=== PATIENT | male | born 1935 | race Caucasian/White ===

== ENCOUNTER 2017-07-15 20:46 | Inpatient (IN) | payer OTHER ==
[~2017-07-15] VITALS: Ht 165.1 cm; Wt 58.8 kg
[2017-07-15] MEDS ORDERED: SOD CHLORIDE 0.9% 1,000 ML IV STA (21:13)
[2017-07-15] MEDS ORDERED: ASPIRIN 325 MG TAB PO STA (21:13)
[2017-07-15 21:37] LABS: BASOPHIL # 0.1 10^3/ul (0.0-0.1); BASOPHILS % 0.5 % (0.0-2.0); EOSINOPHILS # 0.2 10^3/ul (0.0-0.5); EOSINOPHILS % 1.9 % (0.0-7.0); HEMATOCRIT 36.8 % (42.0-52.0); HEMOGLOBIN 11.1 g/dl (14.0-18.0); LYMPHOCYTES # 2.2 10^3/ul (0.8-2.9); LYMPHOCYTES % 21.6 % (15.0-51.0); MEAN CORPUSCULAR HEMOGLOBIN 20.9 pg (29.0-33.0); MEAN CORPUSCULAR HGB CONC 30.2 g/dl (32.0-37.0); MEAN CORPUSCULAR VOLUME 69.3 fl (82.0-101.0); MONOCYTE # 0.6 10^3/ul (0.3-0.9); MONOCYTES % 6.2 % (0.0-11.0); NEUTROPHILS % 69.4 % (39.0-77.0); PLATELET COUNT 228 10^3/UL (140-415); RED BLOOD COUNT 5.31 10^6/ul (4.70-6.10); RED CELL DISTRIBUTION WIDTH 15.4 % (11.5-14.5)
[2017-07-15] MEDS ORDERED: SYMB80120 INHALATION (21:45)
[2017-07-15] MEDS ORDERED: GLIP5TAB13 PO (21:46)
[2017-07-15] MEDS ORDERED: LISI20TA11 PO (21:46)
[2017-07-15] MEDS ORDERED: TRAZ50TA18 PO (21:46)
[2017-07-15] MEDS ORDERED: TERA10CA42 PO (21:47)
[2017-07-15] MEDS ORDERED: ALBU8.5H3 INH (21:48)
[2017-07-15] MEDS ORDERED: LOVA20TA PO (21:48)
[2017-07-15 21:53] LABS: INR 1.02; PROTIME 13.4 Sec (12.2-14.2)
[2017-07-15 21:54] LABS: PARTIAL THROMBOPLASTIN TIME 29.2 Sec (25.0-35.0)
[2017-07-15 21:58] LABS: ANION GAP 19 (8-16); BLOOD UREA NITROGEN 29 mg/dl (7-20); CALCIUM 8.8 mg/dl (8.4-10.2); CARBON DIOXIDE 26 mmol/L (21-31); CHLORIDE 100 mmol/L (97-110); CREATININE 1.74 mg/dl (0.61-1.24); GLUCOSE 236 mg/dl (70-220); POTASSIUM 4.6 mmol/L (3.5-5.1); SODIUM 140 mmol/L (135-144)
[2017-07-15 22:10] LABS: TROPONIN-I < 0.012 ng/ml (0.00-0.12)
--- NOTE | 2017-07-15 22:11 | RADRPT ---
PROCEDURE: XR Chest. CLINICAL INDICATION: Chest Pain. TECHNIQUE: Single frontal view of the chest. COMPARISON: None. FINDINGS: The cardiomediastinal silhouette is within normal limits. Atherosclerotic calcifications in the thor acic aorta. Likely hyperinflation of COPD with changes of centrolobular emphysema. Mild bibasilar atelectasis versus airspace disease. The lungs are clear. No signs of pleural fluid or pneumothorax are seen. The osseous structures and soft tissues are unremarkable. IMPRESSION: Mild failure. RPTAT: [facility] Physician Ingrid Date Time Electronically viewed and signed by Physician Ingrid on 07/15/2017 22:11 RS/
[2017-07-15 22:12] VITALS: TEMP 96.5
--- NOTE | 2017-07-15 22:55 | ERA ---
ER Documentation Chief Complaint Date/Time DATE: 07/15/17 TIME: 22:44 Chief Complaint JHOANA RA100 from home, hypotension,mild headache HPI This is an 82-year-old male with a past medical history of hypertension, diabetes, COPD, sleeping issues, BPH who is presenting with sudden onset moderate pressure-like left-sided chest pain radiating to the right arm while sitting on his couch. He got up from the couch and suddenly collapsed. He did not lose consciousness, but he felt very faint. An ambulance was called and his systolic blood pressure was found to be in the 70s by paramedics. The patient was transferred here for further evaluation. The patient's chest pain and lightheadedness resolved in route. He did take Tylenol prior to arrival, but he has not taken any aspirin. The patient does not endorse any chest pain symptoms at this time. The patient was started on IV fluids en route to the hospital per He has not felt sick recently. He denies any fever or chills. He denies any nausea or vomiting. He denies any shortness of breath. He denies any abdominal pain. He denies any focal deficits. He has no weakness or numbness or tingling to the face or extremities. ROS All systems reviewed and are negative except as per history of present illness. Medications Home Meds Reported Medications Lovastatin* (Lovastatin*) 20 Mg Tablet, 20 MG PO HS, TAB 07/15/17 Albuterol Sulfate* (Proair HFA*) 8.5 Gm Hfa.aer.ad, 2 PUFF INH Q4H Y for WHEEZING AND SOB, #1 INHALER 07/15/17 Terazosin Hcl* (Terazosin Hcl*) 10 Mg Capsule, 10 MG PO HS, CAP 07/15/17 Glipizide* (Glipizide*) 5 Mg Tablet, 5 MG PO AC BREAKFAST, TAB 07/15/17 Trazodone Hcl* (Trazodone Hcl*) 50 Mg Tablet, 50 MG PO QHS, #30 TAB 07/15/17 Lisinopril* (Lisinopril*) 20 Mg Tablet, 20 MG PO DAILY, #30 TAB 07/15/17 Budesonide-Formoterol Fumarate* (Symbicort*) 80-4.5 Inha, 2 PUFFS INHALATION BID , #1 EACH 07/15/17 Allergies Allergies: Coded Allergies: erythromycin base (Verified Allergy, Unknown, 07/15/17) PMhx/Soc History of Surgery: Yes (appy, eye lid surgery) Anesthesia Reaction: No Hx Neurological Disorder: No Hx Respiratory Disorders: Yes (copd) Hx Cardiac Disorders: Yes (htn, high cholesterol) Hx Psychiatric Problems: No Hx Miscellaneous Medical Probl: Yes (dm, kidney disease stage 3, mediteranean anemia) Hx Alcohol Use: Yes (0wine) Hx Substance Use: No Hx Tobacco Use: Yes Smoking Status: Former smoker FmHx Family History: diabetes Physical Exam Vitals Vital Signs Date Time Temp Pulse Resp B/P Pulse Ox O2 Delivery O2 Flow Rate FiO2 07/15/17 22:12 96.5 108 16 99/48 94 Nasal Cannula 2.0 07/15/17 21:34 Nasal Cannula 2 07/15/17 20:55 100.3 85 18 73/37 89 Physical Exam Const: No apparent distress Head: Atraumatic Eyes: Normal Conjunctiva ENT: Normal External Ears, Nose and Mouth. Neck: Full range of motion.~ No meningismus. Resp: Clear to auscultation bilaterally Cardio: Regular rate and rhythm, no murmurs Abd: Soft, non tender, non distended. Normal bowel sounds Skin: No petechiae or rashes Back: No midline or flank tenderness Ext: No cyanosis, or edema, mild pallor Neur: Awake and alert Psych: Normal Mood and Affect Result Diagram: 07/15/17211407/15/172114 Results 24 hrs Laboratory Tests Test 07/15/17 21:15 White Blood Count 10.010^3/ul Red Blood Count 5.3110^6/ul Hemoglobin 11.1g/dl Hematocrit 36.8% Mean Corpuscular Volume 69.3fl Mean Corpuscular Hemoglobin 20.9pg Mean Corpuscular Hemoglobin Concent 30.2g/dl Red Cell Distribution Width 15.4% Platelet Count 08941^3/UL Mean Platelet Volume 9.0fl Neutrophils % 69.4% Lymphocytes % 21.6% Monocytes % 6.2% Eosinophils % 1.9% Basophils % 0.5% Nucleated Red Blood Cells % 0.0/100WBC Neutrophils # (Manual) 710^3/ul Lymphocytes # 2.210^3/ul Monocytes # 0.610^3/ul Eosinophils # 0.210^3/ul Basophils # 0.110^3/ul Nucleated Red Blood Cells # 0.010^3/ul Prothrombin Time 13.4Sec Prothrombin Time Ratio 1.0 INR International Normalized Ratio 1.02 Activated Partial Thromboplast Time 29.2Sec Sodium Level 140mmol/L Potassium Level 4.6mmol/L Chloride Level 100mmol/L Carbon Dioxide Level 26mmol/L Anion Gap 19 Blood Urea Nitrogen 29mg/dl Creatinine 1.74mg/dl Glucose Level 236mg/dl Calcium Level 8.8mg/dl Troponin I < 0.012ng/ml Current Medications Medications (Trade) Dose Ordered Sig/Sean Route PRN Reason Start Time Stop Time Status Last Admin Dose Admin Sodium Chloride (NS) 1,000 ml @ 1,000 mls/hr Q1H STAT IV 07/15/17 21:13 07/15/17 22:12 DC 07/15/17 21:46 Aspirin (Aspirin) 325 mg ONCE STAT PO 07/15/17 21:13 07/15/17 21:14 DC 07/15/17 21:46 Procedures/MDM The patient's presentation warrants a cardiac workup. Patient's chest x-ray was read by the radiologist as having mild failure with vascular congestion. The patient's EKG demonstrates a normal sinus rhythm at 88 bpm. The patient's [place] interval and QRS are within normal limits. The patient's QTC is less than 500 and appears less than half the RR interval. The patient does have ST depressions in the inferior leads of 2, 3 and aVF. This is concerning for inferior ischemia. The patient's blood work was obtained and reviewed. The patient does not have leukocytosis and I do not suspect an infectious etiology. He does have mild anemia does not need to be emergently treated. Patient does have an elevated creatinine, which could represent acute kidney injury, but is not double his baseline. The patient's troponin is negative. I will add a BNP as well, but the patient does not have significant rales and I do not suspect significant heart failure clinically. Patient got aspirin and IV fluids in the emergency department. He was also started on nasal cannula as he was hypoxic to the 87-88%. I do not intend to start heparin at this time as the patient's chest pain completely resolved and his troponin is negative. He will require serial troponins and EKGs in the hospital. He will require cardiology consult in the hospital. Departure Diagnosis: Primary Impression: Chest pain at rest Additional Impressions: Hypotension Qualified Code: I95.9 - Hypotension, unspecified hypotension type Hypoxia ST segment depression Postural dizziness with presyncope Condition: Serious BELLA VALLE MD Jul 15, 2017 22:55
[2017-07-15] MEDS ORDERED: SOD CHLORIDE 0.9% 1,000 ML IV SCH (23:05)
[2017-07-15] MEDS ORDERED: ACETAMINOPHEN 325 MG TAB PO PRN (23:30)
[2017-07-15] MEDS ORDERED: ONDANSETRON 4 MG INJ IV PRN (23:30)
[2017-07-16] VITALS (14 sets, daily range): BP systolic 83–140; BP diastolic 47–63; PULSE 50–107; RESP 17–20; Ht 165.1 cm; Wt 58.8 kg
[2017-07-16] MEDS ORDERED: INSULIN GLARGINE [LANtus] 3 ML PEN SC ONE (01:00)
[2017-07-16] MEDS ORDERED: ONDANSETRON 4 MG INJ IV PRN (01:00)
[2017-07-16] MEDS ORDERED: morphine 2 MG INJ IV PRN (01:00)
[2017-07-16] MEDS ORDERED: NITROGLYCERIN (SL) 0.4 MG TAB SL PRN (01:00)
[2017-07-16] MEDS ORDERED: INSULIN ASPART [NOVOLOG] 3 ML PEN SC ONE (01:00)
[2017-07-16] MEDS ORDERED: ALBUTEROL HFA 8 GM INHALER INH PRN (01:00)
[2017-07-16] MEDS ORDERED: ALBUTEROL/IPRATROPIUM (NEB) 3 ML AMP HHN PRN (01:00)
[2017-07-16] MEDS ORDERED: ACETAMINOPHEN 325 MG TAB PO PRN (01:00)
[2017-07-16] MEDS ORDERED: GLUCOSE GEL 15 GRAM TUBE PO PRN ×2 (01:30)
[2017-07-16] MEDS ORDERED: DEXTROSE 50% 50 ML SYRINGE IV PRN ×2 (01:30)
[2017-07-16] MEDS ORDERED: GLUCOSE GEL 15 GRAM TUBE BUCCAL PRN (01:30)
[2017-07-16] MEDS ORDERED: GLUCAGON 1 MG INJ IM PRN (01:30)
[2017-07-16] MEDS: HEPARIN 5,000 UNIT/0.5 ML VIAL SC SCH ×3 (01:54→21:15)
[2017-07-16] MEDS: ACCU-CHEK XX SCH (01:54)
[2017-07-16] MEDS ORDERED: ALBUTEROL 18 GM INHALER INH PRN (02:00)
[2017-07-16 04:28] LABS: BASOPHILS % 0.5 % (0.0-2.0); EOSINOPHILS # 0.1 10^3/ul (0.0-0.5); EOSINOPHILS % 0.9 % (0.0-7.0); HEMATOCRIT 33.9 % (42.0-52.0); HEMOGLOBIN 10.3 g/dl (14.0-18.0); LYMPHOCYTES # 2.3 10^3/ul (0.8-2.9); LYMPHOCYTES % 26.7 % (15.0-51.0); MEAN CORPUSCULAR HEMOGLOBIN 21.6 pg (29.0-33.0); MEAN CORPUSCULAR HGB CONC 30.4 g/dl (32.0-37.0); MEAN CORPUSCULAR VOLUME 71.1 fl (82.0-101.0); MEAN PLATELET VOLUME 9.5 fl (7.4-10.4); MONOCYTE # 0.6 10^3/ul (0.3-0.9); MONOCYTES % 6.3 % (0.0-11.0); NEUTROPHILS % 65.1 % (39.0-77.0); PLATELET COUNT 208 10^3/UL (140-415); RED BLOOD COUNT 4.77 10^6/ul (4.70-6.10); RED CELL DISTRIBUTION WIDTH 15.4 % (11.5-14.5); WHITE BLOOD COUNT 8.8 10^3/ul (4.8-10.8)
[2017-07-16] MEDS ORDERED: SOD CHLORIDE 0.9% 250 ML IV ONE (04:30)
[2017-07-16 04:50] LABS: ALBUMIN 3.3 g/dl (3.3-4.9); ALBUMIN/GLOBULIN RATIO 1.13; BILIRUBIN,INDIRECT 0.2 mg/dl (0-1.1); BILIRUBIN,TOTAL 0.2 mg/dl (0.2-1.3); CALCIUM 8.4 mg/dl (8.4-10.2); CHOL/HDL RATIO 3.6 RATIO; CREATININE 1.69 mg/dl (0.61-1.24); MAGNESIUM 1.8 mg/dl (1.7-2.5); PHOSPHORUS 3.5 mg/dl (2.5-4.9); POTASSIUM 4.1 mmol/L (3.5-5.1); TOTAL PROTEIN 6.2 g/dl (6.1-8.1)
[2017-07-16 04:51] LABS: CREATINE KINASE 33 IU/L (23-200)
[2017-07-16 05:12] LABS: CK-MB 1.52 ng/ml (0.0-2.4); TROPONIN-I < 0.012 ng/ml (0.00-0.12)
[2017-07-16 05:51] LABS: THYROID STIMULATING HORMONE 0.577 MIU/L (0.465-4.680)
--- NOTE | 2017-07-16 06:09 | HP ---
Date/Time of Note Date/Time of Note DATE: 07/16/17 TIME: 05:55 Assessment/Plan VTE Prophylaxis VTE Prophylaxis Intervention: heparin Lines/Catheters IV Catheter Type (from Nrsg): Saline Lock Assessment/Plan Assessment/Plan 1. Chest pain, rule out ACS: EKG was ST depression -Continue telemetry monitoring -Supplemental oxygen, aspirin, statin, as needed and nitro and morphine. Patient has been hypotensive and as such no beta-viji -Trend troponin -2D echo and cardiology consult 2. Hypotension -Likely from dehydration versus cardiac etiology -will give gentle hydration 3. Acute CHF exacerbation - will obtain 2D echo - will hold diuresis given repeated hypotension 4. COPD -Supplemental oxygen, bronchodilators. Steroid as needed 5. Presumed acute kidney injury -Gentle IV fluid -Monitor a.m. lab and then will determine if renal ultrasound and nephrology consult is warranted 6. History of hypertension: Patient has been hypotensive -Hold antihypertensives for now 7. Type 2 diabetes -Check A1c -Insulin while in-house 8. History of dyslipidemia - will check fasting lipid panel in the morning - Continue statin HPI/ROS Admit Date/Time Admit Date/Time Jul 15, 2017 at 23:06 Hx of Present Illness This is an 82-year-old male with history of hypertension, diabetes, COPD and BPH who presented to the emergency department complaining of chest pain, lightheadedness and shortness of breath. Patient was sitting at home when he had sudden onset of midsternal chest pain, which is pressure-like with radiation to his right arm. When the patient got up, he felt weak and lightheaded and fell to the floor. No loss of consciousness. Denied palpitations, fever, chills, nausea, vomiting or diaphoresis. He did report that over the past 2-3 days, he has been feeling weak. When he presented to the ER patient was hypotensive with a blood pressure of 73/ 37, febrile with a temperature of 100.3. EKG shows ST depression. Labs shows that first troponin is negative, hemoglobin 11.1 with MCV of 69, creatinine 1.74 and glucose 236 otherwise the rest of CBC and BMP are within normal limits. Chest x-ray shows mild failure. He received aspirin and insulin while in the ER. . PMH/Family/Social Past Medical History Medical History: diabetes, hypertension, other (COPD) Social History Alcohol Use: none Smoking Status: Former smoker Drug Use: none Exam/Review of Systems Vital Signs Vitals Vital Signs Date Time Temp Pulse Resp B/P Pulse Ox O2 Delivery O2 Flow Rate FiO2 07/16/17 05:05 66 18 101/47 07/16/17 03:59 97.8 95 07/16/17 01:53 2.0 07/16/17 01:00 Nasal Cannula Intake and Output 07/15/17 07/15/17 07/16/17 15:00 23:00 07:00 Output Total 200 ml Balance -200 ml Exam Constitutional: other (Sleepy but arousable, appears somehow weak) Head: atraumatic, normocephalic Eyes: EOMI, PERRL Respiratory: clear to auscultation, normal air movement Cardiovascular: nl pulses, regular rate and rhythm Gastrointestinal: non-tender, soft Extremities: normal pulses Labs Result Diagram: 07/16/17 0344 07/16/17 0344 Medications Medications Current Medications Sodium Chloride (NS) 1,000 ml @ 80 mls/hr [id number] IV ; Start 07/15/17 at 23:05 ; Stop 07/16/17 at 11:34 Lisinopril (Zestril) 20 mg DAILY PO ; Start 07/16/17 at 09:00 Terazosin HCl (Hytrin) 10 mg HS PO ; Start 07/16/17 at 21:00 Trazodone HCl (Desyrel) 50 mg QHS PO ; Start 07/16/17 at 21:00 Miscellaneous Information 2 puffs BID INHALATION ; Start 07/16/17 at 09:00; Status UNV Atorvastatin Calcium (Lipitor) 20 mg HS PO ; Start 07/16/17 at 21:00 Ondansetron HCl (Zofran Inj) 4 mg Q4H PRN IV NAUSEA AND/OR VOMITING; Start at 01:00 Nitroglycerin (Nitroglycerin (Sl Tab) 0.4 Mg) 1 tab Q5M PRN SL ANGINA; Start at 01:00 Morphine Sulfate (morphine) 2 mg Q4H PRN IV PAIN; Start 07/16/17 at 01:00 Acetaminophen (Tylenol Tab) 650 mg Q6H PRN PO PAIN AND OR ELEVATED TEMP; Start 07/16/17 at 01:00 Aspirin (Aspirin) 81 mg DAILY PO ; Start 07/16/17 at 09:00 Diagnostic Test (Pha) (Accu-Chek) 1 ea 02 XX ; Start 07/16/17 at 02:00 Insulin Glargine (Lantus) 15 unit HS SC ; Start 07/16/17 at 21:00 Heparin Sodium (Porcine) (Heparin (5000 Units/0.5 ml)) 5,000 unit BID SC Last administered on 07/16/17t 01:54; Admin Dose 5,000 UNIT; Start 07/16/17 at 02:00 Miscellaneous Information 1 ea NOTE XX ; Start 07/16/17 at 01:30 Glucose (Glutose) 15 gm Q15M PRN PO DECREASED GLUCOSE; Start 07/16/17 at 01:30 Glucose (Glutose) 22.5 gm Q15M PRN PO DECREASED GLUCOSE; Start 07/16/17 at 01: 30 Dextrose (D50w Syringe) 25 ml Q15M PRN IV DECREASED GLUCOSE; Start 07/16/17 at 01:30 Dextrose (D50w Syringe) 50 ml Q15M PRN IV DECREASED GLUCOSE; Start 07/16/17 at 01:30 Glucagon (Glucagen) 1 mg Q15M PRN IM DECREASED GLUCOSE; Start 07/16/17 at 01:30 Glucose (Glutose) 15 gm Q15M PRN BUCCAL DECREASED GLUCOSE; Start 07/16/17 at 01 :30 Albuterol (Ventolin Hfa) 2 puff Q4H PRN INH WHEEZING, SOB; Start 07/16/17 at 02 :00 MERVAT FERRO MD Jul 16, 2017 06:05
[2017-07-16] MEDS: INSULIN ASPART [NOVOLOG] 3 ML PEN SC SCH ×4 (08:00→21:00)
[2017-07-16] MEDS: LISINOPRIL 20 MG TAB PO SCH (09:00)
[2017-07-16] MEDS: SALMETEROL/FLUTICASONE 100/50 INHA INH SCH ×2 (10:12→21:04)
[2017-07-16] MEDS: ASPIRIN 81 MG TAB PO SCH (10:13)
[2017-07-16 12:16] LABS: CREATINE KINASE 32 IU/L (23-200)
[2017-07-16 12:29] LABS: CK-MB 1.48 ng/ml (0.0-2.4); TROPONIN-I < 0.012 ng/ml (0.00-0.12)
--- NOTE | 2017-07-16 14:26 | PN ---
Date/Time of Note Date/Time of Note DATE: 07/16/17 TIME: 14:24 Assessment/Plan VTE Prophylaxis VTE Prophylaxis Intervention: heparin Lines/Catheters IV Catheter Type (from Nrsg): Saline Lock Assessment/Plan Chief Complaint/Hosp Course Assessment and plan 1. Chest pain. EKG noted with ST depression. Continue telemetry monitoring. Initial troponins negative. Follow-up with senior it specialist. Echocardiogram pending 2. Hypotension. Continue IV hydration. Stable at present. Will monitor 3. CHF exacerbation. Follow-up on echocardiogram. Diuresis on hold due to hypotension. 4. History of COPD. Off O2. Continue bronchodilators as needed. Stable at present. 5. Acute kidney injury. Continue on IV hydration. 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 Diabetes. Continue insulin regimen 8. History of dyslipidemia. Continue on statin Disposition and plan:senior it specialist consulted. Continue telemetry monitoring. Follow-up with recommendations and echocardiogram. Discussed plan of care with Dr. Orlando Problems: Subjective 24 Hr Interval Summary Free Text/Dictation Resting bed. Family at bedside. No reported chest pain at this time. Exam/Review of Systems Vital Signs Vitals Vital Signs Date Time Temp Pulse Resp B/P Pulse Ox O2 Delivery O2 Flow Rate FiO2 07/16/17 11:24 97.5 65 20 110/55 98 07/16/17 01:53 2.0 07/16/17 01:00 Nasal Cannula Intake and Output 07/15/17 07/15/17 07/16/17 14:59 22:59 06:59 Intake Total 250 ml Output Total 200 ml Balance 50 ml Exam Constitutional: alert, oriented Psych: nl mood/affect Head: normocephalic Eyes: nl conjunctiva Respiratory: clear to auscultation, normal air movement Cardiovascular: regular rate and rhythm Gastrointestinal: non-tender, soft Extremities: normal pulses Neurological: LOBBY CONCIERGE II-XII intact, nl mental status, nl speech Results Result Diagram: 07/16/17 0344 07/16/17 0344 Results 24 hrs Laboratory Tests Test 07/15/17 21:15 07/16/17 00:29 07/16/17 01:38 07/16/17 03:44 White Blood Count 10.0 8.8 Red Blood Count 5.31 4.77 Hemoglobin 11.1 L 10.3 L Hematocrit 36.8 L 33.9 L Mean Corpuscular Volume 69.3 L 71.1 L Mean Corpuscular Hemoglobin 20.9 L 21.6 L Mean Corpuscular Hemoglobin Concent 30.2 L 30.4 L Red Cell Distribution Width 15.4 H 15.4 H Platelet Count 228 208 Mean Platelet Volume 9.0 9.5 Neutrophils % 69.4 65.1 Lymphocytes % 21.6 26.7 Monocytes % 6.2 6.3 Eosinophils % 1.9 0.9 Basophils % 0.5 0.5 Nucleated Red Blood Cells % 0.0 0.0 Neutrophils # (Manual) 7 6 Lymphocytes # 2.2 2.3 Monocytes # 0.6 0.6 Eosinophils # 0.2 0.1 Basophils # 0.1 0.0 Nucleated Red Blood Cells # 0.0 0.0 Prothrombin Time 13.4 Prothrombin Time Ratio 1.0 INR International Normalized Ratio 1.02 Activated Partial Thromboplast Time 29.2 Sodium Level 140 138 Potassium Level 4.6 4.1 Chloride Level 100 109 Carbon Dioxide Level 26 20 L Anion Gap 19 H 13 Blood Urea Nitrogen 29 H 30 H Creatinine 1.74 H 1.69 H Glucose Level 236 H 180 Calcium Level 8.8 8.4 Troponin I < 0.012 < 0.012 Bedside Glucose 374 H 347 H Hemoglobin A1c 6.3 H Phosphorus Level 3.5 Magnesium Level 1.8 Total Bilirubin 0.2 Direct Bilirubin 0.00 Indirect Bilirubin 0.2 Aspartate Amino Transf (AST/SGOT) 33 Alanine Aminotransferase (ALT/SGPT) 20 Alkaline Phosphatase 52 Creatine Kinase 33 Creatine Kinase Index 4.6 Creatinine Kinase MB (Mass) 1.52 Total Protein 6.2 Albumin 3.3 Globulin 2.90 Albumin/Globulin Ratio 1.13 Triglycerides Level 41 Cholesterol Level 102 LDL Cholesterol, Calculated 66 HDL Cholesterol 28 L Cholesterol/HDL Ratio 3.6 Thyroid Stimulating Hormone (TSH) 0.577 Test 07/16/17 04:09 07/16/17 08:58 07/16/17 11:33 07/16/17 12:56 Bedside Glucose 168 71 67 L Creatine Kinase 32 Creatine Kinase Index 4.6 Creatinine Kinase MB (Mass) 1.48 Troponin I < 0.012 Medications Medications Current Medications Lisinopril (Zestril) 20 mg DAILY PO ; Start 07/16/17 at 09:00 Terazosin HCl (Hytrin) 10 mg HS PO ; Start 07/16/17 at 21:00 Trazodone HCl (Desyrel) 50 mg QHS PO ; Start 07/16/17 at 21:00 Salmeterol Xinafoate/ Fluticasone (Advair 100/50 Diskus) 1 inh BID INH Last administered on 07/16/17 10:12; Admin Dose 1 INH; Start 07/16/17 at 09:00 Atorvastatin Calcium (Lipitor) 20 mg HS PO ; Start 07/16/17 at 21:00 Ondansetron HCl (Zofran Inj) 4 mg Q4H PRN IV NAUSEA AND/OR VOMITING; Start at 01:00 Nitroglycerin (Nitroglycerin (Sl Tab) 0.4 Mg) 1 tab Q5M PRN SL ANGINA; Start at 01:00 Morphine Sulfate (morphine) 2 mg Q4H PRN IV PAIN; Start 07/16/17 at 01:00 Acetaminophen (Tylenol Tab) 650 mg Q6H PRN PO PAIN AND OR ELEVATED TEMP; Start 07/16/17 at 01:00 Aspirin (Aspirin) 81 mg DAILY PO Last administered on 07/16/17 10:13; Admin Dose 81 MG; Start 07/16/17 at 09:00 Diagnostic Test (Pha) (Accu-Chek) 1 ea 02 XX ; Start 07/16/17 at 02:00 Insulin Glargine (Lantus) 15 unit HS SC ; Start 07/16/17 at 21:00 Heparin Sodium (Porcine) (Heparin (5000 Units/0.5 ml)) 5,000 unit BID SC Last administered on 07/16/17 10:15; Admin Dose 5,000 UNIT; Start 07/16/17 at 02:00 Miscellaneous Information 1 ea NOTE XX ; Start 07/16/17 at 01:30 Glucose (Glutose) 15 gm Q15M PRN PO DECREASED GLUCOSE; Start 07/16/17 at 01:30 Glucose (Glutose) 22.5 gm Q15M PRN PO DECREASED GLUCOSE; Start 07/16/17 at 01: 30 Dextrose (D50w Syringe) 25 ml Q15M PRN IV DECREASED GLUCOSE; Start 07/16/17 at 01:30 Dextrose (D50w Syringe) 50 ml Q15M PRN IV DECREASED GLUCOSE; Start 8/19/17 at 01:30 Glucagon (Glucagen) 1 mg Q15M PRN IM DECREASED GLUCOSE; Start 07/16/17 at 01:30 Glucose (Glutose) 15 gm Q15M PRN BUCCAL DECREASED GLUCOSE; Start 07/16/17 at 01 :30 Albuterol (Ventolin Hfa) 2 puff Q4H PRN INH WHEEZING, SOB; Start 07/16/17 at 02 :00 WOO HECK Jul 16, 2017 14:26
--- NOTE | 2017-07-16 19:02 | CONS ---
Date/Time of Note Date/Time of Note DATE: 07/16/17 TIME: 18:53 Assessment/Plan Assessment/Plan Additional Assessment/Plan 1. Acute Kindey injury vs MIREYA on CKD due to Hemodyamicas from Huypotension and CHF 2. CHF exacerbation 3. chest pain 4, COPD 5. possible CKD from CHF- unknown creatinine and unknown stage Plan: Continue IVF hydration Hold diuretics Avoid hypotension Urine stuides has been ordered including, Urine prot/cr ration, Urine Na, urine uric acid, Urine eosinophils CK total, Uric acid Renal US has been ordered pt received IVF since admission, CXR previosly showed mild failure, Hodl IVF tonight, will follow up on CXR in AM to decide if pt needs IVF vs resumption of diuretics, BNP has been orderd with AML thanks for consultation, will follow up Consultation Date/Type/Reason Admit Date/Time Jul 15, 2017 at 23:06 Date of Consultation: Jul 16, 2017 Type of Consultation: NEPHROLOGY Reason for Consultation acute kidney injury, chest pain Referring Provider: MERVAT FERRO MD Hx of Present Illness 82-year-old male with history of hypertension, diabetes, COPD and BPH who presented to the emergency department complaining of chest pain, lightheadedness and shortness of breath. Patient was sitting at home when he had sudden onset of midsternal chest pain, which is pressure-like with radiation to his right arm. When the patient got up, he felt weak and lightheaded and fell to the floor. No loss of consciousness. Denied palpitations, fever, chills, nausea, vomiting or diaphoresis. He did report that over the past 2-3 days, he has been feeling weak. When he presented to the ER patient was hypotensive with a blood pressure of 73/ 37, febrile with a temperature of 100.3. EKG shows ST depression. Labs shows that first troponin is negative, hemoglobin 11.1 with MCV of 69, creatinine 1.74 and glucose 236 otherwise the rest of CBC and BMP are within normal limits. Chest x-ray shows mild failure. pt had a creatioine 1.74 on admission ,diuretics has been hold, gentle hydration given, still elevated Cr, renal has been consulted for it Psychological: nl mood/affect Past Medical History Medical History: diabetes, hypertension, other (COPD) Social History Alcohol Use: none Smoking Status: Former smoker Drug Use: none Exam/Review of Systems Vital Signs Vitals Vital Signs Date Time Temp Pulse Resp B/P Pulse Ox O2 Delivery O2 Flow Rate FiO2 07/16/17 16:16 97.9 71 18 128/60 93 07/16/17 08:20 Nasal Cannula 2.0 Intake and Output 07/15/17 07/15/17 07/16/17 15:00 23:00 07:00 Intake Total 250 ml Output Total 200 ml Balance 50 ml Exam Constitutional: weak, tired, sleepy Head: atraumatic, normocephalic Eyes: EOMI, PERRL Respiratory: clear to auscultation, normal air movement Cardiovascular: nl pulses, regular rate and rhythm Gastrointestinal: non-tender, soft Extremities: normal pulses Results Result Diagram: 07/16/17 0344 07/16/17 0344 Results 24 hrs Laboratory Tests Test 07/15/17 21:15 07/16/17 00:29 07/16/17 01:38 07/16/17 03:44 White Blood Count 10.0 8.8 Red Blood Count 5.31 4.77 Hemoglobin 11.1 L 10.3 L Hematocrit 36.8 L 33.9 L Mean Corpuscular Volume 69.3 L 71.1 L Mean Corpuscular Hemoglobin 20.9 L 21.6 L Mean Corpuscular Hemoglobin Concent 30.2 L 30.4 L Red Cell Distribution Width 15.4 H 15.4 H Platelet Count 228 208 Mean Platelet Volume 9.0 9.5 Neutrophils % 69.4 65.1 Lymphocytes % 21.6 26.7 Monocytes % 6.2 6.3 Eosinophils % 1.9 0.9 Basophils % 0.5 0.5 Nucleated Red Blood Cells % 0.0 0.0 Neutrophils # (Manual) 7 6 Lymphocytes # 2.2 2.3 Monocytes # 0.6 0.6 Eosinophils # 0.2 0.1 Basophils # 0.1 0.0 Nucleated Red Blood Cells # 0.0 0.0 Prothrombin Time 13.4 Prothrombin Time Ratio 1.0 INR International Normalized Ratio 1.02 Activated Partial Thromboplast Time 29.2 Sodium Level 140 138 Potassium Level 4.6 4.1 Chloride Level 100 109 Carbon Dioxide Level 26 20 L Anion Gap 19 H 13 Blood Urea Nitrogen 29 H 30 H Creatinine 1.74 H 1.69 H Glucose Level 236 H 180 Calcium Level 8.8 8.4 Troponin I < 0.012 < 0.012 Bedside Glucose 374 H 347 H Hemoglobin A1c 6.3 H Phosphorus Level 3.5 Magnesium Level 1.8 Total Bilirubin 0.2 Direct Bilirubin 0.00 Indirect Bilirubin 0.2 Aspartate Amino Transf (AST/SGOT) 33 Alanine Aminotransferase (ALT/SGPT) 20 Alkaline Phosphatase 52 Creatine Kinase 33 Creatine Kinase Index 4.6 Creatinine Kinase MB (Mass) 1.52 Total Protein 6.2 Albumin 3.3 Globulin 2.90 Albumin/Globulin Ratio 1.13 Triglycerides Level 41 Cholesterol Level 102 LDL Cholesterol, Calculated 66 HDL Cholesterol 28 L Cholesterol/HDL Ratio 3.6 Thyroid Stimulating Hormone (TSH) 0.577 Test 07/16/17 04:09 07/16/17 08:58 07/16/17 11:33 07/16/17 12:56 Bedside Glucose 168 71 67 L Creatine Kinase 32 Creatine Kinase Index 4.6 Creatinine Kinase MB (Mass) 1.48 Troponin I < 0.012 Test 07/16/17 17:54 Bedside Glucose 101 Medications Medications Current Medications Lisinopril (Zestril) 20 mg DAILY PO ; Start 07/16/17 at 09:00 Terazosin HCl (Hytrin) 10 mg HS PO ; Start 07/16/17 at 21:00 Trazodone HCl (Desyrel) 50 mg QHS PO ; Start 07/16/17 at 21:00 Salmeterol Xinafoate/ Fluticasone (Advair 100/50 Diskus) 1 inh BID INH Last administered on 07/16/17t 10:12; Admin Dose 1 INH; Start 07/16/17 at 09:00 Atorvastatin Calcium (Lipitor) 20 mg HS PO ; Start 07/16/17 at 21:00 Ondansetron HCl (Zofran Inj) 4 mg Q4H PRN IV NAUSEA AND/OR VOMITING; Start at 01:00 Nitroglycerin (Nitroglycerin (Sl Tab) 0.4 Mg) 1 tab Q5M PRN SL ANGINA; Start at 01:00 Morphine Sulfate (morphine) 2 mg Q4H PRN IV PAIN; Start 07/16/17 at 01:00 Acetaminophen (Tylenol Tab) 650 mg Q6H PRN PO PAIN AND OR ELEVATED TEMP; Start 07/16/17 at 01:00 Aspirin (Aspirin) 81 mg DAILY PO Last administered on 07/16/17 10:13; Admin Dose 81 MG; Start 07/16/17 at 09:00 Diagnostic Test (Pha) (Accu-Chek) 1 ea 02 XX ; Start 07/16/17 at 02:00 Insulin Glargine (Lantus) 15 unit HS SC ; Start 07/16/17 at 21:00 Heparin Sodium (Porcine) (Heparin (5000 Units/0.5 ml)) 5,000 unit BID SC Last administered on 07/16/17 10:15; Admin Dose 5,000 UNIT; Start 07/16/17 at 02:00 Miscellaneous Information 1 ea NOTE XX ; Start 07/16/17 at 01:30 Glucose (Glutose) 15 gm Q15M PRN PO DECREASED GLUCOSE; Start 07/16/17 at 01:30 Glucose (Glutose) 22.5 gm Q15M PRN PO DECREASED GLUCOSE; Start 07/16/17 at 01: 30 Dextrose (D50w Syringe) 25 ml Q15M PRN IV DECREASED GLUCOSE; Start 07/16/17 at 01:30 Dextrose (D50w Syringe) 50 ml Q15M PRN IV DECREASED GLUCOSE; Start 07/16/17 at 01:30 Glucagon (Glucagen) 1 mg Q15M PRN IM DECREASED GLUCOSE; Start 07/16/17 at 01:30 Glucose (Glutose) 15 gm Q15M PRN BUCCAL DECREASED GLUCOSE; Start 07/16/17 at 01 :30 Albuterol (Ventolin Hfa) 2 puff Q4H PRN INH WHEEZING, SOB; Start 07/16/17 at 02 :00 CHERRY MORALES MD Jul 16, 2017 19:01
[2017-07-16] MEDS: INSULIN GLARGINE [LANtus] 3 ML PEN SC SCH (21:00)
[2017-07-16] MEDS: traZODone 50 MG TAB PO SCH (21:04)
[2017-07-16] MEDS: ATORVASTATIN 20 MG TAB PO SCH (21:04)
[2017-07-16] MEDS: TERAZOSIN 5 MG CAP PO SCH (21:04)
[2017-07-17] VITALS (12 sets, daily range): BP systolic 119–149; BP diastolic 43–67; PULSE 60–96; RESP 18–20
[2017-07-17] MEDS: ACCU-CHEK XX SCH (02:00)
[2017-07-17 03:22] LABS: PROTEIN/CREAT RATIO 0.5 RATIO
[2017-07-17] MEDS: INSULIN ASPART [NOVOLOG] 3 ML PEN SC SCH ×4 (08:00→21:00)
[2017-07-17 08:29] LABS: BASOPHILS % 0.6 % (0.0-2.0); EOSINOPHILS # 0.2 10^3/ul (0.0-0.5); EOSINOPHILS % 3.5 % (0.0-7.0); HEMATOCRIT 36.2 % (42.0-52.0); HEMOGLOBIN 10.7 g/dl (14.0-18.0); LYMPHOCYTES # 1.8 10^3/ul (0.8-2.9); LYMPHOCYTES % 27.3 % (15.0-51.0); MEAN CORPUSCULAR HEMOGLOBIN 20.6 pg (29.0-33.0); MEAN CORPUSCULAR HGB CONC 29.6 g/dl (32.0-37.0); MEAN CORPUSCULAR VOLUME 69.7 fl (82.0-101.0); MEAN PLATELET VOLUME 9.3 fl (7.4-10.4); MONOCYTE # 0.4 10^3/ul (0.3-0.9); MONOCYTES % 6.7 % (0.0-11.0); NEUTROPHILS % 61.3 % (39.0-77.0); PLATELET COUNT 206 10^3/UL (140-415); RED BLOOD COUNT 5.19 10^6/ul (4.70-6.10); RED CELL DISTRIBUTION WIDTH 15.7 % (11.5-14.5); WHITE BLOOD COUNT 6.6 10^3/ul (4.8-10.8)
[2017-07-17] MEDS: SALMETEROL/FLUTICASONE 100/50 INHA INH SCH ×2 (08:35→21:20)
[2017-07-17] MEDS: ASPIRIN 81 MG TAB PO SCH (08:35)
[2017-07-17] MEDS: LISINOPRIL 20 MG TAB PO SCH (08:35)
[2017-07-17] MEDS: HEPARIN 5,000 UNIT/0.5 ML VIAL SC SCH ×2 (08:39→21:22)
[2017-07-17 08:46] LABS: CREATININE 1.16 mg/dl (0.61-1.24); POTASSIUM 4.7 mmol/L (3.5-5.1)
[2017-07-17 08:47] LABS: URIC ACID 7.8 mg/dl (3.1-7.9)
--- NOTE | 2017-07-17 09:12 | RADRPT ---
Echocardiogram Report Patient Name: JOSE MIGUEL DOMINGUEZ Gender: Male Date: 1935 Study Date: 16-Jul-2017 [employer]: [facility] Location: I Ref. Physician: MERVAT FERRO Quality: Technically Difficult Study Procedures: Transthoracic echocardiogram examination. Indications: Chest Pain. 2D/M Mode Doppler Measurement Value Normal Range Measurement Value Normal Range IVSd 2D 1.5 0.6 - 1.1 cm BERNICE Vmax 1.0 cm2 LVOT Diam 2.0 cm BERNICE VTI 1.0 cm2 AV Mean Alexis 2.1 m/sec AV Mean PG 20.6 mmHg AV Peak Alexis 2.9 m/sec AV [place] PG 33.7 mmHg AV VTI 76.9 cm LVOT Mean Alexis 0.7 m/sec LVOT Mean PG 2.2 mmHg LVOT Peak Alexis 0.9 m/sec LVOT Peak PG 3.4 mmHg LVOT VTI 28.0 cm PV Peak Alexis 0.8 m/sec PV Peak PG 3.0 mmHg Findings Left Ventricle: Normal left ventricular cavity size. Mild concentric left ventricular hypertrophy. The left ventricle is only seen in the subcostal images, difficult to determine EF. Right Ventricle: Normal right ventricular size. Left Atrium: There is mild enlargement of left atrium. Right Atrium: The right atrium is normal in size and appearance. Atrial Septum: Normal atrial septum. Mitral Valve: Mild mitral annular calcification. Leaflets also appear mildly calcified. Trivial mitral regurgitation. Aortic Valve: Moderate aortic stenosis by Doppler analysis from the off-axis subcostal images. Aortic cusps appear at least moderately calcified. Mild aortic regurgitation. Tricuspid Valve: Normal appearance of the tricuspid valve. The estimated Peak RVSP is 19 mmHg. There is trace to mild tricuspid regurgitation. Pulmonic Valve: Normal pulmonic valve appearance and function with trivial (physiologic) regurgitation. No evidence of pulmonic regurgitation. Pericardium: Normal pericardium with no significant pericardial effusion. Aorta: The aorta is not well visualized. IVC: Normal inferior vena cava appearance. Pulmonary Artery: Normal pulmonary artery size. Conclusions 1.Normal left ventricular cavity size. Mild concentric left ventricular hypertrophy. The left ventricle is only seen in the subcostal images, difficult to determine EF. 2.Moderate aortic stenosis by Doppler analysis from the off-axis subcostal images. Aortic cusps appear at least moderately calcified. Mild aortic regurgitation. Electronically Signed By: Dipesh Wakslak 17-Jul-2017 09:11:30 -0700 Patient Name: JOSE MIGUEL DOMINGUEZ Study Date: 16-Jul-2017 [id number]
--- NOTE | 2017-07-17 09:19 | RADRPT ---
PROCEDURE: Renal US. CLINICAL INDICATION: elevated creatiine, acute va scute on chronic renal failure, TECHNIQUE: Multiple sonographic images of the kidneys were obtained. The images were reviewed on a PACS workstation. COMPARISON: No prior studies are available for comparison. FINDINGS: The kidneys are well visualized. The right kidney measures 9.9 cm. The left kidney measures 9.4 cm. Blood flow is demonstrated to both kidneys by color Doppler. Both kidneys demonstrate increased jaciel l cortical echogenicity, suggesting renal parenchymal disease. There is mild pelvicaliectasis of th e right kidney, consistent with mild right hydronephrosis. There is no evidence of hydronephrosis o n the left. No shadowing renal calculus is seen. No perirenal collection is noted. The bladder measures 7.6 cm by 6.9 cm x 7.8 cm. The calculated bladder volume is 214.2 mL. Bilatera l ureteral jets are seen. IMPRESSION: 1. Bilateral echogenic kidneys, suggesting renal parenchymal disease. 2. Mild right hydronephrosis. RPTAT: QQ Physician Tessa Date Time Electronically viewed and signed by Physician Tessa on 07/17/2017 09:18 /
--- NOTE | 2017-07-17 12:35 | CONS ---
Date/Time of Note Date/Time of Note DATE: 07/17/17 TIME: 12:17 Assessment/Plan Assessment/Plan Additional Assessment/Plan 1. Acute Kindey injury vs MIREYA on CKD due to Hemodynamics from Hypotension and CHF - sp IVF - Cr to WNL-1.16 - Uric acid WNL- 7.8 - CK total- WNL - Urine Random Creatinine/cr ration- 27.70 / 0.50 - Urine Total Protein-elevated 14.0 - Urine Na Urine - 57 - urine eosinophils- 0 -Renal US- Bilateral echogenic kidneys, suggesting renal parenchymal disease. Mild right hydronephrosis.- Urology recommended 2. CHF exacerbation - CXR previosly showed mild failure, 3. chest pain- none at present 4, COPD 5. possible CKD from CHF- unknown creatinine and unknown stage 6. Former smoker- still reinforced no smoking Plan: -Continue IVF hydration -Hold diuretics -Avoid hypotension -pt received IVF since admission, Hodl IVF tonight - will follow up on CXR in Am- not available yet to decide if pt needs IVF vs resumption of diuretics, BNP =468 today thanks for consultation, will follow up Dw Dr Yanet Mabry Consultation Date/Type/Reason Admit Date/Time Jul 15, 2017 at 23:06 Initial Consult Date 07/16/17 Type of Consultation: NEPHROLOGY Referring Provider: MERVAT FERRO MD 24 HR Interval Summary Constitutional: improved, requiring IVF Exam/Review of Systems Vital Signs Vitals Vital Signs Date Time Temp Pulse Resp B/P Pulse Ox O2 Delivery O2 Flow Rate FiO2 07/17/17 11:52 97.9 82 20 122/47 92 07/17/17 04:18 2.0 07/16/17 20:00 Nasal Cannula Intake and Output 07/16/17 07/16/17 07/17/17 15:00 23:00 07:00 Intake Total 600 ml 600 ml Output Total 900 ml Balance 600 ml -300 ml Exam Constitutional: alert, oriented, well developed Respiratory: clear to auscultation, normal air movement Cardiovascular: other (afib.), regular rate and rhythm Gastrointestinal: non-tender, soft Musculoskeletal: nl extremities to inspection Extremities: normal pulses Neurological: nl mental status, nl speech Results Result Diagram: 07/17/17 0726 07/17/17 0726 Results 24 hrs Laboratory Tests Test 07/16/17 12:56 07/16/17 17:54 07/16/17 21:07 07/17/17 00:04 Bedside Glucose 67 L 101 83 81 Test 07/17/17 01:20 07/17/17 07:26 07/17/17 07:27 07/17/17 08:34 Urine Eosinophils % 0.0 Urine Random Creatinine 27.70 Urine Random Sodium 57 Urine Protein/Creatinine Ratio 0.50 Urine Total Protein 14.0 H White Blood Count 6.6 # Red Blood Count 5.19 Hemoglobin 10.7 L Hematocrit 36.2 L Mean Corpuscular Volume 69.7 L Mean Corpuscular Hemoglobin 20.6 L Mean Corpuscular Hemoglobin Concent 29.6 L Red Cell Distribution Width 15.7 H Platelet Count 206 Mean Platelet Volume 9.3 Neutrophils % 61.3 Lymphocytes % 27.3 Monocytes % 6.7 Eosinophils % 3.5 Basophils % 0.6 Nucleated Red Blood Cells % 0.0 Neutrophils # (Manual) 4 Lymphocytes # 1.8 Monocytes # 0.4 Eosinophils # 0.2 Basophils # 0.0 Nucleated Red Blood Cells # 0.0 Sodium Level 143 Potassium Level 4.7 Chloride Level 107 Carbon Dioxide Level 23 Anion Gap 18 H Blood Urea Nitrogen 23 H Creatinine 1.16 Glucose Level 76 # Calcium Level 9.0 B-Type Natriuretic Peptide 468 H Uric Acid 7.8 Creatine Kinase 27 Bedside Glucose 87 Medications Medications Current Medications Lisinopril (Zestril) 20 mg DAILY PO Last administered on 07/17/17 08:35; Admin Dose 20 MG; Start 07/16/17 at 09:00 Terazosin HCl (Hytrin) 10 mg HS PO Last administered on 07/16/17 21:04; Admin Dose 10 MG; Start 07/16/17 at 21:00 Trazodone HCl (Desyrel) 50 mg QHS PO Last administered on 07/16/17 21:04; Admin Dose 50 MG; Start 07/16/17 at 21:00 Salmeterol Xinafoate/ Fluticasone (Advair 100/50 Diskus) 1 inh BID INH Last administered on 07/17/17 08:35; Admin Dose 1 INH; Start 07/16/17 at 09:00 Atorvastatin Calcium (Lipitor) 20 mg HS PO Last administered on 07/16/17 21:04 ; Admin Dose 20 MG; Start 07/16/17 at 21:00 Ondansetron HCl (Zofran Inj) 4 mg Q4H PRN IV NAUSEA AND/OR VOMITING; Start at 01:00 Nitroglycerin (Nitroglycerin (Sl Tab) 0.4 Mg) 1 tab Q5M PRN SL ANGINA; Start at 01:00 Morphine Sulfate (morphine) 2 mg Q4H PRN IV PAIN; Start 07/16/17 at 01:00 Acetaminophen (Tylenol Tab) 650 mg Q6H PRN PO PAIN AND OR ELEVATED TEMP; Start 07/16/17 at 01:00 Aspirin (Aspirin) 81 mg DAILY PO Last administered on 07/17/17 08:35; Admin Dose 81 MG; Start 07/16/17 at 09:00 Diagnostic Test (Pha) (Accu-Chek) 1 ea 02 XX ; Start 07/16/17 at 02:00 Insulin Glargine (Lantus) 15 unit HS SC ; Start 07/16/17 at 21:00 Heparin Sodium (Porcine) (Heparin (5000 Units/0.5 ml)) 5,000 unit BID SC Last administered on 07/17/17 08:39; Admin Dose 5,000 UNIT; Start 07/16/17 at 02:00 Miscellaneous Information 1 ea NOTE XX ; Start 07/16/17 at 01:30 Glucose (Glutose) 15 gm Q15M PRN PO DECREASED GLUCOSE; Start 07/16/17 at 01:30 Glucose (Glutose) 22.5 gm Q15M PRN PO DECREASED GLUCOSE; Start 07/16/17 at 01: 30 Dextrose (D50w Syringe) 25 ml Q15M PRN IV DECREASED GLUCOSE; Start 07/16/17 at 01:30 Dextrose (D50w Syringe) 50 ml Q15M PRN IV DECREASED GLUCOSE; Start 07/16/17 at 01:30 Glucagon (Glucagen) 1 mg Q15M PRN IM DECREASED GLUCOSE; Start 07/16/17 at 01:30 Glucose (Glutose) 15 gm Q15M PRN BUCCAL DECREASED GLUCOSE; Start 07/16/17 at 01 :30 Albuterol (Ventolin Hfa) 2 puff Q4H PRN INH WHEEZING, SOB; Start 07/16/17 at 02 :00 RACHEL BERMAN Jul 17, 2017 12:32
--- NOTE | 2017-07-17 13:14 | CONS ---
DATE OF ADMISSION: 07/15/2017 DATE OF CONSULTATION: 07/17/2017 REASON FOR CONSULTATION: Chest pain. HISTORY OF PRESENT ILLNESS: The patient is an 82-year-old gentleman who was apparently in his usual state of health. He was with his son, sitting in the living room when he began to complain of chest pain. He said that he wanted to go to his room. His son stood him up and he slumped over. He did not lose consciousness according to his son and fell to the floor. EMS was called as he was unable to stand up. He did have a similar episode 2 days prior to this admission and in addition was admitted in [place], [place] for a similar episode approximately 3 months ago. Currently, he is at baseline and denies any chest pain since that event. While admitted at [place], [place], he reportedly underwent nuclear stress testing, which was reportedly unremarkable. Importantly on admission to the emergency department, he was noted to be hypotensive with a blood pressure of 73/37 and a low grade temperature. PAST MEDICAL HISTORY: 1. Diabetes. 2. Hypertension. 3. COPD. SOCIAL HISTORY: Former smoker. PHYSICAL EXAMINATION: GENERAL APPEARANCE: He is currently in no distress. VITAL SIGNS: Temperature 98.4, pulse 64, blood pressure 119/43. NECK: No jugular venous distension. LUNGS: Clear to auscultation bilaterally CARDIAC: Reveals a 3/6 systolic murmur at the base. ABDOMEN: Soft, nontender, nondistended. EXTREMITIES: Reveal no clubbing, cyanosis or edema. LABORATORY RESULTS: Sodium 143, potassium 4.7, BUN 23, creatinine 1.16, which is improved from creatinine on admission of 1.74. Troponin negative x2. White count 6.6, hematocrit 36.2, platelet count 206. INR 1.0. CURRENT MEDICATIONS: 1. Terazosin. 2. Trazadone. 3. Lipitor. 4. Insulin. 5. Lisinopril. 6. Aspirin. Was on diuretic at home, but that has been held. EKG shows sinus rhythm with ST depression in the inferior leads, stable. At this time the reason for chest pain and loss of consciousness may be due to hypotension, secondary to dehydration as he seems to have improved and his initial blood pressure was quite low with renal insufficiency. His echocardiogram was reviewed and shows a normal ejection fraction. Unfortunately, evaluation on echocardiogram was limited due to poor windows and I as unable to adequately assess the aortic valve. He does have at least moderate aortic stenosis and if more severe than this, this may be contributing too his symptoms significantly. Importantly, he had a recent stress test in [place], which was reportedly negative. If possible, please obtain these records. At this time, I agree with continued holding of his Lasix. I would also consider decreasing his terazosin alpha blockade, which may be contributing to hypotension. I would repeat a full echocardiogram as an outpatient when the patient is more ambulatory. Dictated By: Dipesh Khoury MD /caitlyn/philippe /Document#: [id number]
--- NOTE | 2017-07-17 15:28 | PN ---
Date/Time of Note Date/Time of Note DATE: 07/17/17 TIME: 15:24 Assessment/Plan VTE Prophylaxis VTE Prophylaxis Intervention: SCD's Lines/Catheters IV Catheter Type (from Nrsg): Saline Lock Assessment/Plan Chief Complaint/Hosp Course Assessment and plan 1. Chest pain. EKG noted with ST depression. Continue telemetry monitoring. Serial troponin markers were negative. EF difficult to determine per echocardiogram report. Continue with cardiology recommendations. 2. Hypotension. Improved status post IV hydration 3. CHF exacerbation. Diuresis on hold per block tester 4. History of COPD. Off O2. Continue bronchodilators as needed. Stable at present. 5. Acute kidney injury. Improved at present. 6. Diabetes. Continue insulin regimen 8. History of dyslipidemia. Continue on statin Disposition and plan: Continue with cardiovascular medications. Reported per son patient with some weakness. Get physical therapy. Anticipate discharge when medically stable and cleared by consultants Discussed plan of care with Dr. Orlando Problems: Subjective 24 Hr Interval Summary Free Text/Dictation Denies any chest pain at this time. Reports shortness of breath. Family at bedside. Exam/Review of Systems Vital Signs Vitals Vital Signs Date Time Temp Pulse Resp B/P Pulse Ox O2 Delivery O2 Flow Rate FiO2 07/17/17 12:30 82 07/17/17 11:52 97.9 20 122/47 92 07/17/17 04:18 2.0 07/16/17 20:00 Nasal Cannula Intake and Output 07/16/17 07/16/17 07/17/17 15:00 23:00 07:00 Intake Total 600 ml 600 ml Output Total 900 ml Balance 600 ml -300 ml Exam Constitutional: alert, oriented Psych: no complaints Head: normocephalic Eyes: nl conjunctiva Neck: supple Respiratory: clear to auscultation, normal air movement Cardiovascular: regular rate and rhythm Gastrointestinal: non-tender, soft Musculoskeletal: nl extremities to inspection Extremities: normal pulses 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, nl mental status, nl speech Skin: nl turgor Results Result Diagram: 07/17/17 0707/17/17 0726 Results 24 hrs Laboratory Tests Test 07/16/17 17:54 07/16/17 21:07 07/17/17 00:04 07/17/17 01:20 Bedside Glucose 101 83 81 Urine Eosinophils % 0.0 Urine Random Creatinine 27.70 Urine Random Sodium 57 Urine Protein/Creatinine Ratio 0.50 Urine Total Protein 14.0 H Test 07/17/17 07:26 07/17/17 07:27 07/17/17 08:34 07/17/17 12:18 White Blood Count 6.6 # Red Blood Count 5.19 Hemoglobin 10.7 L Hematocrit 36.2 L Mean Corpuscular Volume 69.7 L Mean Corpuscular Hemoglobin 20.6 L Mean Corpuscular Hemoglobin Concent 29.6 L Red Cell Distribution Width 15.7 H Platelet Count 206 Mean Platelet Volume 9.3 Neutrophils % 61.3 Lymphocytes % 27.3 Monocytes % 6.7 Eosinophils % 3.5 Basophils % 0.6 Nucleated Red Blood Cells % 0.0 Neutrophils # (Manual) 4 Lymphocytes # 1.8 Monocytes # 0.4 Eosinophils # 0.2 Basophils # 0.0 Nucleated Red Blood Cells # 0.0 Sodium Level 143 Potassium Level 4.7 Chloride Level 107 Carbon Dioxide Level 23 Anion Gap 18 H Blood Urea Nitrogen 23 H Creatinine 1.16 Glucose Level 76 # Calcium Level 9.0 B-Type Natriuretic Peptide 468 H Uric Acid 7.8 Creatine Kinase 27 Bedside Glucose 87 101 Medications Medications Current Medications Lisinopril (Zestril) 20 mg DAILY PO Last administered on 07/17/17 08:35; Admin Dose 20 MG; Start 07/16/17 at 09:00 Terazosin HCl (Hytrin) 10 mg HS PO Last administered on 07/16/17 21:04; Admin Dose 10 MG; Start 07/16/17 at 21:00 Trazodone HCl (Desyrel) 50 mg QHS PO Last administered on 07/16/17 21:04; Admin Dose 50 MG; Start 07/16/17 at 21:00 Salmeterol Xinafoate/ Fluticasone (Advair 100/50 Diskus) 1 inh BID INH Last administered on 07/17/17 08:35; Admin Dose 1 INH; Start 07/16/17 at 09:00 Atorvastatin Calcium (Lipitor) 20 mg HS PO Last administered on 07/16/17 21:04 ; Admin Dose 20 MG; Start 07/16/17 at 21:00 Ondansetron HCl (Zofran Inj) 4 mg Q4H PRN IV NAUSEA AND/OR VOMITING; Start at 01:00 Nitroglycerin (Nitroglycerin (Sl Tab) 0.4 Mg) 1 tab Q5M PRN SL ANGINA; Start at 01:00 Morphine Sulfate (morphine) 2 mg Q4H PRN IV PAIN; Start 07/16/17 at 01:00 Acetaminophen (Tylenol Tab) 650 mg Q6H PRN PO PAIN AND OR ELEVATED TEMP; Start 07/16/17 at 01:00 Aspirin (Aspirin) 81 mg DAILY PO Last administered on 07/17/17 08:35; Admin Dose 81 MG; Start 07/16/17 at 09:00 Diagnostic Test (Pha) (Accu-Chek) 1 ea 02 XX ; Start 07/16/17 at 02:00 Insulin Glargine (Lantus) 15 unit HS SC ; Start 07/16/17 at 21:00 Heparin Sodium (Porcine) (Heparin (5000 Units/0.5 ml)) 5,000 unit BID SC Last administered on 07/17/17 08:39; Admin Dose 5,000 UNIT; Start 07/16/17 at 02:00 Miscellaneous Information 1 ea NOTE XX ; Start 07/16/17 at 01:30 Glucose (Glutose) 15 gm Q15M PRN PO DECREASED GLUCOSE; Start 07/16/17 at 01:30 Glucose (Glutose) 22.5 gm Q15M PRN PO DECREASED GLUCOSE; Start 07/16/17 at 01: 30 Dextrose (D50w Syringe) 25 ml Q15M PRN IV DECREASED GLUCOSE; Start 07/16/17 at 01:30 Dextrose (D50w Syringe) 50 ml Q15M PRN IV DECREASED GLUCOSE; Start 07/16/17 at 01:30 Glucagon (Glucagen) 1 mg Q15M PRN IM DECREASED GLUCOSE; Start 07/16/17 at 01:30 Glucose (Glutose) 15 gm Q15M PRN BUCCAL DECREASED GLUCOSE; Start 07/16/17 at 01 :30 Albuterol (Ventolin Hfa) 2 puff Q4H PRN INH WHEEZING, SOB; Start 07/16/17 at 02 :00 WOO HECK Jul 17, 2017 15:28
--- NOTE | 2017-07-17 17:02 | RADRPT ---
PROCEDURE: Chest radiograph CLINICAL INDICATION: Congestive heart failure and shortness of breath. COMPARISON: Radiograph 07/15/2017. TECHNIQUE: Single portable frontal view. FINDINGS: Hyperinflation with flattened diaphragms and emphysema. Mild pulmonary vascular congestion similar to 07/15/2017. Biapical pleural scar. The heart is not enlarged. Aortic atherosclerosis. No suspicious bone lesion. IMPRESSION: Overall, no change in aeration of the lungs since 07/15/2017. 1. Chronic obstructive pulmonary disease. 2. Mild pulmonary vascular congestion. RPTAT: PP Physician Lake Date Time Electronically viewed and signed by Physician Lake on 07/17/2017 17:01 LG/
[2017-07-17] MEDS: INSULIN GLARGINE [LANtus] 3 ML PEN SC SCH (21:00)
[2017-07-17] MEDS: traZODone 50 MG TAB PO SCH (21:23)
[2017-07-17] MEDS: ATORVASTATIN 20 MG TAB PO SCH (21:23)
[2017-07-17] MEDS: TERAZOSIN 5 MG CAP PO SCH (21:28)
[2017-07-18] VITALS (9 sets, daily range): BP systolic 127–155; BP diastolic 58–72; PULSE 70–100; RESP 18–20
[2017-07-18] MEDS: ACCU-CHEK XX SCH (02:00)
--- NOTE | 2017-07-18 07:30 | CONS ---
Date/Time of Note Date/Time of Note DATE: 07/18/17 TIME: 07:28 Assessment/Plan Assessment/Plan Chief Complaint/Hosp Course 1) moderate 2) Preserved LV function 3) CRI 4) CHF diastolic chronic 5) S/p Hypotension Problems: Additional Assessment/Plan 1) off beta viji due to hypotension 2) off REGINA due to CRI 3) no change in cardiac mgt Consultation Date/Type/Reason Admit Date/Time Jul 15, 2017 at 23:06 Initial Consult Date 07/16/17 Type of Consultation: cv Referring Provider: MERVAT FERRO MD 24 HR Interval Summary Free Text/Dictation comfortable, no chest pain, no sob Detailed Summary Respiratory: no complaints Cardiovascular: no complaints Gastrointestinal: no complaints Musculoskeletal: no complaints Skin: no complaints Neurologic: no complaints Exam/Review of Systems Vital Signs Vitals Vital Signs Date Time Temp Pulse Resp B/P Pulse Ox O2 Delivery O2 Flow Rate FiO2 07/18/17 05:32 2.0 07/18/17 04:34 98.6 81 19 127/58 96 07/17/17 15:21 Nasal Cannula Intake and Output 07/17/17 07/17/17 07/18/17 15:00 23:00 07:00 Intake Total 360 ml 320 ml Output Total 600 ml Balance 360 ml -280 ml Exam Constitutional: frail Head: atraumatic, normocephalic Neck: supple Respiratory: diminished breath sounds Cardiovascular: regular rate and rhythm Gastrointestinal: soft Musculoskeletal: nl extremities to inspection Extremities: normal pulses Results Result Diagram: 07/17/17 0726 07/17/17 0726 Results 24 hrs Laboratory Tests Test 07/17/17 08:34 07/17/17 12:18 07/17/17 17:23 07/17/17 21:14 Bedside Glucose 87 101 101 111 Medications Medications Current Medications Lisinopril (Zestril) 20 mg DAILY PO Last administered on 07/17/17 08:35; Admin Dose 20 MG; Start 07/16/17 at 09:00 Terazosin HCl (Hytrin) 10 mg HS PO Last administered on 07/17/17 21:28; Admin Dose 10 MG; Start 07/16/17 at 21:00 Trazodone HCl (Desyrel) 50 mg QHS PO Last administered on 07/17/17 21:23; Admin Dose 50 MG; Start 07/16/17 at 21:00 Salmeterol Xinafoate/ Fluticasone (Advair 100/50 Diskus) 1 inh BID INH Last administered on 07/17/17 21:20; Admin Dose 1 INH; Start 07/16/17 at 09:00 Atorvastatin Calcium (Lipitor) 20 mg HS PO Last administered on 07/17/17 21:23 ; Admin Dose 20 MG; Start 07/16/17 at 21:00 Ondansetron HCl (Zofran Inj) 4 mg Q4H PRN IV NAUSEA AND/OR VOMITING; Start at 01:00 Nitroglycerin (Nitroglycerin (Sl Tab) 0.4 Mg) 1 tab Q5M PRN SL ANGINA; Start at 01:00 Morphine Sulfate (morphine) 2 mg Q4H PRN IV PAIN; Start 07/16/17 at 01:00 Acetaminophen (Tylenol Tab) 650 mg Q6H PRN PO PAIN AND OR ELEVATED TEMP; Start 07/16/17 at 01:00 Aspirin (Aspirin) 81 mg DAILY PO Last administered on 07/17/17 08:35; Admin Dose 81 MG; Start 07/16/17 at 09:00 Diagnostic Test (Pha) (Accu-Chek) 1 ea 02 XX ; Start 07/16/17 at 02:00 Insulin Glargine (Lantus) 15 unit HS SC ; Start 07/16/17 at 21:00 Heparin Sodium (Porcine) (Heparin (5000 Units/0.5 ml)) 5,000 unit BID SC Last administered on 07/17/17 21:22; Admin Dose 5,000 UNIT; Start 07/16/17 at 02:00 Miscellaneous Information 1 ea NOTE XX ; Start 07/16/17 at 01:30 Glucose (Glutose) 15 gm Q15M PRN PO DECREASED GLUCOSE; Start 07/16/17 at 01:30 Glucose (Glutose) 22.5 gm Q15M PRN PO DECREASED GLUCOSE; Start 07/16/17 at 01: 30 Dextrose (D50w Syringe) 25 ml Q15M PRN IV DECREASED GLUCOSE; Start 07/16/17 at 01:30 Dextrose (D50w Syringe) 50 ml Q15M PRN IV DECREASED GLUCOSE; Start 07/16/17 at 01:30 Glucagon (Glucagen) 1 mg Q15M PRN IM DECREASED GLUCOSE; Start 07/16/17 at 01:30 Glucose (Glutose) 15 gm Q15M PRN BUCCAL DECREASED GLUCOSE; Start 07/16/17 at 01 :30 Albuterol (Ventolin Hfa) 2 puff Q4H PRN INH WHEEZING, SOB; Start 07/16/17 at 02 :00 MARCIN VIRK MD Jul 18, 2017 07:30
[2017-07-18] MEDS: INSULIN ASPART [NOVOLOG] 3 ML PEN SC SCH ×2 (08:00→12:00)
[2017-07-18 08:53] LABS: BASOPHILS % 0.6 % (0.0-2.0); EOSINOPHILS # 0.2 10^3/ul (0.0-0.5); EOSINOPHILS % 3.7 % (0.0-7.0); HEMATOCRIT 36.9 % (42.0-52.0); HEMOGLOBIN 11.1 g/dl (14.0-18.0); LYMPHOCYTES # 1.8 10^3/ul (0.8-2.9); LYMPHOCYTES % 27.9 % (15.0-51.0); MEAN CORPUSCULAR HEMOGLOBIN 20.7 pg (29.0-33.0); MEAN CORPUSCULAR HGB CONC 30.1 g/dl (32.0-37.0); MEAN CORPUSCULAR VOLUME 68.7 fl (82.0-101.0); MEAN PLATELET VOLUME 9.3 fl (7.4-10.4); MONOCYTE # 0.5 10^3/ul (0.3-0.9); MONOCYTES % 8.1 % (0.0-11.0); NEUTROPHILS % 59.2 % (39.0-77.0); PLATELET COUNT 223 10^3/UL (140-415); RED BLOOD COUNT 5.37 10^6/ul (4.70-6.10); RED CELL DISTRIBUTION WIDTH 15.4 % (11.5-14.5); WHITE BLOOD COUNT 6.3 10^3/ul (4.8-10.8)
[2017-07-18 09:19] LABS: CALCIUM 9.1 mg/dl (8.4-10.2); CREATININE 1.13 mg/dl (0.61-1.24); POTASSIUM 4.2 mmol/L (3.5-5.1)
[2017-07-18] MEDS: ASPIRIN 81 MG TAB PO SCH (09:33)
[2017-07-18] MEDS: SALMETEROL/FLUTICASONE 100/50 INHA INH SCH (09:34)
[2017-07-18] MEDS: LISINOPRIL 20 MG TAB PO SCH (09:34)
[2017-07-18] MEDS: HEPARIN 5,000 UNIT/0.5 ML VIAL SC SCH (09:40)
--- NOTE | 2017-07-18 14:56 | DS ---
Date/Time of Note Date/Time of Note DATE: 07/18/17 TIME: 14:56 Discharge Summary Admission/Discharge Info Admit Date/Time Jul 15, 2017 at 23:06 Discharge Date/Time Discharge Diagnosis acute kidney injury Patient Condition: Stable Consults cardiology, nephrology Procedures 8.19 TTE Conclusions 1. Normal left ventricular cavity size. Mild concentric left ventricular hypertrophy. The left ventricle is only seen in the subcostal images, difficult to determine EF. 2. Moderate aortic stenosis by Doppler analysis from the off-axis subcostal images. Aortic cusps appear at least moderately calcified. Mild aortic regurgitation. ALEXA IMPRESSION: 1. Bilateral echogenic kidneys, suggesting renal parenchymal disease. 2. Mild right hydronephrosis. Cr 1.7s on admission-->1.1s on discharge Hx of Present Illness This is an 82-year-old male with history of hypertension, diabetes, COPD and BPH who presented to the emergency department complaining of chest pain, lightheadedness and shortness of breath. Patient was sitting at home when he had sudden onset of midsternal chest pain, which is pressure-like with radiation to his right arm. When the patient got up, he felt weak and lightheaded and fell to the floor. No loss of consciousness. Denied palpitations, fever, chills, nausea, vomiting or diaphoresis. He did report that over the past 2-3 days, he has been feeling weak. When he presented to the ER patient was hypotensive with a blood pressure of 73/ 37, febrile with a temperature of 100.3. EKG shows ST depression. Labs shows that first troponin is negative, hemoglobin 11.1 with MCV of 69, creatinine 1.74 and glucose 236 otherwise the rest of CBC and BMP are within normal limits. Chest x-ray shows mild failure. He received aspirin and insulin while in the ER. . Hospital Course Pt admitted for chest pain, ruled out for ACS with serial troponins. TTE nondiagnostic but pt seen by cardiology service and no further work up was advised. Pt with MIREYA on admission, resolved with IVFs. Etiology unclear as pt does not appear to have been on diuretics prior to admission. Home Meds Reported Medications Lovastatin* (Lovastatin*) 20 Mg Tablet, 20 MG PO HS, TAB 07/15/17 Albuterol Sulfate* (Proair HFA*) 8.5 Gm Hfa.aer.ad, 2 PUFF INH Q4H Y for WHEEZING AND SOB, #1 INHALER 07/15/17 Terazosin Hcl* (Terazosin Hcl*) 10 Mg Capsule, 10 MG PO HS, CAP 07/15/17 Glipizide* (Glipizide*) 5 Mg Tablet, 5 MG PO AC BREAKFAST, TAB 07/15/17 Trazodone Hcl* (Trazodone Hcl*) 50 Mg Tablet, 50 MG PO QHS, #30 TAB 07/15/17 Lisinopril* (Lisinopril*) 20 Mg Tablet, 20 MG PO DAILY, #30 TAB 07/15/17 Budesonide-Formoterol Fumarate* (Symbicort*) 80-4.5 Inha, 2 PUFFS INHALATION BID , #1 EACH 07/15/17 Follow-up Plan PCP, renal Primary Care Provider Not On Staff Doctor Time spent on discharge: > 30 minutes Pending Labs Laboratory Tests Test 07/17/17 17:23 07/17/17 21:14 07/18/17 07:47 07/18/17 08:18 Bedside Glucose 101mg/dL (70-220) 111mg/dL (70-220) 103mg/dL (70-220) White Blood Count 6.310^3/ul (4.8-10.8) Red Blood Count 5.3710^6/ul (4.70-6.10) Hemoglobin 11.1g/dl (14.0-18.0) Hematocrit 36.9% (42.0-52.0) Mean Corpuscular Volume 68.7fl (82.0-101.0) Mean Corpuscular Hemoglobin 20.7pg (29.0-33.0) Mean Corpuscular Hemoglobin Concent 30.1g/dl (32.0-37.0) Red Cell Distribution Width 15.4% (11.5-14.5) Platelet Count 65912^3/UL (140-415) Mean Platelet Volume 9.3fl (7.4-10.4) Neutrophils % 59.2% (39.0-77.0) Lymphocytes % 27.9% (15.0-51.0) Monocytes % 8.1% (0.0-11.0) Eosinophils % 3.7% (0.0-7.0) Basophils % 0.6% (0.0-2.0) Nucleated Red Blood Cells % 0.0/100WBC (0.0-0.0) Neutrophils # (Manual) 410^3/ul (1.7-7.5) Lymphocytes # 1.810^3/ul (0.8-2.9) Monocytes # 0.510^3/ul (0.3-0.9) Eosinophils # 0.210^3/ul (0.0-0.5) Basophils # 0.010^3/ul (0.0-0.1) Nucleated Red Blood Cells # 0.010^3/ul (0.0-0.0) Sodium Level 139mmol/L (135-144) Potassium Level 4.2mmol/L (3.5-5.1) Chloride Level 106mmol/L (97-110) Carbon Dioxide Level 23mmol/L (21-31) Anion Gap 14 (8-16) Blood Urea Nitrogen 20mg/dl (7-20) Creatinine 1.13mg/dl (0.61-1.24) Glucose Level 97mg/dl (70-220) Calcium Level 9.1mg/dl (8.4-10.2) Test 07/18/17 12:13 Bedside Glucose 99mg/dL (70-220) CRISELDA PACHECO MD Jul 18, 2017 14:56
--- NOTE | 2017-07-18 15:11 | CONS ---
Date/Time of Note Date/Time of Note DATE: 07/18/17 TIME: 15:08 Assessment/Plan Assessment/Plan Chief Complaint/Hosp Course 82-year-old male with history of hypertension, diabetes, COPD and BPH who presented to the emergency department complaining of chest pain, lightheadedness and shortness of breath. Patient was sitting at home when he had sudden onset of midsternal chest pain, which is pressure-like with radiation to his right arm. When the patient got up, he felt weak and lightheaded and fell to the floor. No loss of consciousness. Denied palpitations, fever, chills, nausea, vomiting or diaphoresis. He did report that over the past 2-3 days, he has been feeling weak. When he presented to the ER patient was hypotensive with a blood pressure of 73/ 37, febrile with a temperature of 100.3. EKG shows ST depression. Labs shows that first troponin is negative, hemoglobin 11.1 with MCV of 69, creatinine 1.74 and glucose 236 otherwise the rest of CBC and BMP are within normal limits. Chest x-ray shows mild failure. pt had a creatioine 1.74 on admission ,diuretics has been hold, gentle hydration given, still elevated Cr, renal has been consulted for it Problems: Additional Assessment/Plan 1. Acute Kindey injury vs MIREYA on CKD due to Hemodynamics from Hypotension and CHF Cr normal with IVF hydration -Renal US- Bilateral echogenic kidneys, suggesting renal parenchymal disease. Mild right hydronephrosis.- Urology recommended 2. CHF exacerbation 3. chest pain- none at present 4, COPD 5. possible CKD from CHF- unknown creatinine and unknown stage 6. Former smoker- still reinforced no smoking Plan: continue Lisinopril on discharge Follow up gretel barr in clinic in 1-2 week after discharge will follow up - will follow up on CXR in [place]- not available yet to decide if pt needs IVF vs resumption of diuretics, BNP =[phone] today thanks for consultation, will follow up [facility] Consultation Date/Type/Reason Admit Date/Time Jul 15, 2017 at 23:06 Initial Consult Date 07/16/17 Type of Consultation: NEPHROLOGY Referring Provider: MERVAT FERRO MD 24 HR Interval Summary Free Text/Dictation Cr normal BP stable Exam/Review of Systems Vital Signs Vitals Vital Signs Date Time Temp Pulse Resp B/P Pulse Ox O2 Delivery O2 Flow Rate FiO2 8/21/17 12:18 73 07/18/17 11:57 98.7 20 155/71 93 07/18/17 05:32 2.0 07/17/17 15:21 Nasal Cannula Intake and Output 07/17/17 07/17/17 07/18/17 15:00 23:00 07:00 Intake Total 360 ml 320 ml Output Total 600 ml Balance 360 ml -280 ml Exam Constitutional: weak, tired, sleepy Head: atraumatic, normocephalic Eyes: EOMI, PERRL Respiratory: clear to auscultation, normal air movement Cardiovascular: nl pulses, regular rate and rhythm Gastrointestinal: non-tender, soft Extremities: normal pulses Results Result Diagram: 07/18/17 0747 07/18/17 0747 Results 24 hrs Laboratory Tests Test 07/17/17 17:23 07/17/17 21:14 07/18/17 07:47 07/18/17 08:18 Bedside Glucose 101 111 103 White Blood Count 6.3 Red Blood Count 5.37 Hemoglobin 11.1 L Hematocrit 36.9 L Mean Corpuscular Volume 68.7 L Mean Corpuscular Hemoglobin 20.7 L Mean Corpuscular Hemoglobin Concent 30.1 L Red Cell Distribution Width 15.4 H Platelet Count 223 Mean Platelet Volume 9.3 Neutrophils % 59.2 Lymphocytes % 27.9 Monocytes % 8.1 Eosinophils % 3.7 Basophils % 0.6 Nucleated Red Blood Cells % 0.0 Neutrophils # (Manual) 4 Lymphocytes # 1.8 Monocytes # 0.5 Eosinophils # 0.2 Basophils # 0.0 Nucleated Red Blood Cells # 0.0 Sodium Level 139 Potassium Level 4.2 Chloride Level 106 Carbon Dioxide Level 23 Anion Gap 14 Blood Urea Nitrogen 20 Creatinine 1.13 Glucose Level 97 Calcium Level 9.1 Test 07/18/17 12:13 Bedside Glucose 99 Medications Medications Current Medications Lisinopril (Zestril) 20 mg DAILY PO Last administered on 07/18/17 09:34; Admin Dose 20 MG; Start 07/16/17 at 09:00 Terazosin HCl (Hytrin) 10 mg HS PO Last administered on 07/17/17 21:28; Admin Dose 10 MG; Start 07/16/17 at 21:00 Trazodone HCl (Desyrel) 50 mg QHS PO Last administered on 07/17/17 21:23; Admin Dose 50 MG; Start 07/16/17 at 21:00 Salmeterol Xinafoate/ Fluticasone (Advair 100/50 Diskus) 1 inh BID INH Last administered on 07/18/17 09:34; Admin Dose 1 INH; Start 07/16/17 at 09:00 Atorvastatin Calcium (Lipitor) 20 mg HS PO Last administered on 07/17/17 21:23 ; Admin Dose 20 MG; Start 07/16/17 at 21:00 Ondansetron HCl (Zofran Inj) 4 mg Q4H PRN IV NAUSEA AND/OR VOMITING; Start at 01:00 Nitroglycerin (Nitroglycerin (Sl Tab) 0.4 Mg) 1 tab Q5M PRN SL ANGINA; Start at 01:00 Morphine Sulfate (morphine) 2 mg Q4H PRN IV PAIN; Start 07/16/17 at 01:00 Acetaminophen (Tylenol Tab) 650 mg Q6H PRN PO PAIN AND OR ELEVATED TEMP; Start 07/16/17 at 01:00 Aspirin (Aspirin) 81 mg DAILY PO Last administered on 07/18/17 09:33; Admin Dose 81 MG; Start 07/16/17 at 09:00 Diagnostic Test (Pha) (Accu-Chek) 1 ea 02 XX ; Start 07/16/17 at 02:00 Insulin Glargine (Lantus) 15 unit HS SC ; Start 07/16/17 at 21:00 Heparin Sodium (Porcine) (Heparin (5000 Units/0.5 ml)) 5,000 unit BID SC Last administered on 07/18/17 09:40; Admin Dose 5,000 UNIT; Start 07/16/17 at 02:00 Miscellaneous Information 1 ea NOTE XX ; Start 07/16/17 at 01:30 Glucose (Glutose) 15 gm Q15M PRN PO DECREASED GLUCOSE; Start 07/16/17 at 01:30 Glucose (Glutose) 22.5 gm Q15M PRN PO DECREASED GLUCOSE; Start 07/16/17 at 01: 30 Dextrose (D50w Syringe) 25 ml Q15M PRN IV DECREASED GLUCOSE; Start 07/16/17 at 01:30 Dextrose (D50w Syringe) 50 ml Q15M PRN IV DECREASED GLUCOSE; Start 07/16/17 at 01:30 Glucagon (Glucagen) 1 mg Q15M PRN IM DECREASED GLUCOSE; Start 07/16/17 at 01:30 Glucose (Glutose) 15 gm Q15M PRN BUCCAL DECREASED GLUCOSE; Start 07/16/17 at 01 :30 Albuterol (Ventolin Hfa) 2 puff Q4H PRN INH WHEEZING, SOB; Start 07/16/17 at 02 :00 CHERRY MORALES MD Jul 18, 2017 15:11
--- NOTE | 2017-07-18 15:18 | PDOCDIS ---
Discharge Instructions DIAGNOSIS Discharge Diagnosis acute kidney injury CONDITION Patient Condition: Stable HOME CARE INSTRUCTIONS: Special Diet: Carb controlled FOLLOW UP/APPOINTMENTS Follow-up Plan Follow up with your regular doctor this week Call the office for the kidney doctor/Dr Mabry so you can follow up with him within the next 2 weeks Office Address [id number] [facility] [address] [place] [address] Office CRISELDA PACHECO MD Jul 18, 2017 15:18
== END 2017-07-18 16:45 | disposition home or self-care (01) | DRG 314 ==
LOC: FTE 20:46 → MS4 23:06
PROVIDERS: ADMIT Internal Medicine; ATTEND Internal Medicine
DX: I95.9 Hypotension, unspecified (principal); I50.33 Acute on chronic diastolic (congestive) heart failure; N17.9 Acute kidney failure, unspecified; I13.0 Hypertensive heart and chronic kidney disease with heart failure and stage 1 through stage 4 chronic kidney disease, or unspecified chronic kidney disease; E11.22 Type 2 diabetes mellitus with diabetic chronic kidney disease; J44.9 Chronic obstructive pulmonary disease, unspecified; R07.9 Chest pain, unspecified; N40.0 Benign prostatic hyperplasia without lower urinary tract symptoms; Z79.84 Long term (current) use of oral hypoglycemic drugs; N18.3 Chronic kidney disease, stage 3 (moderate); Z87.891 Personal history of nicotine dependence; E78.5 Hyperlipidemia, unspecified; E86.0 Dehydration
CPT/HCPCS: 36415; 71010; 76775; 80048; 80053; 80061; 81003; 82550; 82553; 82570; 82962; 83036; 83735; 83880; 84100; 84300; 84443; 84484; 84560; 85025; 85610; 85730; 89190; 93005; 93306; 97162; J1644; J1815; J7030; J7040

== ENCOUNTER 2018-11-19 00:06 | Inpatient (IN) | payer OTHER ==
[2018-11-19] VITALS (14 sets, daily range): BP systolic 102–132; BP diastolic 52–70; PULSE 84–117; RESP 14–26; Ht 165.1 cm; Wt 46.8 kg
[~2018-11-19] VITALS: Ht 165.1 cm; Wt 46.8 kg
[~2018-11-19 00:06] MED LIST: ALBU8.5H8 INH; GLIP5TAB13 PO; LISI-471 PO; LOVA20TA PO; SYMB80120 INHALATION; TERA10CA3 PO; TRAZ-111 PO
--- NOTE | 2018-11-19 00:22 | ERD ---
ER Documentation Chief Complaint Chief Complaint SOB WITH COUGH AND CONGESTION HPI 83-year-old male with a history of COPD, CHF, diabetes, and aortic stenosis brought in by son by private vehicle with complaints of shortness of breath. His symptoms started acutely while he was in the car with his son coming [place]. He denies any associated chest pain, dizziness, nausea, vomiting. He denies any recent URI symptoms. He is prescribed oxygen for home use but the patient does not like to use the home oxygen. \No recent fevers or chills. ROS All systems reviewed and are negative except as per history of present illness. Medications Home Meds Reported Medications Lovastatin* (Lovastatin*) 20 Mg Tablet, 20 MG PO HS, TAB 07/15/17 Albuterol Sulfate* (Proair HFA*) 8.5 Gm Hfa.aer.ad, 2 PUFF INH Q4H PRN for WHEEZING AND SOB, #1 INHALER 07/15/17 Terazosin Hcl* (Terazosin Hcl*) 10 Mg Capsule, 10 MG PO HS, CAP 07/15/17 Glipizide* (Glipizide*) 5 Mg Tablet, 5 MG PO AC BREAKFAST, TAB 07/15/17 Trazodone Hcl* (Trazodone Hcl*) 50 Mg Tablet, 50 MG PO QHS, #30 TAB 07/15/17 Lisinopril* (Lisinopril*) 20 Mg Tablet, 20 MG PO DAILY, #30 TAB 07/15/17 Budesonide-Formoterol Fumarate* (Symbicort*) 80-4.5 Inha, 2 PUFFS INHALATION BID, #1 EACH 07/15/17 Allergies Allergies: Coded Allergies: erythromycin base (Verified Allergy, Unknown, 07/15/17) PMhx/Soc History of Surgery: Yes (appendectomy, right eyelid surgery) Anesthesia Reaction: No Hx Neurological Disorder: No Hx Respiratory Disorders: Yes (COPD) Hx Cardiac Disorders: Yes (HTN, moderate aortic stenosis, CHF) Hx Psychiatric Problems: No Hx Miscellaneous Medical Probl: Yes (DM, dyslipidemia) Hx Alcohol Use: No Hx Substance Use: No Hx Tobacco Use: Yes FmHx Family History: No diabetes Physical Exam Vitals Vital Signs Date Temp Pulse Resp B/P (MAP) Pulse Ox O2 O2 Flow FiO2 Time Delivery Rate 12/23/18 105 18 124/62 97 Nasal 2.0 03:00 (82) Cannula 11/19/18 108 18 131/62 98 Nasal 2.0 02:00 (85) Cannula 11/19/18 2.0 01:45 11/19/18 106 18 96 Nasal 2.0 01:44 Cannula 11/19/18 105 24 136/68 96 Nasal 2.0 01:00 (90) Cannula 11/19/18 Nasal 2 00:35 Cannula 11/19/18 98.1 70 18 122/59 99 00:08 (80) Physical Exam Const: Mild respiratory distress, nontoxic. Thin frail appearing. Wet cough Head: Atraumatic Eyes: Normal Conjunctiva ENT: Clear nasal discharge noted. Normal External Ears, Nose and Mouth. Neck: Full range of motion. No meningismus. Resp: Diminished breath sounds bilaterally with mild end expiratory wheezing. No rales or rhonchi Cardio: Tachycardic with regular rhythm, high-pitched systolic murmur. 2+ distal pulses in all 4 extremities Abd: Soft, non tender, non distended. Normal bowel sounds Skin: No petechiae or rashes Back: No midline or flank tenderness Ext: No cyanosis, or edema. No calf tenderness Neur: Awake and alert, normal speech, no facial asymmetry, moving all extremities spontaneously Psych: Normal Mood and Affect Result Diagram: 11/19/18 0050 11/19/18 0050 Results 24 hrs Laboratory Tests Test 11/19/18 00:23 11/19/18 00:39 11/19/18 00:50 11/19/18 02:42 Blood Gas Blood venous Specimen Source Arterial Blood 11/19/2018 1:37 Date Drawn :04 AM Arterial Blood VENOUS LINE Gas Puncture Site Marco Test N/A Venous Blood pH 7.199 Venous Blood 77.0 mmHG pCO2 (Temp Corrected ) Venous Blood 35.8 mmHG pO2 (Temp Corrected ) Venous Blood 29.4 mmol/L HCO3 Venous Blood 47.1 mmHG Oxygen Saturation Venous Blood 0 mmol/L Base Excess Venous Blood 10.6 g/dl Total Hemoglobin Venous Blood 46.5 % Oxyhemoglobin Venous Blood 0.4 % Methemoglobin Carboxyhemoglob 0.8 % in Blood Gas 37.0 C Temperature Blood Gas NASAL CANNULA Modality FiO2 27.0 % Blood Gas EKCassi REESE MD Critical Value Read Back Blood Gas Notified Whom Blood Gas 11/19/2018 1:42 Notified Time :01 AM POC Venous 3.2 mmol/L 1.9 mmol/L Lactate White Blood 10.7 10^3/ul Count Red Blood Count 4.81 10^6/ul Hemoglobin 10.2 g/dl Hematocrit 35.1 % Mean 73.0 fl Corpuscular Volume Mean 21.2 pg Corpuscular Hemoglobin Mean 29.1 g/dl Corpuscular Hemoglobin Conc ent Red Cell 16.6 % Distribution Width Platelet Count 189 10^3/UL Mean Platelet 8.6 fl Volume Immature 0.700 % Granulocytes % Neutrophils % 86.7 % Lymphocytes % 6.9 % Monocytes % 5.5 % Eosinophils % 0.0 % Basophils % 0.2 % Nucleated Red 0.0 /100WBC Blood Cells % Immature 0.080 10^3/ul Granulocytes # Neutrophils # 9.3 10^3/ul Lymphocytes # 0.7 10^3/ul Monocytes # 0.6 10^3/ul Eosinophils # 0.0 10^3/ul Basophils # 0.0 10^3/ul Nucleated Red 0.0 10^3/ul Blood Cells # Prothrombin 14.1 Sec Time Prothrombin 1.1 Time Ratio INR 1.08 International Normalized Rati o Activated 30.6 Sec Partial Thrombo plast Time Sodium Level 144 mmol/L Potassium Level 4.9 mmol/L Chloride Level 97 mmol/L Carbon Dioxide 34 mmol/L Level Anion Gap 13 Blood Urea 40 mg/dl Nitrogen Creatinine 1.52 mg/dl Est Glomerular mL/min Filtrat Rate mL/min Glucose Level 220 mg/dl Calcium Level 9.4 mg/dl Troponin I 0.655 ng/ml B-Type 51178 PG/ML Natriuretic Peptide Current Medications Medications Dose Sig/Sean Start Time Status Last (Trade) Ordered Route PRN Stop Time Admin Dose Reason Admin Sodium 1,480 ml BOLUS OVER 2 11/19/18 DC 11/19/18 Chloride HOURS STAT 00:40 00:40 (NS) IV* 11/19/18 00:42 150 ml @ ONCE ONCE 11/19/18 DC 11/19/18 Levofloxacin/ 100 mls/hr IVPB 01:00 01:06 Dextrose 11/19/18 02:29 Albuterol 5 mg ONCE STAT 11/19/18 DC 11/19/18 (Proventil NEB 00:42 01:44 0.083% (Neb)) 11/19/18 00:43 Ipratropium 0.5 mg ONCE STAT 11/19/18 DC 11/19/18 [place] NEB 00:42 01:44 (Atrovent 11/19/18 0.02% 00:43 (Neb)) Potassium 40 meq ONCE STAT 11/19/18 DC Chloride PO 00:58 (Klor-Con 20) 11/19/18 01:00 Magnesium 400 mg ONCE ONCE 11/19/18 DC Oxide PO 01:00 (Mag-Ox 400) 11/19/18 01:00 Aspirin 162 mg ONCE ONCE 11/19/18 DC 11/19/18 (Aspirin) PO 01:30 01:52 11/19/18 01:31 Ondansetron 4 mg ER BRIDGE 11/19/18 HCl (Zofran PRN IV 02:00 Inj) NAUSEA AND/OR 11/20/18 VOMITING 01:59 650 mg ER BRIDGE 11/19/18 Acetaminophen PRN PO MILD 02:00 (Tylenol PAIN(1-3)OR 11/20/18 Tab) ELEVATED TEMP 01:59 Furosemide 20 mg ONCE ONCE 11/19/18 DC 11/19/18 (Lasix) IV 02:30 02:14 11/19/18 02:31 Procedures/MDM EMERGENT LABS AND DIAGNOSTIC STUDIES: Lab Results above were reviewed and interpreted by me. CBC: Mild anemia. No evidence of infection BMP: Elevated BUN and creatinine, consistent with acute renal failure. No e vidence of severe electrolyte abnormality. Hyperglycemic. BNP significantly elevated, consistent with fluid overload Troponin elevated, concerning for myocardial ischemia Lactate elevated, consistent with tissue hypoperfusion and possible severe sepsis Influenza negative 12-lead EKG #1 was interpreted by Haja Reyna MD: ST at 104bpm LVH with QRS widening and repolarization abnormality T wave inversions in the inferior leads, chronic and seen on old EKG Mild ST depressions in V5 and V6 with hyperacute T waves, new No acute STEMI. Abnormal EKG concerning for possible ischemia 12-lead EKG #2 was interpreted by Haja Reyna MD: Normal sinus rhythm LVH with QRS widening and repolarization abnormality T wave inversions in the inferior leads, chronic and seen on old EKG Mild ST depressions in V5 and V6 with hyperacute T waves No acute STEMI. Abnormal EKG concerning for possible ischemia. Unchanged from first EKG Radiology Results as interpreted by Radiology below were reviewed by Marilyn Reyna MD: Chest XR: IMPRESSION: 1. Atherosclerosis of the thoracic aorta. 2. Findings compatible with worsening congestive failure. There could be a background progressive interstitial lung disease. Correlation with the patient's clinical findings and laboratory data is necessary. RPTAT:AAJJ Sabrina Solis Physician Date Time Electronically viewed and signed by Sabrina Solis Physician on 11/19/2018 01:31 Initial Nursing notes reviewed. Previous Medical Records requested via the Electronic Health Record. EMERGENCY DEPARTMENT COURSE / MEDICAL DECISION MAKING: Patient is presenting with respiratory distress that was acute in onset. He was afebrile but was noted to be tachypneic and tachycardic, meeting Sirs criteria. Given he has a history of COPD and multiple comorbidities, he is at increased risk for bacterial lower respiratory tract infection so sepsis workup was started and broad-spectrum antibiotics were given. He was also started on breathing treatments given possible COPD exacerbation. During his ED course, his results showed that he did have fluid overload on his chest x-ray with elevated BNP. For this reason his IV fluids were stopped and he did not receive a full 30 mils per kilogram. He only received about 800 mL of IV fluids. I did a bedside ultrasound which showed a full non-collapsible IVC. For this reason I do not think any further IV fluids are indicated. Labs also showed elevated troponin, consistent with non-ST elevation [place]. His EKG did show evidence of hyperacute T waves which remained stable but did not show any other acute abnormalities that would meet STEMI criteria. At this time I have a lower suspicion for acute bacterial infection. Although he had lactic acidosis, I believe this is likely secondary to tissue hypoperfusion in the setting of CHF exacerbation and hypoxia. His lactic acidosis did improve during his ED course. Patient was given Lasix 20 mg IV for his fluid overload. Aspirin was also given. Patient will require further stabilization and is at risk of decompensation. Plan to admit to telemetry. Critical Care Time: 40 minutes Treatments/Evaluations: Close monitoring and treatment of unstable vital signs, cardiorespiratory, and neurologic status, while maintaining tight balance of fluid, respiratory, and cardiac interventions. This time includes discussing the case with the patient and the patients family. This time does not include all procedures stated elsewhere in this record. This time also includes reviewing old records, labs and radiological studies. This time includes examining and re- examining the patient. Additionally, this time also includes arranging care with admitting and consulting physicians. Accepting Care Team: Current data and ongoing care discussed. Time: Time of admission Primary Provider: Dr. Maynard Departure Diagnosis: Primary Impression: Acute respiratory failure with hypoxia and hypercapnia Additional Impressions: Non-ST elevation [place] (NSTEMI) Acute renal failure Acute renal failure type: unspecified Qualified Codes: N17.9 - Acute kidney failure, unspecified Anemia Anemia type: unspecified type Qualified Codes: D64.9 - Anemia, unspecified Acute exacerbation of CHF (congestive heart failure) Heart failure type: unspecified Qualified Codes: I50.9 - Heart failure, unspecified COPD with exacerbation Condition: Serious ILEANA REYNA MD Nov 19, 2018 00:22
[2018-11-19] MEDS ORDERED: SODIUM CHLORIDE 0.9% 1L BAG IV* STA (00:40)
[2018-11-19] MEDS ORDERED: IPRATROPIUM (NEB) 0.5 MG/2.5 ML AMP NEB STA (00:42)
[2018-11-19] MEDS ORDERED: ALBUTEROL 0.083% (NEB) 2.5 MG/3 ML AMP NEB STA (00:42)
[2018-11-19] MEDS ORDERED: POTASSIUM CHLORIDE (SR) 20 MEQ TAB PO STA (00:58)
[2018-11-19] MEDS ORDERED: MAGNESIUM OXIDE 400 MG TAB PO ONE (01:00)
[2018-11-19] MEDS ORDERED: LEVOFLOXACIN 750MG/D5W (PMX) 150 ML IVPB ONE (01:00)
[2018-11-19] MEDS ORDERED: ASPIRIN 81 MG TAB PO ONE (01:30)
[2018-11-19] MEDS ORDERED: ACETAMINOPHEN 325 MG TAB PO PRN ×2 (02:00→05:30)
[2018-11-19] MEDS ORDERED: ONDANSETRON 4 MG INJ IV PRN ×2 (02:00→05:30)
[2018-11-19] MEDS ORDERED: FUROSEMIDE 20 MG INJ IV ONE (02:30)
--- NOTE | 2018-11-19 05:23 | HP ---
Date/Time of Note Date/Time of Note DATE: 11/19/18 TIME: 05:15 Assessment/Plan Lines/Catheters [facility] Saline Lock Assessment/Plan Assessment/Plan 1. NSTEMI -Telemetry monitoring -Supplemental oxygen, aspirin, statin. As needed nitro -Trend troponin -2D echo and cardiology consult -Check A1c, fasting lipid and TSH in a.m. 2. Acute on chronic diastolic CHF exacerbation -ACEI and Lasix -See #1 3. Presumed MIREYA -Last year patient presented with a creatinine of 1.7, which has normalized prior to discharge -Monitor for now -Renal ultrasound and nephrology consult 4. Hypertension: BP within goal. Adjust BP meds as needed 5. Dyslipidemia: Continue statin 6. BPH: Continue home med 7. Diabetes: Insulin while in-house 8. History of moderate aortic stenosis HPI/ROS Admit Date/Time Admit Date/Time Nov 19, 2018 at 02:06 Hx of Present Illness This is an 83-year-old male with a history of hypertension, diabetes, dyslipidemia, COPD, BPH, moderate aortic stenosis, CHF who presented to ER complaining of shortness of breath. Symptoms started a few hours prior to arrival to the ER. Also reported cough and congestion. Denies chest pain When presented to ER, initial vitals stable. Labs shows troponin of 0.66, creatinine 1.5. EKG shows peaked T waves. VBG shows a pH of 7.2, PCO2 77. Chest x-ray shows CHF and interstitial lung disease. Patient was admitted here last year and was ruled out for ACS. At that time he presented with a creatinine of 1.7, but normalized at the time of discharge. PMH/Family/Social Past Medical History Coded Allergies: erythromycin base (Verified Allergy, Unknown, 07/15/17) Social History Smoking Status: Former smoker Exam/Review of Systems Vital Signs Vitals Vital Signs Date Temp Pulse Resp B/P (MAP) Pulse Ox O2 O2 Flow FiO2 Time Delivery Rate 11/19/18 97.8 102 24 126/58 98 Nasal 05:00 (80) Cannula 11/19/18 2.0 03:00 Medications Medications Current Medications Ondansetron HCl (Zofran Inj) 4 mg ER BRIDGE PRN IV NAUSEA AND/OR VOMITING; Start 11/19/18 at 02:00; Stop 11/20/18 at 01:59 Acetaminophen (Tylenol Tab) 650 mg ER BRIDGE PRN PO MILD PAIN(1-3)OR ELEVATED TEMP; Start 11/19/18 at 02:00; Stop 11/20/18 at 01:59 Results Result Diagram: 11/19/18 0050 11/19/18 0050 Results 24 hrs Laboratory Tests Test 11/19/18 00:23 11/19/18 00:39 11/19/18 00:50 11/19/18 02:42 Blood Gas Blood venous Specimen Source Arterial Blood 11/19/2018 1:37 Date Drawn :04 AM Arterial Blood VENOUS LINE Gas Puncture Site Marco Test N/A Venous Blood pH 7.199 *L Venous Blood 77.0 H pCO2 (Temp Corrected ) Venous Blood 35.8 H pO2 (Temp Corrected ) Venous Blood 29.4 H HCO3 Venous Blood 47.1 L Oxygen Saturation Venous Blood 0 Base Excess Venous Blood 10.6 Total Hemoglobin Venous Blood 46.5 Oxyhemoglobin Venous Blood 0.4 Methemoglobin Carboxyhemoglob 0.8 in Blood Gas 37.0 Temperature Blood Gas NASAL CANNULA Modality FiO2 27.0 Blood Gas Cassi REYNA MD Critical Value Read Back Blood Gas MG Notified Whom Blood Gas 11/19/2018 1:42 Notified Time :01 AM POC Venous 3.2 *H 1.9 Lactate White Blood 10.7 # Count Red Blood Count 4.81 Hemoglobin 10.2 L Hematocrit 35.1 L Mean 73.0 L Corpuscular Volume Mean 21.2 L Corpuscular Hemoglobin Mean 29.1 L Corpuscular Hemoglobin Conc ent Red Cell 16.6 H Distribution Width Platelet Count 189 Mean Platelet 8.6 Volume Immature 0.700 H Granulocytes % Neutrophils % 86.7 H Lymphocytes % 6.9 L Monocytes % 5.5 Eosinophils % 0.0 Basophils % 0.2 Nucleated Red 0.0 Blood Cells % Immature 0.080 H Granulocytes # Neutrophils # 9.3 H Lymphocytes # 0.7 L Monocytes # 0.6 Eosinophils # 0.0 Basophils # 0.0 Nucleated Red 0.0 Blood Cells # Prothrombin 14.1 Time Prothrombin 1.1 Time Ratio INR 1.08 International Normalized Rati o Activated 30.6 Partial Thrombo plast Time Sodium Level 144 Potassium Level 4.9 Chloride Level 97 Carbon Dioxide 34 H Level Anion Gap 13 Blood Urea 40 H Nitrogen Creatinine 1.52 H Est Glomerular Filtrat Rate mL/min Glucose Level 220 Calcium Level 9.4 Troponin I 0.655 *H B-Type 22967 H Natriuretic Peptide Test 11/19/18 03:00 Urine Color YELLOW Urine Clarity CLEAR Urine pH 5.0 Urine Specific 1.011 [place] Urine Ketones NEGATIVE Urine Nitrite NEGATIVE Urine Bilirubin NEGATIVE Urine NEGATIVE Urobilinogen Urine Leukocyte 1+ H Esterase Urine 1 Microscopic RBC Urine 21 H Microscopic WBC Urine Bacteria FEW A Urine NEGATIVE Hemoglobin Urine Glucose NEGATIVE Urine Total 1+ H Protein MERVAT FERRO MD Nov 19, 2018 05:23
[2018-11-19] MEDS ORDERED: NACL 0.9% 3 ML SYG IV SCH (05:30)
[2018-11-19] MEDS ORDERED: ALBUTEROL HFA 8 GM INHALER INH PRN (05:30)
[2018-11-19] MEDS ORDERED: NITROGLYCERIN (SL) 0.4 MG TAB SL PRN (05:30)
[2018-11-19] MEDS ORDERED: ALBUTEROL/IPRATROPIUM (NEB) 3 ML AMP HHN PRN (05:30)
[2018-11-19] MEDS ORDERED: GLUCAGON 1 MG INJ IM PRN (06:00)
[2018-11-19] MEDS ORDERED: GLUCOSE GEL 15 GRAM TUBE BUCCAL PRN (06:00)
[2018-11-19] MEDS ORDERED: GLUCOSE GEL 15 GRAM TUBE PO PRN ×2 (06:00)
[2018-11-19] MEDS ORDERED: DEXTROSE 50% 50 ML SYRINGE IV PRN ×2 (06:00)
[2018-11-19] MEDS: ENOXAPARIN 60 MG/0.6 ML SYG SC SCH (06:05)
[2018-11-19] MEDS: LISINOPRIL 20 MG TAB PO SCH (08:39)
[2018-11-19] MEDS: FUROSEMIDE 20 MG INJ IV SCH ×2 (08:39→18:02)
[2018-11-19] MEDS: INSULIN ASPART [NOVOLOG] 3 ML PEN SC SCH ×4 (08:41→20:40)
--- NOTE | 2018-11-19 09:59 | NUR ---
NURSE NOTE: PT A/Ox4 WITH INTERMITTENT PERIODS OF CONFUSION WHEN HE TRIES TO GET OUT OF BED TO USE THE BATHROOM, FREQUENT REORIENTATION DONE AND PT PROVIDED WITH URINAL; BED ALARM TURNED ON; PT IS IN NSR DENIES C/P; ON 2L NC O2 SAT >92%; EXPERIENCES SOB WITH EXERTION; LASIX 20 MG BID STARTED AND MORNING DOSE GIVEN; BG IN RANGE WAITING FOR PRIMARY MD TO ROUND TO START A DIET; ECHO AND RENAL US DONE; URINE STUDIES SENT; PT IS TELE OVERFLOW AND NOW HAS TELE BED AVAILABLE; REPORT GIVEN TO DELPHINE CASTRO, TRANSFERRED PT SAFELY TO NEW ROOM; VSS; THIS NURSE CALLED PT'S SON ARNOLD TO NOTIFY HIM OF PT STATUS AND TRANSFER, LEFT A MESSAGE.
--- NOTE | 2018-11-19 11:55 | PN ---
Date/Time of Note Date/Time of Note DATE: 11/19/18 TIME: 11:48 Assessment/Plan VTE Prophylaxis Risk score (from Ns)>0 risk: 7 SCD applied (from Ns): Yes Pharmacological prophylaxis: heparin Lines/Catheters [facility] Saline Lock Urinary Cath still in place: No Assessment/Plan Problems: (1) Non-ST elevation [place] (NSTEMI) Status: Acute Comment: Follow serial enzymes. Will ask cardiology to see the patient in consultation. For now conservative management, okay for low-dose cardiosele ctive beta-blockade. (2) Moderate aortic stenosis by prior echocardiogram Status: Chronic Comment: His physical exam is consistent with this. Please see the echocardiogram he had last year. Given this and given history of syncope I am would like to be a little bit more cautious about her afterload reduction. I am not can adjust the REGINA inhibitor when okay to change the Terazosin and over to alfuzosin for his prostate. Further management with the guidance of cardiology (3) Chronic obstructive pulmonary disease (COPD) Status: Chronic Comment: Add in treatment for this especially since the patient is wheezing. Qualifiers: COPD type: unspecified COPD Qualified Codes: J44.9 - Chronic obstructive pulmonary disease, unspecified (4) Respiratory failure with hypoxia and hypercapnia Status: Acute Comment: Follow carefully. ABG in the morning (5) Lactic acidosis Status: Acute Comment: Follow levels (6) Chronic kidney disease, stage III (moderate) Status: Chronic Comment: Using the Cockcroft-Gault equation this gentleman creatinine clearance is diminished to 27 cc (7) Abnormal liver function test Status: Chronic Comment: Check hepatitis serologies per NIH guidelines (8) Benign prostatic hyperplasia with lower urinary tract symptoms Status: Chronic Comment: Add in 5 alpha reductase inhibitor. Qualifiers: Lower urinary tract symptom detail: urinary hesitancy Qualified Codes: N40.1 - Benign prostatic hyperplasia with lower urinary tract symptoms; R39.11 - Hesitancy of micturition (9) Essential hypertension Status: Chronic Comment: Follow and adjust as appropriate (10) Hyperlipidemia associated with type 2 diabetes mellitus Status: Chronic Comment: Continue with statin therapy (11) Anemia Status: Acute Comment: Check iron levels Qualifiers: Anemia type: unspecified type Qualified Codes: D64.9 - Anemia, unspecified (12) Diabetes mellitus type 2 in nonobese Status: Chronic Comment: Use of glipizide an 83-year-old gentleman with renal insufficiency is somewhat aggressive maneuver. He denies any known hypoglycemia but again I am somewhat concerned and will look at adjusting his regimen (13) Acute respiratory failure with hypoxia and hypercapnia Status: Acute Comment: Follow him carefully Subjective 24 Hr Interval Summary Free Text/Dictation Asthenic elderly male who reports that he does not remember why he was brought to the hospital. Constitutional: no complaints (Eyes fevers chills or sweats) Respiratory: no complaints (Reports he is not short of breath he is not coughing) Cardiovascular: no complaints (Denies chest pain PND orthopnea) Gastrointestinal: no complaints Genitourinary: other (Does note urinary hesitancy) Neurologic: no complaints Exam/Review of Systems Vital Signs Vitals Vital Signs Date Temp Pulse Resp B/P (MAP) Pulse Ox O2 O2 Flow FiO2 Time Delivery Rate 11/19/18 97.4 92 16 109/70 98 11:17 (83) 11/19/18 Nasal 2.0 10:29 Cannula Intake and Output 11/18/18 11/18/18 11/19/18 1515:00 23:00 07:00 OutputOutput Total 50 ml BalanceBalance -50 ml Exam Constitutional: alert Head: normocephalic, atraumatic Respiratory: normal air movement, crackles/rales, wheezing Cardiovascular: regular rate and rhythm, nl pulses, murmurs/extra sounds (Crease carotid upstrokes and rapid descent) Gastrointestinal: soft, nl liver, spleen, non-tender Skin: other (Sacral decub) THOR MANCUSO MD Nov 19, 2018 11:55
[2018-11-19] MEDS: METOPROLOL (XL) 25 MG TAB PO SCH ×2 (12:00→20:34)
--- NOTE | 2018-11-19 12:02 | CONS ---
DATE OF ADMISSION: 11/19/2018 DATE OF CONSULTATION: 11/19/2018 NEPHROLOGY CONSULTATION REASON FOR CONSULTATION: Acute kidney injury. REQUESTING PHYSICIAN: Wesly Ferro MD. HISTORY OF PRESENT ILLNESS: This is an 83-year-old male with a past medical history of hypertension, diabetes, dyslipidemia, COPD, BPH, history of CHF, history of aortic stenosis, history of CKD with b aseline creatinine around 1.1 to 1.4 mg/dl who presents to [facility] with complain ts of shortness of breath. The patient's symptoms started a few hours prior to arrival to the emerge ncy room, the patient also reported cough and congestion. Upon arrival to the ER, the patient's labo ratory data showed a troponin of 0.66, creatinine 1.5. The patient had a VBG which showed pH 7.2, pC O2 77. Chest x-ray shows CHF and interstitial lung disease. The patient in the emergency room was g iven diuretic therapy and admitted to telemetry for further evaluation. In terms of patient's renal history, the patient has underlying CKD with previous baseline creatinine s ranging from 1.1 to 1.5 mg per deciliter. The patient himself denies any hemoptysis, hematemesis, h ematochezia. PAST MEDICAL HISTORY: As stated above, history of CKD, hypertension, dyslipidemia, BPH, CHF, aortic stenosis. PAST SURGICAL HISTORY: The patient has had an appendectomy, right eyelid surgery. FAMILY HISTORY: No family history of kidney disease. SOCIAL HISTORY: Does not actively smoke, drink or do drugs. ALLERGIES: PLEASE SEE LIST. MEDICATIONS: The patient's medications have been reviewed. REVIEW OF SYSTEMS: A 14-point review of systems was conducted. Pertinent positives stated in HPI, o therwise negative. PHYSICAL EXAMINATION: VITAL SIGNS: Blood pressure is 126/58, respirations 24, pulse 102, temperature is 97.8. HEENT: Head is normocephalic. NECK: Supple. HEART: Regular rate. LUNGS: Show diminished breath sounds at the base. ABDOMEN: Soft, nontender to palpation without rebound or guarding. EXTREMITIES: Negative for clubbing, cyanosis, no edema. DERMATOLOGIC: No rashes. MUSCULOSKELETAL: No joint effusions. NEUROLOGIC: No change in exam. MEDICATIONS: The patient's medications have been reviewed. LABORATORY DATA: Shows white count 10.8, hemoglobin 9.6, platelet count is 209. Sodium 142, potassi um 4.9, chloride 98, BUN 40, creatinine 1.43. Lactic acid is 4.3, hemoglobin 6.0. Troponin 0.89. ASSESSMENT AND PLAN: This is an 83-year-old male who presents with: 1. Nonoliguric acute kidney injury on top of chronic kidney disease with previous baseline creatinin e between 1.1 to 1.3 mg/dL. Etiology of current acute kidney injury is likely secondary to hemodynam ics, REGINA inhibitor effect, questionable cardiorenal syndrome. The patient's urinalysis shows mild py uria, no significant hematuria. The patient's renal function has marginally improved with diuretic t herapy. The plan at this point is to repeat a UA with microanalysis. Will check urine electrolytes, calculate a fractional excretion of urea. Will check a renal ultrasound to evaluate renal parenchym a. Would continue lisinopril at this time. Continue diuretic therapy, otherwise continue supportive care, renally dose all meds, avoid nephrotoxins. 2. Anemia. Monitor hemoglobin and hematocrit levels. 3. Mineral bone disorder, monitor calcium and phosphorus levels. 4. Acute on chronic heart failure, possibly diastolic. Underlying cause of exacerbation unclear. R ule out acute coronary syndrome. Will check a 2D echo. Continue medical management with diuretic th erapy, continue REGINA inhibitor at this time. 5. Lactic acidosis. Etiology may be type A due to hemodynamics. Would repeat lactic acid level. 6. Elevated troponin, possible non-STEMI type 1 versus type 2. Continue current medical management. Follow up with Cardiology. 7. Hypertension. Blood pressure currently at goal. 8. Dyslipidemia: Continue statin therapy. 9. Diabetes. Continue insulin regimen. 10. History of moderate aortic stenosis. Continue to monitor. Thank you, Dr. Ferro, for this interesting consult. It will be a pleasure to follow patient with you throughout the hospital course. Dictated By: PADILLA MCNALLY DO NR/NTS Conf#: [id number] DID#: [id number] CC: KIKE RIBEIRO MD; WESLY FERRO MD;*EndCC*
[2018-11-19] MEDS: FINASTERIDE 5 MG TAB PO SCH (12:39)
[2018-11-19] MEDS: ACCU-CHEK XX SCH ×3 (13:25→20:40)
[2018-11-19] MEDS: FLUTICASONE/VILANTEROL 100-25 INH SCH (13:48)
--- NOTE | 2018-11-19 14:00 | NUR ---
Notfied by MT that patient has ST depression. Noted positive troponin levels x3. Latest 1.[address] Fritz made aware. Verbalized that he will see patient today.
--- NOTE | 2018-11-19 15:55 | RADRPT ---
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 Physician: MERVAT FERRO Quality: Technically Difficult Study Procedures: Transthoracic echocardiogram examination difficult images patient thin, good subcostal images. Indications: Nontransmural Myocardial Infarction. 2D/M Mode Doppler Measurement Value Normal Range Measurement Value Normal Range IVSd 2D 1.2 0.6 - 1.1 cm BERNICE VTI 0.7 cm2 LA Dimen 2D 4.8 2.3 - 4.0 cm AV Mean Alexis 2.0 m/sec LVOT Diam 2.0 cm AV Mean PG 19.0 mmHg AV VTI 61.5 cm AI Peak PG 56.0 mmHg AI Peak Alexis 3.7 m/sec LVOT Mean Alexis 0.4 m/sec LVOT Mean PG 1.0 mmHg LVOT Peak Alexis 0.5 m/sec LVOT Peak PG 1.0 mmHg MV E Peak Alexis 1.5 m/sec MV A Peak Alexis 1.1 m/sec MV E/A 1.4 MV PHT 51.0 msec MV Decel Time 174 msec MV Decel [place] 9 Lat E` Alexis 0.1 m/sec Lateral E/E` 27.9 MV E/A 1.4 MV PHT 51.0 msec MVA PHT 4.3 cm2 PV Peak Alexis 0.7 m/sec PV Peak PG 2.0 mmHg Findings Left Ventricle: Normal left ventricular cavity size. Severe global left ventricular systolic dysfunction, not all don are imaged well. Tissue Doppler/Mitral Doppler indices are consistent with pseudonormalization with mildly elevated left atrial pressure (Stage II diastolic dysfunction). Mild concentric left ventricular hypertrophy. The left ventricular ejection fraction is visually estimated at 30 - 35 %. Right Ventricle: Normal right ventricular size. Mild right ventricular hypokinesis. Left Atrium: There is moderate enlargement of left atrium. Right Atrium: The right atrium is normal in size and appearance. Atrial Septum: Normal atrial septum. Mitral Valve: Anterior mitral valve leaflet appear mildly thickened. Posterior mitral valve leaflet appear mildly thickened. Moderate mitral annular calcification. Mild mitral regurgitation. Aortic Valve: Severe aortic stenosis (PV 3 m/s, MG 19 mmHg, calculated BERNICE 0.67, DI by VTI 0.21). Aortic cusps appear severely calcified. Moderate to severe aortic regurgitation, severe AR by PHT. Tricuspid Valve: Normal appearance and function of the tricuspid valve with trace physiologic regurgitation. Pulmonic Valve: Normal pulmonic valve appearance and function with trivial (physiologic) regurgitation. No evidence of pulmonic regurgitation. Pericardium: Normal pericardium with no significant pericardial effusion. Aorta: Normal aortic root. IVC: Normal inferior vena cava appearance. Pulmonary Artery: Normal pulmonary artery size. Conclusions Technically challenging study. The left ventricle is normal in size with severely reduced systolic function. Estimated left ventricular ejection fraction of 30-35%. There appears to be global hypokinesis, although not all wall segments are well-visualized. Mild concentric left ventricular hypertrophy. Grade 2 diastolic dysfunction. Severe aortic stenosis with calculated aortic valve area of 0.67 cm2. Moderate to severe aortic regurgitation. Electronically Signed By: Tony Fritz 19-Nov-2018 15:54:30 -0800 Patient Name: JOSE MIGUEL DOMINGUEZ Study Date: 19-Nov-2018 [id number]
--- NOTE | 2018-11-19 17:49 | CONS ---
Date/Time of Note Date/Time of Note DATE: 11/19/18 TIME: 17:41 Assessment/Plan Assessment/Plan Chief Complaint/Hosp Course Assessment: Acute on chronic systolic and diastolic heart failure - LVEF 30-35% with global hypokinesis, mild LVH with grade 2 diastolic dysfunction Severe aortic stenosis - calculated BERNICE 0.67 cm2, DI 0.21 NSTEMI Acute kidney injury Hypertension Dyslipidemia Diabetes mellitus Chronic obstructive pulmonary disease Recommendations: -cautious diuresis on Lasix 20mg IV BID -aspirin 81mg daily -continue statin -continue lisinopril and metoprolol -plan for cardiac catheterization and work up for aortic valve replacement Consultation Date/Type/Reason Admit Date/Time Nov 19, 2018 at 02:06 Type of Consult Cardiology Reason for Consultation congestive heart failure, elevated troponin Hx of Present Illness The patient is an 83 year-old male who presented with shortness of breath. He reports intermittent shortness of breath for over a year, but worse today prompting presentation. He denies chest pain or syncope. EKG shows sinus rhythm and left ventricular hypertrophy with QRS widening and repolarization abnormalities. Initial troponin was 0.6 and has trended up to 1. 1. Transthoracic echocardiogram shows a reduced left ventricular ejection fraction of 30-35% and severe aortic stenosis with moderate to severe aortic regurgitation. 14 point review of systems negative other than per HPI. Past Medical History Aortic stenosis Hypertension Dyslipidemia Diabetes mellitus Chronic obstructive pulmonary disease Medications Current Medications IV Flush (NS 3 ml) 3 ml PER PROTOCOL IV ; Start 11/19/18 at 05:30 Ondansetron HCl (Zofran Inj) 4 mg Q6H PRN IV NAUSEA AND/OR VOMITING; Start 11/19/18 at 05:30 Nitroglycerin (Nitroglycerin (Sl Tab) 0.4 Mg) 1 tab Q5M PRN SL CHEST PAIN; Start 11/19/18 at 05:30 Acetaminophen (Tylenol Tab) 650 mg Q6H PRN PO PAIN LEVEL 1-3 OR FEVER; Start 11/19/18 at 05:30 Albuterol/ Ipratropium (Duoneb) 3 ml Q2H RESP THERAPY PRN HHN SHORTNESS OF BREATH; Start 11/19/18 at 05:30 Albuterol (Ventolin Hfa) 2 puff Q4H RESP THERAPY PRN INH WHEEZING AND SOB; Start 11/19/18 at 05:30 Lisinopril (Zestril) 20 mg DAILY PO Last administered on 11/19/18at 08:39; Admin Dose 20 MG; Start 11/19/18 at 09:00 Trazodone HCl (Desyrel) 50 mg QHS PO ; Start 11/19/18 at 21:00 Atorvastatin Calcium (Lipitor) 10 mg DAILY@21 PO ; Start 11/19/18 at 21:00 Enoxaparin Sodium (Lovenox) 50 mg Q24H SC Last administered on 11/19/18at 06:05; Admin Dose 50 MG; Start 11/19/18 at 06:00 Miscellaneous Information 1 ea NOTE XX ; Start 11/19/18 at 06:00 Glucose (Glutose) 15 gm Q15M PRN PO DECREASED GLUCOSE; Start 11/19/18 at 06:00 Glucose (Glutose) 22.5 gm Q15M PRN PO DECREASED GLUCOSE; Start 11/19/18 at 06:00 Dextrose (D50w Syringe) 25 ml Q15M PRN IV DECREASED GLUCOSE; Start 11/19/18 at 06:00 Dextrose (D50w Syringe) 50 ml Q15M PRN IV DECREASED GLUCOSE; Start 11/19/18 at 06:00 Glucagon (Glucagen) 1 mg Q15M PRN IM DECREASED GLUCOSE; Start 11/19/18 at 06:00 Glucose (Glutose) 15 gm Q15M PRN BUCCAL DECREASED GLUCOSE; Start 11/19/18 at 06:00 Furosemide (Lasix) 20 mg BID DIURETICS IV Last administered on 11/19/18at 08:39; Admin Dose 20 MG; Start 11/19/18 at 08:00 Alfuzosin HCl (Uroxatral) 10 mg HS PO ; Start 11/19/18 at 21:00 Finasteride (Proscar) 5 mg DAILY PO Last administered on 11/19/18at 12:39; Admin Dose 5 MG; Start 11/19/18 at 11:30 Fluticasone/ Vilanterol (Breo Ellipta 100-25 Mcg Inh) 1 inh DAILY INH Last administered on 11/19/18at 13:48; Admin Dose 1 INH; Start 11/19/18 at 12:00 Metoprolol Succinate (Toprol Xl) 12.5 mg BID PO ; Start 11/19/18 at 12:00 Diagnostic Test (Pha) (Accu-Chek) 1 ea 2 HOURS AFTER MEALS XX ; Start 11/19/18 at 13:50 Diagnostic Test (Pha) (Accu-Chek) 1 ea AC MEALS XX Last administered on 11/19/18at 17:27; Admin Dose 1 EA; Start 11/19/18 at 17:25 Insulin Aspart (Novolog Insulin Pen) NOVOLOG *MILD* ALGORI... AC MEALS AND BEDTIME SC ; Start 11/19/18 at 17:25 Allergies: Coded Allergies: erythromycin base (Verified Allergy, Unknown, 07/15/17) Past Surgical History Past Surgical Hx: appendectomy Family History Significant Family History: no pertinent family hx (noncontributory given advanced age) Social History Smoking Status: Former smoker Exam/Review of Systems Vital Signs Vitals Vital Signs Date Temp Pulse Resp B/P (MAP) Pulse Ox O2 O2 Flow FiO2 Time Delivery Rate 11/19/18 117 16:07 11/19/18 98.3 16 126/62 96 15:14 (83) 11/19/18 Nasal 2.0 10:29 Cannula Intake and Output 11/18/18 11/18/18 11/19/18 1515:00 23:00 07:00 OutputOutput Total 50 ml BalanceBalance -50 ml Exam Constitutional: alert, well developed Psych: no complaints, nl mood/affect Head: normocephalic, atraumatic Eyes: nl conjunctiva, nl lids ENMT: nl external ears & nose, nl nasal mucosa & septum Neck: supple, non-tender, jvd Respiratory: diminished breath sounds; No wheezing Cardiovascular: systolic murmur Gastrointestinal: soft, non-tender Musculoskeletal: nl extremities to inspection Extremities: No cyanosis, No clubbing, No edema KIKE RIBEIRO MD Nov 19, 2018 17:48
--- NOTE | 2018-11-19 18:40 | NUR ---
EOSS Patient is alert and oriented to person, place, and time with periods of confusion noted. No complaint of pain. Patient is currently NPO per MD order. Post void bladder scan done per MD order. Patient was seen by entry level account executive today. Reoriented patient several times that he should call for assistance when getting up. Patient noted with unstable gait. bed alarm in place. All needs attended to and met. Call light within reach.
[2018-11-19] MEDS: ATORVASTATIN 10 MG TAB PO SCH (20:33)
[2018-11-19] MEDS: traZODone 50 MG TAB PO SCH (20:33)
[2018-11-19] MEDS: ALFUZOSIN (SR) 10 MG TAB PO SCH (20:39)
[2018-11-19] MEDS ORDERED: TERAZOSIN 5 MG CAP PO SCH (21:00)
[2018-11-20] VITALS (13 sets, daily range): BP systolic 95–121; BP diastolic 50–59; PULSE 80–108; RESP 16–18
[2018-11-20] MEDS ORDERED: ACCU-CHEK XX SCH (02:00)
[2018-11-20] MEDS: ENOXAPARIN 60 MG/0.6 ML SYG SC SCH (05:11)
[2018-11-20] MEDS: FUROSEMIDE 20 MG INJ IV SCH ×2 (05:17→17:43)
[2018-11-20] MEDS: ACCU-CHEK XX SCH ×6 (07:25→20:44)
[2018-11-20] MEDS: INSULIN ASPART [NOVOLOG] 3 ML PEN SC SCH ×3 (07:25→17:25)
[2018-11-20] MEDS: FLUTICASONE/VILANTEROL 100-25 INH SCH (08:29)
[2018-11-20] MEDS: ASPIRIN (EC) 81 MG TAB PO SCH (08:29)
[2018-11-20] MEDS: LISINOPRIL 20 MG TAB PO SCH (08:30)
[2018-11-20] MEDS: FINASTERIDE 5 MG TAB PO SCH (08:30)
[2018-11-20] MEDS ORDERED: METOPROLOL (XL) 25 MG TAB PO SCH (09:00)
[2018-11-20] MEDS ORDERED: MAGNESIUM SULFATE 2 GM/50 ML 50 ML IVPB ONE (09:00)
[2018-11-20] MEDS ORDERED: METHYLPREDNISOLONE 125 MG INJ IV ONE (10:00)
--- NOTE | 2018-11-20 10:09 | PN ---
Date/Time of Note Date/Time of Note DATE: 11/20/18 TIME: 09:46 Assessment/Plan VTE Prophylaxis Risk score (from Ns)>0 risk: 7 SCD applied (from Nsg): Yes Pharmacological prophylaxis: LMWH Lines/Catheters IV [facility]ter [facility]from [facility] Saline Lock Urinary Cath still in place: No Assessment/Plan Assessment/Plan 83-year-old male with a history of hypertension, diabetes, dyslipidemia, COPD, BPH, moderate aortic stenosis, CHF who presented to ER complaining of shortness of breath. Symptoms started a few hours prior to arrival to the ER. 1. Acute respiratory failure 2/2 #2 and #3 -Patient reports improvement 2. NSTEMI --aspirin 81mg daily -continue statin -plan for cardiac catheterization and work up for aortic valve replacement -continue metoprolol, lisinopril on hold 3. CHF exacerbation, acute on chronic, systolic and diastolic --cautious diuresis on Lasix 20mg IV BID 4. Diabetes mellitus type 2 -Good in-house control on sliding scale only at this point -Hemoglobin A1c 6.0 -Patient on glipizide as outpatient, may be a poor choice for patient in view of chronic kidney disease 5. Lactic acidosis: resolved -No evidence of infection, likely secondary to hypoperfusion from NSTEMI and respiratory failure 6. Chronic COPD with ?mild exacerbation -continue home Breo, as well as as needed bronchodilator therapy -Mild wheezing noted, will give 1 dose of systemic steroids, hold off on antibiotic therapy for now 6. Transaminitis: Acute -Hepatitis B surface antigen and hepatitis C antibodies negative -Hepatic ultrasound,?Fatty liver, ?Hepatic hypoperfusion -Trend levels 7. Remote tobacco user, quit 15 years ago 8. Dyslipidemia -good indices at this time, continue home statin therapy 9. BPH -stable, continue home alpha viji 10. Hypertension -good in house control on current regimen, -ACEi d/adrianna for MIREYA 11. Chronic hypochromic microcytic anemia secondary to iron deficiency rule out chronic GI blood loss -Intravenous iron replacement therapy for 5 days 12. Hypomagnesemia -Replete 13. Hyperphosphatemia -trend, intervene as indicated 14. MIREYA on Chronic kidney disease -Renal ultrasound unremarkable -Renally dose all meds. Serial labs. 15. Chronic cardiomyopathy with ejection fraction 30-35% -Cardiology following and managing, patient on metoprolol 16. Severe aortic stenosis with Moderate to severe aortic regurgitation -Cardiology recommends aortic replacement surgery, follow-up with them to see if this is recommended immediately or as outpatient Subjective 24 Hr Interval Summary Free Text/Dictation feels better, still requiring o2 at 4L lives at home with his son no O2 at home Exam/Review of Systems Vital Signs Vitals Vital Signs Date Temp Pulse Resp B/P (MAP) Pulse Ox O2 O2 Flow FiO2 Time Delivery Rate 11/20/18 Nasal 2.0 08:34 Cannula 11/20/18 107 08:23 11/20/18 97.9 16 121/59 91 07:47 (79) Intake and Output 11/19/18 11/19/18 11/20/18 1414:59 22:59 06:59 OutputOutput Total 200 ml 700 ml 600 ml BalanceBalance -200 ml -700 ml -600 ml Exam Constitutional: alert, frail; No distress Psych: nl mood/affect Head: normocephalic, atraumatic Eyes: PERRL; No icteric ENMT: mucosa pink and moist Neck: supple Respiratory: diminished breath sounds (on the L , with end exp wheezing R lung base) Cardiovascular: regular rate and rhythm Gastrointestinal: soft, non-tender, bowel sounds Extremities: No edema Neurological: nl mental status; No focal weakness SHRUTHI MELENDREZ Nov 20, 2018 09:58
--- NOTE | 2018-11-20 10:36 | PN ---
DATE: 11/20/2018 SUBJECTIVE: The patient is stable, no events overnight. No fevers, chills, nausea, vomiting. OBJECTIVE: VITAL SIGNS: Blood pressure is 121/59, respirations 16, pulse 94, temperature 97.9. HEENT: Head is normocephalic. NECK: Supple. HEART: Regular rate. LUNGS: Show diminished breath sounds at the base. ABDOMEN: Soft, nontender to palpation without rebound or guarding. EXTREMITIES: Negative for clubbing, cyanosis, no edema. DERMATOLOGIC: No rashes. MUSCULOSKELETAL: No joint effusion. NEUROLOGIC: No change in exam. MEDICATIONS: Reviewed. LABORATORY DATA: Shows sodium 143, potassium 4.8, hematocrit 42, creatinine 1.52, magnesium 1.5, whi te count 12.0, hemoglobin 9.8, platelet count 179. Patient's urinalysis was reviewed. Renal ultraso und was unremarkable. ASSESSMENT AND PLAN: 1. Nonoliguric acute kidney injury on top of chronic kidney disease with previous baseline creatinin e 1.1 to 1.3 mg/dL. Etiology of acute kidney injury is secondary to hemodynamics, possible cardioren al syndrome. The patient's urinalysis was reviewed, was bland, no active sediment. The patient's re nal ultrasound shows no evidence of obstruction. The patient's renal function has been stable the la st 24 hours. At this point, continue current medical management, supportive care, renally dose all m eds. Continue Lasix. Consider transitioning to oral as the patient is approaching euvolemic status. Will monitor closely. 2. Anemia. Monitor hemoglobin and hematocrit levels. 3. Mineral bone disorder, monitor calcium and phosphorus levels. 4. Acute on chronic heart failure, systolic, diastolic. The patient's has ejection fraction of 30 t o 35%. The patient is clinically improving. Continue medical management. Follow up with cardiology . Will consider starting REGINA inhibitor once renal function stabilizes. 5. Elevated troponin, possible non-ST elevation myocardial infarction. Continue medical management. 6. Hypertension. Blood pressure currently at goal. 7. Dyslipidemia. Continue statin therapy. 8. Diabetes. Continue current insulin regimen. 9. History of aortic stenosis. Continue to monitor 10. Hypomagnesemia. Will replete with magnesium sulfate. Dictated By: PADILLA LOCKHART/MARIA A Conf#: [id number] DID#: [id number] CC: MERVAT FERRO MD;*EndCC*
--- NOTE | 2018-11-20 16:53 | CONS ---
Date/Time of Note Date/Time of Note DATE: 11/20/18 TIME: 16:52 Assessment/Plan Assessment/Plan Chief Complaint/Hosp Course Assessment: Acute on chronic systolic and diastolic heart failure - LVEF 30-35% with global hypokinesis, mild LVH with grade 2 diastolic dysfunction Severe aortic stenosis - calculated BERNICE 0.67 cm2, DI 0.21 NSTEMI Acute kidney injury Hypertension Dyslipidemia Diabetes mellitus Chronic obstructive pulmonary disease Recommendations: -cautious diuresis on Lasix 20mg IV BID -aspirin 81mg daily -continue statin -continue lisinopril and metoprolol -plan for cardiac catheterization (scheduled for Tuesday) and work up for aortic valve replacement -discussed with patient and his son, Nic (over the phone), and they are agreeable with proceeding Consultation Date/Type/Reason Admit Date/Time Nov 19, 2018 at 02:06 Initial Consult Date Type of Consult Cardiology 24 HR Interval Summary Free Text/Dictation No acute events. Detailed Summary Additional Comments 14 point review of systems without changes. Exam/Review of Systems Vital Signs Vitals Vital Signs Date Temp Pulse Resp B/P (MAP) Pulse Ox O2 O2 Flow FiO2 Time Delivery Rate 11/20/18 81 16:07 11/20/18 2.0 15:53 11/20/18 98.6 16 121/57 98 15:12 (78) 11/20/18 Nasal 08:34 Cannula Intake and Output 11/19/18 11/19/18 11/20/18 1515:00 23:00 07:00 OutputOutput Total 150 ml 700 ml 600 ml BalanceBalance -150 ml -700 ml -600 ml Exam Constitutional: alert, well developed Psych: no complaints, nl mood/affect Head: normocephalic, atraumatic Eyes: nl conjunctiva, nl lids ENMT: nl external ears & nose, nl nasal mucosa & septum Neck: supple, non-tender, jvd Respiratory: diminished breath sounds; No wheezing Cardiovascular: systolic murmur Gastrointestinal: soft, non-tender Musculoskeletal: nl extremities to inspection Extremities: No cyanosis, No clubbing, No edema Medications Medications Current Medications IV Flush (NS 3 ml) 3 ml PER PROTOCOL IV ; Start 11/19/18 at 05:30 Ondansetron HCl (Zofran Inj) 4 mg Q6H PRN IV NAUSEA AND/OR VOMITING; Start 11/19/18 at 05:30 Nitroglycerin (Nitroglycerin (Sl Tab) 0.4 Mg) 1 tab Q5M PRN SL CHEST PAIN; Start 11/19/18 at 05:30 Acetaminophen (Tylenol Tab) 650 mg Q6H PRN PO PAIN LEVEL 1-3 OR FEVER; Start 11/19/18 at 05:30 Albuterol/ Ipratropium (Duoneb) 3 ml Q2H RESP THERAPY PRN HHN SHORTNESS OF BREATH; Start 11/19/18 at 05:30 Albuterol (Ventolin Hfa) 2 puff Q4H RESP THERAPY PRN INH WHEEZING AND SOB; Start 11/19/18 at 05:30 Lisinopril (Zestril) 20 mg DAILY PO Last administered on 11/20/18at 08:30; Admin Dose 20 MG; Start 11/19/18 at 09:00; Status Hold Trazodone HCl (Desyrel) 50 mg QHS PO Last administered on 11/19/18at 20:33; Admin Dose 50 MG; Start 11/19/18 at 21:00 Atorvastatin Calcium (Lipitor) 10 mg DAILY@21 PO Last administered on 11/19/18at 20:33; Admin Dose 10 MG; Start 11/19/18 at 21:00 Enoxaparin Sodium (Lovenox) 50 mg Q24H SC Last administered on 11/20/18at 05:11; Admin Dose 50 MG; Start 11/19/18 at 06:00 Miscellaneous Information 1 ea NOTE XX ; Start 11/19/18 at 06:00 Glucose (Glutose) 15 gm Q15M PRN PO DECREASED GLUCOSE; Start 11/19/18 at 06:00 Glucose (Glutose) 22.5 gm Q15M PRN PO DECREASED GLUCOSE; Start 11/19/18 at 06:00 Dextrose (D50w Syringe) 25 ml Q15M PRN IV DECREASED GLUCOSE; Start 11/19/18 at 06:00 Dextrose (D50w Syringe) 50 ml Q15M PRN IV DECREASED GLUCOSE; Start 11/19/18 at 06:00 Glucagon (Glucagen) 1 mg Q15M PRN IM DECREASED GLUCOSE; Start 11/19/18 at 06:00 Glucose (Glutose) 15 gm Q15M PRN BUCCAL DECREASED GLUCOSE; Start 11/19/18 at 06:00 Furosemide (Lasix) 20 mg BID DIURETICS IV Last administered on 11/20/18at 05:17; Admin Dose 20 MG; Start 11/19/18 at 08:00 Alfuzosin HCl (Uroxatral) 10 mg HS PO Last administered on 11/19/18at 20:39; Admin Dose 10 MG; Start 11/19/18 at 21:00 Finasteride (Proscar) 5 mg DAILY PO Last administered on 11/20/18 08:30; Admin Dose 5 MG; Start 11/19/18 at 11:30 Fluticasone/ Vilanterol (Breo Ellipta 100-25 Mcg Inh) 1 inh DAILY INH Last administered on 11/20/18at 08:29; Admin Dose 1 INH; Start 11/19/18 at 12:00 Diagnostic Test (Pha) (Accu-Chek) 1 ea 2 HOURS AFTER MEALS XX Last administered on 11/20/18at 14:00; Admin Dose 1 EA; Start 11/19/18 at 13:50 Diagnostic Test (Pha) (Accu-Chek) 1 ea AC MEALS XX Last administered on 11/20/18at 11:49; Admin Dose 1 EA; Start 11/19/18 at 17:25 Insulin Aspart (Novolog Insulin Pen) NOVOLOG *MILD* ALGORI... AC MEALS AND BED TIME SC ; Start 11/19/18 at 17:25 Aspirin (Halfprin) 81 mg DAILY PO Last administered on 11/20/18at 08:29; Admin Dose 81 MG; Start 11/20/18 at 09:00 Metoprolol Tartrate (Lopressor) 25 mg BID PO ; Start 11/20/18 at 21:00 KIKE RIBEIRO MD Nov 20, 2018 16:53
--- NOTE | 2018-11-20 18:18 | NUR ---
EOSS Patient is alert and oriented to person, place, and time with periods of forgetfulness noted. No complaint of pain. Patient is currently NPO per MD order. Post void bladder scan done per MD order. Reoriented patient several times that he should call for assistance when getting up. Patient's son and Dr. Fritz discussed regarding patient's procedures to be done via telephone. bed alarm in place. Patient now on Low fat, low chol, 2 gm na diet. Able to tolerate well. All needs attended to and met. Call light within reach.
[2018-11-20] MEDS: ATORVASTATIN 10 MG TAB PO SCH (20:44)
[2018-11-20] MEDS: traZODone 50 MG TAB PO SCH (20:44)
[2018-11-20] MEDS: METOPROLOL 25 MG TAB PO SCH (20:45)
[2018-11-20] MEDS: ALFUZOSIN (SR) 10 MG TAB PO SCH (20:46)
[2018-11-20] MEDS: Insulin NOVOLOG SS MILD Algorithm (SS with meals and bedtime) SC SCH (21:00)
--- NOTE | 2018-11-20 23:30 | NUR ---
Pt voided 350 mL. Post void residual was 157 mL.
[2018-11-21] VITALS (10 sets, daily range): BP systolic 85–112; BP diastolic 50–57; PULSE 56–101; RESP 15–19
--- NOTE | 2018-11-21 05:00 | NUR ---
Pt voided 150 mL of urine. Post void bladder scan yield 100 mL.
[2018-11-21] MEDS: FUROSEMIDE 20 MG INJ IV SCH ×2 (06:15→17:30)
[2018-11-21] MEDS: ENOXAPARIN 60 MG/0.6 ML SYG SC SCH (06:17)
--- NOTE | 2018-11-21 06:38 | NUR ---
Pt voided 300 ml of urine. Post void bladder scan showed 164 mL.
[2018-11-21] MEDS: Insulin NOVOLOG SS MILD Algorithm (SS with meals and bedtime) SC SCH ×4 (07:25→21:00)
[2018-11-21] MEDS ORDERED: Insulin NOVOLOG SS MILD Algorithm (SS with meals and bedtime) SC SCH (07:25)
[2018-11-21] MEDS: ACCU-CHEK XX SCH ×6 (07:25→21:09)
--- NOTE | 2018-11-21 07:53 | NUR ---
EOSS: Pt asleep in bed. VS stable. Denies pain, sob. Post void bladder US recorded. Pt to have heart cath on tuesday11/22/[address] Fritz, consent signed. Blood glucose managed w/diet and insulin coverage. Rounded on hourly, bed in locked and low position, bed alarm green, bed rail x4, call light within reach; pt reminded to call when in need of assistance. Endorsed to Win.
--- NOTE | 2018-11-21 08:06 | PN ---
Date/Time of Note Date/Time of Note DATE: 11/21/18 TIME: 08:02 Assessment/Plan VTE Prophylaxis Risk score (from Ns)>0 risk: 6 SCD applied (from Nsg): Yes Pharmacological prophylaxis: LMWH Lines/Catheters IV Catheter Type (from Nrs): Saline Lock Urinary Cath still in place: No Assessment/Plan Result Diagram: 11/20/18 0555 11/20/18 0555 Results 24hrs Laboratory Tests Test 11/20/18 12:01 11/20/18 17:22 11/20/18 20:42 11/21/18 07:54 Bedside Glucose 87 102 213 131 Subjective 24 Hr Interval Summary Free Text/Dictation Subjective: no new complaints objective: Constitutional: alert, frail; No distress Psych: nl mood/affect Head: normocephalic, atraumatic Eyes: PERRL; No icteric ENMT: mucosa pink and moist Neck: supple Respiratory: diminished breath sounds (on the L , with end exp wheezing R lung base) Cardiovascular: regular rate and rhythm Gastrointestinal: soft, non-tender, bowel sounds Extremities: No edema Neurological: nl mental status; No focal weakness assessment and plan: 83-year-old male with a history of hypertension, diabetes, dyslipidemia, COPD, BPH, moderate aortic stenosis, CHF who presented to ER complaining of shortness of breath. Symptoms started a few hours prior to arrival to the ER. 1. Acute respiratory failure 2/2 #2 and #3 -Patient continues reports improvement -Continue to wean O2 2. NSTEMI --aspirin 81mg daily and full dose lovenox -continue statin -planned for cardiac catheterization on tuesday -continue metoprolol, lisinopril on hold 3. CHF exacerbation, acute on chronic, systolic and diastolic --cautious diuresis on Lasix 20mg IV BID 4. Diabetes mellitus type 2 -Good in-house control on sliding scale only at this point -Hemoglobin A1c 6.0 -Patient on glipizide as outpatient, may be a poor choice for patient in view of chronic kidney disease 5. Lactic acidosis: resolved -No evidence of infection, likely secondary to hypoperfusion from NSTEMI and respiratory failure 6. Chronic COPD with ?mild exacerbation -continue home Breo, as well as as needed bronchodilator therapy -Mild wheezing noted, will give 1 dose of systemic steroids, hold off on antibiotic therapy for now 6. Transaminitis: Acute -Hepatitis B surface antigen and hepatitis C antibodies negative -Hepatic ultrasound,?Fatty liver, ?Hepatic hypoperfusion -Trend levels 7. Remote tobacco user, quit 15 years ago 8. Dyslipidemia -good indices at this time, continue home statin therapy 9. BPH -stable, continue home alpha viji 10. Hypertension -good in house control on current regimen, -ACEi d/adrianna for MIREYA 11. Chronic hypochromic microcytic anemia secondary to iron deficiency rule out chronic GI blood loss -Intravenous iron replacement therapy for 5 days 12. Hypomagnesemia -Replete 13. Hyperphosphatemia -trend, intervene as indicated 14. MIREYA on Chronic kidney disease -Renal ultrasound unremarkable -Renally dose all meds. Serial labs. 15. Chronic cardiomyopathy with ejection fraction 30-35% -Cardiology following and managing, patient on metoprolol 16. Severe aortic stenosis with Moderate to severe aortic regurgitation -planned for cardiac catheterization (scheduled for Tuesday) and work up for aortic valve replacement 17. DNR/ DNI dispo: -cath on tuesday, wean o2 Exam/Review of Systems Vital Signs Vitals Vital Signs Date Temp Pulse Resp B/P (MAP) Pulse Ox O2 O2 Flow FiO2 Time Delivery Rate 11/21/18 97.9 90 16 109/57 97 07:22 (74) 11/21/18 2.0 02:59 11/20/18 Nasal 20:30 Cannula Intake and Output 11/20/18 11/20/18 11/21/18 1515:00 23:00 07:00 IntakeIntake Total 250 ml OutputOutput Total 800 ml BalanceBalance -550 ml Medications Medications Current Medications IV Flush (NS 3 ml) 3 ml PER PROTOCOL IV ; Start 11/19/18 at 05:30 Ondansetron HCl (Zofran Inj) 4 mg Q6H PRN IV NAUSEA AND/OR VOMITING; Start 11/19/18 at 05:30 Nitroglycerin (Nitroglycerin (Sl Tab) 0.4 Mg) 1 tab Q5M PRN SL CHEST PAIN; Start 11/19/18 at 05:30 Acetaminophen (Tylenol Tab) 650 mg Q6H PRN PO PAIN LEVEL 1-3 OR FEVER; Start 11/19/18 at 05:30 Albuterol/ Ipratropium (Duoneb) 3 ml Q2H RESP THERAPY PRN HHN SHORTNESS OF BREATH; Start 11/19/18 at 05:30 Albuterol (Ventolin Hfa) 2 puff Q4H RESP THERAPY PRN INH WHEEZING AND SOB; Start 11/19/18 at 05:30 Lisinopril (Zestril) 20 mg DAILY PO Last administered on 11/20/18at 08:30; Admin Dose 20 MG; Start 11/19/18 at 09:00; Status Hold Trazodone HCl (Desyrel) 50 mg QHS PO Last administered on 11/20/18at 20:44; Admin Dose 50 MG; Start 11/19/18 at 21:00 Atorvastatin Calcium (Lipitor) 10 mg DAILY@21 PO Last administered on 11/20/18at 20:44; Admin Dose 10 MG; Start 11/19/18 at 21:00 Enoxaparin Sodium (Lovenox) 50 mg Q24H SC Last administered on 11/21/18at 06:17; Admin Dose 50 MG; Start 11/19/18 at 06:00 Miscellaneous Information 1 ea NOTE XX ; Start 11/19/18 at 06:00 Glucose (Glutose) 15 gm Q15M PRN PO DECREASED GLUCOSE; Start 11/19/18 at 06:00 Glucose (Glutose) 22.5 gm Q15M PRN PO DECREASED GLUCOSE; Start 11/19/18 at 06:00 Dextrose (D50w Syringe) 25 ml Q15M PRN IV DECREASED GLUCOSE; Start 11/19/18 at 06:00 Dextrose (D50w Syringe) 50 ml Q15M PRN IV DECREASED GLUCOSE; Start 11/19/18 at 06:00 Glucagon (Glucagen) 1 mg Q15M PRN IM DECREASED GLUCOSE; Start 11/19/18 at 06:00 Glucose (Glutose) 15 gm Q15M PRN BUCCAL DECREASED GLUCOSE; Start 11/19/18 at 06:00 Furosemide (Lasix) 20 mg BID DIURETICS IV Last administered on 11/21/18at 06:15; Admin Dose 20 MG; Start 11/19/18 at 08:00 Alfuzosin HCl (Uroxatral) 10 mg HS PO Last administered on 11/20/18at 20:46; Admin Dose 10 MG; Start 11/19/18 at 21:00 Finasteride (Proscar) 5 mg DAILY PO Last administered on 11/20/18at 08:30; Admin Dose 5 MG; Start 11/19/18 at 11:30 Fluticasone/ Vilanterol (Breo Ellipta 100-25 Mcg Inh) 1 inh DAILY INH Last administered on 11/20/18 08:29; Admin Dose 1 INH; Start 11/19/18 at 12:00 Diagnostic Test (Pha) (Accu-Chek) 1 ea 2 HOURS AFTER MEALS XX Last administered on 11/20/18 20:44; Admin Dose 1 EA; Start 11/19/18 at 13:50 Diagnostic Test (Pha) (Accu-Chek) 1 ea AC MEALS XX Last administered on 11/20/18 11:49; Admin Dose 1 EA; Start 11/19/18 at 17:25 Aspirin (Halfprin) 81 mg DAILY PO Last administered on 11/20/18 08:29; Admin Dose 81 MG; Start 11/20/18 at 09:00 Metoprolol Tartrate (Lopressor) 25 mg BID PO ; Start 11/20/18 at 21:00 Insulin Aspart (Novolog Insulin Pen) (Adult SC Insulin - Mild Algorithm)... AC MEALS AND BEDTIME SC Last administered on 11/20/18 21:00; Admin Dose 1 UNIT; Start 11/20/18 at 21:00 SHRUTHI MELENDREZ Nov 21, 2018 08:06
[2018-11-21] MEDS: ASPIRIN (EC) 81 MG TAB PO SCH (08:32)
[2018-11-21] MEDS: FINASTERIDE 5 MG TAB PO SCH (08:33)
[2018-11-21] MEDS: FLUTICASONE/VILANTEROL 100-25 INH SCH (08:33)
[2018-11-21] MEDS: METOPROLOL 25 MG TAB PO SCH ×2 (08:33→21:00)
--- NOTE | 2018-11-21 11:29 | PN ---
DATE: 11/21/2018 SUBJECTIVE: The patient is stable overnight, no fevers, chills, nausea, vomiting. OBJECTIVE: VITAL SIGNS: Blood pressure is 109/56, respirations 16, pulse 90, temperature 97.9. HEENT: Head is normocephalic. NECK: Supple. HEART: Regular rate. LUNGS: Show diminished breath sounds at the base. ABDOMEN: Soft, nontender to palpation without rebound or guarding. EXTREMITIES: Negative for clubbing, cyanosis, no edema. DERMATOLOGIC: No rashes. MUSCULOSKELETAL: No joint effusion. NEUROLOGIC: No change in exam. MEDICATIONS: Reviewed. LABORATORY DATA: From 11/20/2018 was reviewed. Laboratory data from 11/21/2018 is pending. ASSESSMENT AND PLAN: 1. Nonoliguric acute kidney injury on top of chronic kidney disease with previous baseline creatinin e 1.1 and 1.2 mg/dL. Etiology of acute kidney injury is secondary to hemodynamics. The patient's re nal function appears to be stabilizing around a creatinine of 1.4 to 1.5 mg/dL. At this point, tad benson current treatment plan. Continue diuretic therapy. We will hold REGINA inhibitor at this time. Co ntinue supportive care, renally dose all meds, avoid nephrotoxins. 2. Anemia. Monitor hemoglobin and hematocrit levels. 3. Mineral bone disorder, monitor calcium and phosphorus levels. 4. Acute on chronic heart failure, systolic, diastolic. The patient is currently decompensated. Co ntinue medical management. Continue diuretic therapy. We will consider REGINA inhibitor once patient's renal function stabilizes. 5. Elevated troponin, non-STEMI, likely type 2. Continue medical management. 6. Hypertension. Continue current blood pressure regimen 7. Dyslipidemia. Continue statin therapy. 8. Diabetes. Continue current insulin regimen. 9. History of aortic stenosis. 10. Hypomagnesemia. Continue to monitor and replete as needed. Dictated By: PADILLA MCNALLY DO NR/NTS Conf#: [id number] DID#: [id number] CC: MERVAT FERRO MD; KIKE RIBEIRO MD;*EndCC*
[2018-11-21] MEDS: LORATADINE 10 MG TAB PO SCH (11:30)
--- NOTE | 2018-11-21 18:50 | NUR ---
EOSS- Pt resting in bed comfortably awaiting heart cath placement tomorrow. Pt to be NPO after midnight, pt aware. Pt needs met. Will endorse care to nightshift.
[2018-11-21] MEDS: traZODone 50 MG TAB PO SCH (21:10)
[2018-11-21] MEDS: ATORVASTATIN 10 MG TAB PO SCH (21:10)
[2018-11-21] MEDS: ALFUZOSIN (SR) 10 MG TAB PO SCH (22:16)
[2018-11-22] VITALS (35 sets, daily range): BP systolic 66–151; BP diastolic 36–68; PULSE 79–113; RESP 14–30
[2018-11-22] MEDS: FUROSEMIDE 20 MG INJ IV SCH (05:28)
[2018-11-22] MEDS: ENOXAPARIN 60 MG/0.6 ML SYG SC SCH (05:29)
--- NOTE | 2018-11-22 06:24 | NUR ---
EOSS: Pt asleep in bed. VS stable; BP has been borderline low-SBP low 90s. Morning lasix held. Lovenox held for procedure. Pt to have L sided heart cath w/Dr. Fritz at 0900 today. Denies pain, SOB. Rounded on hourly, bed in low and locked position, bed alarm green, bed rail x4, call light within reach; pt reminded to call when in need of assistance. Will endorse to daysbull RN. Addendum: 11/22/18 at 0655 by LIZZY OCHOA RN Post void bladder scans were 23 mL at start of shift w/300 output. But after putting out 200 mL at end of shift, residual was 210 mL.
[2018-11-22] MEDS ORDERED: LIDOCAINE 1% (MDV) 20 ML INJ ONE (07:21)
[2018-11-22] MEDS ORDERED: IODIXANOL LOCM 100 ML BTL ONE ×2 (07:21→08:17)
[2018-11-22] MEDS ORDERED: FENTAnyl 50 MCG/ML VIAL ONE (07:21)
[2018-11-22] MEDS ORDERED: HEPARIN 1000 UNITS/NS (A-LINE) 1,000 ML ONE (07:21)
[2018-11-22] MEDS ORDERED: MIDAZOLAM 1 MG/ML 2 ML INJ ONE (07:21)
[2018-11-22] MEDS: Insulin NOVOLOG SS MILD Algorithm (SS with meals and bedtime) SC SCH ×4 (07:25→21:00)
[2018-11-22] MEDS: ACCU-CHEK XX SCH ×6 (07:25→19:55)
--- NOTE | 2018-11-22 07:38 | NUR ---
patient off the unit for heart catheterization.
--- NOTE | 2018-11-22 08:53 | OPR ---
Date/Time of Note Date/Time of Note DATE: 11/22/18 TIME: 08:52 Operative Report Procedure Date: Nov 22, 2018 Preoperative Diagnosis NSTEMI,. severe Postoperative Diagnosis same Operation/Procedure Performed see details Surgeon see signature line Support Representative none Anesthesia Type: moderate sedation Estimated Blood Loss: minimal Transfusion none Specimen none Grafts/Implants none Complications none Procedure Description Procedure Date:11/22/18 [place] Aide/surgeon:Christel Vega MD. Procedures Performed: 1)Left heart catheterization with selective left and right coronary angiography. 2)Right heart catheterization Pre-operative Diagnosis:NSTEMI, low-flow/low-gradient severe , cardiomyopathy Post-operative Diagnosis:same Indications: 83 yo M who presented with SOB and was found to have decompensated CHF, EF 35%, NSTEMI (trop 1), severe low-flow/ low-gradient . Needs cardiac cath for evaluation prior to decision making Description of Procedure: After informed consent, the patient was brought to the cardiac catheterization lab. The procedure site was prepped and draped in usual manner. The patient was premedicated with versed 0.5mg. 10mL lidocaine was injected into the right lamonte in. Next using the Seldinger technique, the 6 yi sheath was inserted into the right femoral artery. Due to vessel tortuosity, a Versicor wire was used to navigate the aorta and Amplatz wire to help with engaging the coronaries. Next using the JL4 and JR4, selective angiography of the left and right coronary arteries were obtained. The AV was not crossed due to known severe . Next using ultrasound guidance, a 7 yi sheath was inserted into the right femoral vein. The PA catheter was advanced and pressures were obtained. Next all equipment was removed and hemostasis was obtained by manual compression. Findings: Anatomy/Hemodynamics: Left main:ostial 20% LAD:luminal irregularities Diagonal:luminal irregularities Circumflex:prox 100% LAYAWAY CLERK with left-left collaterals RCA:ostial 60%, mid 95% focal stenosis PDA:luminal irregularities PLV:luminal irregularities AV was not crossed RHC: Wedge 13/14 (11) PA pressure: 37/14 (25) RV: 37/1, EDP 7 RA 7/4, 4 Estimated blood loss<10 mL. Specimen: none Grafts/implants: none Complications: none Assessment: Severe low-flow/low-gradient : heavily calcified valve, peak velocity 3 m/s, mean gradient 20mmHg, BERNICE 0.7, DI 0.2 in setting of EF 35% NSTEMI/CAD: ostial and mid RCA which are amenable to PCI and LAYAWAY CLERK of Cx CKD Cardiomyopathy: likely mixed Acute systolic CHF COPD Dementia Plan: -I spoke with the pt's son, Nic, extensively about the findings and options. He is concerned as the pt has been having progressive decline in his memory and decision making ability. He is also concerned about the pt's recovery and comorbidities. His options include AVR/CABG or PCI/TAVR. Both the son and I a gree that he would be a poor surgical candidate. I did offer having a surgeon see him here but he does not think the pt would want surgery and the pt is not able to make decisions himself. -I think he can be optimized and treated medically for his NSTEMI for now and referred for urgent TAVR eval. If he has recurrent symptoms, we can arrange for transfer to [facility] for inpt TAVR eval. -will d/c lasix for now as pt is euvolemic and has underlying CKD CHRISTEL VEGA Nov 22, 2018 08:52
[2018-11-22] MEDS: ACETYLCYSTEINE 600 MG CAP PO SCH ×2 (09:00→21:07)
[2018-11-22] MEDS: LORATADINE 10 MG TAB PO SCH (09:00)
[2018-11-22] MEDS: FINASTERIDE 5 MG TAB PO SCH (09:00)
[2018-11-22] MEDS: ASPIRIN (EC) 81 MG TAB PO SCH (09:00)
--- NOTE | 2018-11-22 10:18 | NUR ---
Dr. Vega was called to report pt's B/P is 66/51 and HR of 82. Order recevied for NS bolus 250 mLs now.
[2018-11-22] MEDS ORDERED: SOD CHLORIDE 0.9% 250 ML IV ONE (10:30)
[2018-11-22] MEDS: HOLD all METFORMIN and METFORMIN CONTAINING medications for 48 hours post procedure. Chec XX SCH (10:50)
--- NOTE | 2018-11-22 10:58 | NUR ---
PACU Time: 6126 to 1058.
--- NOTE | 2018-11-22 11:11 | NUR ---
PATIENT RETURNED FROM PROCEDURE, REPORT RECEIVED FROM AL, PT IN BED ALERT AND ORIENTED TO NAME AND PLACE, BP 92/53, INSTRUCTED PATIENT TO KEEP RIGHT LEG STRAIGHT, PT KEPT IN SUPINE POSITION, NO SHORT OF BREATH, RIGHT GROIN WITH PUNCTURE SITE DRESSING INTACT, NO HEMATOMA NOTED.
[2018-11-22] MEDS: METOPROLOL 25 MG TAB PO SCH (11:28)
[2018-11-22] MEDS: FLUTICASONE/VILANTEROL 100-25 INH SCH (11:33)
--- NOTE | 2018-11-22 11:43 | PN ---
DATE: 11/22/2018 SUBJECTIVE: The patient is scheduled for cardiac catheterization today. The patient overnight was n oted to be stable. The patient's shortness of breath has markedly improved. No other events noted. No hemoptysis, hematemesis or hematochezia. OBJECTIVE: VITAL SIGNS: Blood pressure is 92/43, respiration 18, pulse 84, temperature 98.4. HEENT: Head is normocephalic. NECK: Supple. HEART: Regular rate. LUNGS: Show diminished breath sounds at the base. ABDOMEN: Soft, nontender to palpation without rebound or guarding. EXTREMITIES: Negative for clubbing, cyanosis, no edema. DERMATOLOGIC: No rashes. MUSCULOSKELETAL: No joint effusions. NEUROLOGIC: No change in exam. MEDICATIONS: The patient's medications have been reviewed. LABORATORY DATA: Shows a sodium 136, potassium 4.4, chloride 96, BUN 85, creatinine 1.62. White cou nt 11.6, hemoglobin 9.3, platelet count is 179. The patient's urinalysis shows FENa less than 1%. IMAGING: Renal ultrasound was reviewed. ASSESSMENT AND PLAN: 1. Nonoliguric acute kidney injury on top of chronic kidney disease with previous baseline creatinin e of 1.1 to 1.2 mg/dL. Etiology of acute kidney injury is secondary to hemodynamics, diuretics, poss ible cardiorenal syndrome. The patient's renal function has declined in the last 24 hours, likely du e to underlying diuretic therapy. Plan at this point is to hold diuretics to enable fluid to mobiliz e. Would otherwise continue current treatment plan. The patient is pending possible cardiac cathete rization. The patient would be at moderate risk for contrast-associated nephropathy in the setting o f acute kidney injury, CHF and diabetes. Monitor closely. Will start the patient on Mucomyst. Cont inue supportive care, renally dose meds, avoid nephrotoxins. 2. Anemia. Monitor hemoglobin and hematocrit levels. 3. Mineral bone disorder. Monitor calcium and phosphorus levels. 4. Acute on chronic heart failure. The patient is decompensated, clinically improving. Will hold d iuretic therapy as the patient is in worsening renal function as stated above. Follow up with cardio logy. 5. Non-ST elevation myocardial infarction. Continue medical management. The patient is pending car diac catheterization. 6. Hypertension. Continue current blood pressure regimen. 7. Aortic stenosis. Continue to monitor. Follow up with cardiology. 8. Diabetes. Continue current insulin regimen. 9. Hypomagnesemia. Continue to monitor and replete. 10. Hypertension. Will hold diuretic therapy at this time. Continue to hold blood pressure medicat ions. Dictated By: PADILLA MCNALLY DO NR/NTS Conf#: [id number] DID#: [id number] CC: MERVAT FERRO MD;*End*
--- NOTE | 2018-11-22 17:27 | CONS ---
Date/Time of Note Date/Time of Note DATE: 11/22/18 TIME: 17:21 Assessment/Plan Assessment/Plan Hospital Course Assessment: Acute on chronic systolic and diastolic heart failure - LVEF 30-35% with global hypokinesis, mild LVH with grade 2 diastolic dysfunction; improved with diuresis, now RAP 4 and PCWP 11 on cardiac catheterization Severe aortic stenosis - calculated BERNICE 0.67 cm2, DI 0.21 NSTEMI - 2v CAD with PROTOTYPE MODEL MAKER of proximal circumflex and 95% mid RCA Acute kidney injury History of hypertension Dyslipidemia Diabetes mellitus Chronic obstructive pulmonary disease Recommendations: -discontinue Lasix -discontinue lisinopril and metoprolol due to borderline blood pressures -continue aspirin 81mg daily -continue statin Dr. Vega had discussion with son regarding PCI/TAVR versus AVR/CABG. Patient felt to be high surgical risk and patient and his son would prefer PCI/TAVR. Recommend outpatient TAVR work up. Patient will need to follow up with his primary care provider for referral. Result Diagram: 11/21/18 0809 11/22/18 0529 Results 24hrs Laboratory Tests Test 11/21/18 21:07 11/22/18 05:29 11/22/18 09:28 11/22/18 11:37 Bedside Glucose 172 121 127 Sodium Level 136 Potassium Level 4.4 Chloride Level 96 L Carbon Dioxide 33 H Level Anion Gap 7 Blood Urea 85 H Nitrogen Creatinine 1.62 H Est Glomerular Filtrat Rate mL/min Glucose Level 111 Calcium Level 7.5 L Phosphorus Level 4.0 Magnesium Level 2.0 Test 11/22/18 13:54 Bedside Glucose 287 H Consultation Date/Type/Reason Admit Date/Time Nov 19, 2018 at 02:06 Initial Consult Date Type of Consult Cardiology 24 HR Interval Summary Free Text/Dictation Status post cardiac catheterization today. Fount to have 2v CAD with PROTOTYPE MODEL MAKER of proximal circumflex and 95% mid RCA. No PCI performed. Dr. Vega had discussion with son regarding PCI/TAVR versus AVR/CABG. Patient felt to be high surgical risk and patient and his son would prefer PCI/TAVR. Patient doing well post-procedure. Right femoral artery access site intact. Detailed Summary Additional Comments 14 point review of systems without changes. Exam/Review of Systems Vital Signs Vitals Vital Signs Date Temp Pulse Resp B/P (MAP) Pulse Ox O2 O2 Flow FiO2 Time Delivery Rate 11/22/18 97.7 94 19 100/50 97 Nasal 3.0 17:17 (67) Cannula Intake and Output 11/21/18 11/21/18 11/22/18 1515:00 23:00 07:00 IntakeIntake Total 700 ml 240 ml 300 ml OutputOutput Total 2182 ml 323 ml 933 ml BalanceBalance -1482 ml -83 ml -633 ml Exam Constitutional: alert, well developed Psych: no complaints, nl mood/affect Head: normocephalic, atraumatic Eyes: nl conjunctiva, nl lids ENMT: nl external ears & nose, nl nasal mucosa & septum Neck: supple, non-tender, jvd Respiratory: diminished breath sounds; No wheezing Cardiovascular: systolic murmur Gastrointestinal: soft, non-tender Musculoskeletal: nl extremities to inspection Extremities: No cyanosis, No clubbing, No edema Medications Medications Current Medications IV Flush (NS 3 ml) 3 ml PER PROTOCOL IV ; Start 11/19/18 at 05:30 Ondansetron HCl (Zofran Inj) 4 mg Q6H PRN IV NAUSEA AND/OR VOMITING; Start at 05:30 Nitroglycerin (Nitroglycerin (Sl Tab) 0.4 Mg) 1 tab Q5M PRN SL CHEST PAIN; Start 11/19/18 at 05:30 Acetaminophen (Tylenol Tab) 650 mg Q6H PRN PO PAIN LEVEL 1-3 OR FEVER; Start 11/19/18 at 05:30 Albuterol/ Ipratropium (Duoneb) 3 ml Q2H RESP THERAPY PRN HHN SHORTNESS OF BREATH; Start 11/19/18 at 05:30 Albuterol (Ventolin Hfa) 2 puff Q4H RESP THERAPY PRN INH WHEEZING AND SOB; S tart 11/19/18 at 05:30 Lisinopril (Zestril) 20 mg DAILY PO Last administered on 11/20/18at 08:30; A dmin Dose 20 MG; Start 11/19/18 at 09:00; Status Hold Trazodone HCl (Desyrel) 50 mg QHS PO Last administered on 11/21/18at 21:10; Admin Dose 50 MG; Start 11/19/18 at 21:00 Atorvastatin Calcium (Lipitor) 10 mg DAILY@21 PO Last administered on 11/21/18at 21:10; Admin Dose 10 MG; Start 11/19/18 at 21:00 Enoxaparin Sodium (Lovenox) 50 mg Q24H SC Last administered on 11/21/18at 06:17; Admin Dose 50 MG; Start 11/19/18 at 06:00 Miscellaneous Information 1 ea NOTE XX ; Start 11/19/18 at 06:00 Glucose (Glutose) 15 gm Q15M PRN PO DECREASED GLUCOSE; Start 11/19/18 at 06:00 Glucose (Glutose) 22.5 gm Q15M PRN PO DECREASED GLUCOSE; Start 11/19/18 at 06:00 Dextrose (D50w Syringe) 25 ml Q15M PRN IV DECREASED GLUCOSE; Start 11/19/18 at 06:00 Dextrose (D50w Syringe) 50 ml Q15M PRN IV DECREASED GLUCOSE; Start 11/19/18 at 06:00 Glucagon (Glucagen) 1 mg Q15M PRN IM DECREASED GLUCOSE; Start 11/19/18 at 06:00 Glucose (Glutose) 15 gm Q15M PRN BUCCAL DECREASED GLUCOSE; Start 11/19/18 at 06:00 Alfuzosin HCl (Uroxatral) 10 mg HS PO Last administered on 11/21/18at 22:16; Admin Dose 10 MG; Start 11/19/18 at 21:00 Finasteride (Proscar) 5 mg DAILY PO Last administered on 11/21/18at 08:33; Admin Dose 5 MG; Start 11/19/18 at 11:30 Fluticasone/ Vilanterol (Breo Ellipta 100-25 Mcg Inh) 1 inh DAILY INH Last administered on 11/22/18at 11:33; Admin Dose 1 INH; Start 11/19/18 at 12:00 Diagnostic Test (Pha) (Accu-Chek) 1 ea 2 HOURS AFTER MEALS XX Last administered on 11/22/18at 13:55; Admin Dose 1 EA; Start 11/19/18 at 13:50 Diagnostic Test (Pha) (Accu-Chek) 1 ea AC MEALS XX Last administered on 11/22/18at 11:38; Admin Dose 1 EA; Start 11/19/18 at 17:25 Aspirin (Halfprin) 81 mg DAILY PO Last administered on 11/21/18at 08:32; Admin Dose 81 MG; Start 11/20/18 at 09:00 Metoprolol Tartrate (Lopressor) 25 mg BID PO Last administered on 11/21/18at 08:33; Admin Dose 25 MG; Start 11/20/18 at 21:00 Insulin Aspart (Novolog Insulin Pen) (Adult SC Insulin - Mild Algorithm)... AC M EALS AND BEDTIME SC Last administered on 11/21/18at 11:34; Admin Dose 1 UNIT; Start 11/20/18 at 21:00 Loratadine (Claritin) 10 mg DAILY PO Last administered on 11/21/18at 11:30; Admin Dose 10 MG; Start 11/21/18 at 11:30 Acetylcysteine (Nac) 600 mg BID PO ; Start 11/22/18 at 09:00 Miscellaneous Information (* Miscellaneous Pharmacy Order) HOLD all METFORMIN ... ONCE XX ; Start 11/22/18 at 09:00; Stop 11/24/18 at 08:59 KIKE RIBEIRO MD Nov 22, 2018 17:27
--- NOTE | 2018-11-22 18:33 | NUR ---
EOSS: alert and oriented, no short of breath, o2 at 3L NC saturation 97%, dressing to rithg groin puncture site intact, no bleeding, not swollen, no hematoma, both lower extremities, warm to touch. no significant changes, continue with current plan of care.
[2018-11-22] MEDS: ALFUZOSIN (SR) 10 MG TAB PO SCH (21:07)
[2018-11-22] MEDS: traZODone 50 MG TAB PO SCH (21:08)
[2018-11-22] MEDS: ATORVASTATIN 10 MG TAB PO SCH (21:08)
[2018-11-23] VITALS (11 sets, daily range): BP systolic 91–136; BP diastolic 46–63; PULSE 85–114; RESP 18
[2018-11-23] MEDS: ENOXAPARIN 60 MG/0.6 ML SYG SC SCH (05:48)
[2018-11-23] MEDS: Insulin NOVOLOG SS MILD Algorithm (SS with meals and bedtime) SC SCH ×4 (07:25→21:06)
--- NOTE | 2018-11-23 07:41 | NUR ---
EOSS; Patient awake in bed , no respiratory distress, bed alarm on. Bedside report given to AM nurse.
[2018-11-23] MEDS: ACCU-CHEK XX SCH ×6 (07:50→19:55)
[2018-11-23] MEDS: ASPIRIN (EC) 81 MG TAB PO SCH (08:11)
[2018-11-23] MEDS: LORATADINE 10 MG TAB PO SCH (08:11)
[2018-11-23] MEDS: FINASTERIDE 5 MG TAB PO SCH (08:11)
[2018-11-23] MEDS: ACETYLCYSTEINE 600 MG CAP PO SCH ×2 (08:11→20:53)
[2018-11-23] MEDS: HOLD all METFORMIN and METFORMIN CONTAINING medications for 48 hours post procedure. Chec XX SCH (08:12)
[2018-11-23] MEDS: FLUTICASONE/VILANTEROL 100-25 INH SCH (08:12)
--- NOTE | 2018-11-23 09:58 | PN ---
DATE: 11/23/2018 SUBJECTIVE: The patient had a cardiac catheterization yesterday. The patient overnight has been s table. No other events noted. OBJECTIVE: VITAL SIGNS: Blood pressure is 114/54, respiration 18, pulse 109, temperature 97.7. HEENT: Head is normocephalic. NECK: Supple. HEART: Regular rate. LUNGS: Show diminished breath sounds at base. ABDOMEN: Soft, nontender to palpation without rebound or guarding. EXTREMITIES: Negative for clubbing, cyanosis, no edema. DERMATOLOGIC: No rashes. MUSCULOSKELETAL: No joint effusion. NEUROLOGIC: No change in exam. MEDICATIONS: Reviewed. LABORATORY DATA: Shows sodium 140, BUN 65, creatinine 1.36, calcium 7.9. White count 8.1, hemoglobi n 9.2, platelet count is 179. ASSESSMENT AND PLAN: 1. Nonoliguric acute kidney injury on top of chronic kidney disease with baseline creatinine 1.1 to 1.2 mg/dL. Etiology of acute kidney injury is secondary to hemodynamics, diuretics. The patient's r enal function has been improving. Monitor closely. Status post cardiac catheterization for any sign s of contrast-associated nephropathy. Would otherwise continue current treatment plan, supportive ca re, renally dose all meds. 2. Anemia. Continue to monitor hemoglobin and hematocrit levels. 3. Mineral bone disorder, monitor calcium and phosphorus levels. 4. Acute on chronic heart failure. The patient is compensated. Continue to monitor. Continue to h old diuretic therapy. 5. Non-ST elevation myocardial infarction. The patient is status post cardiac catheterization. Con tinue medical management. 6. Hypertension. Continue blood pressure regimen. 7. Severe aortic stenosis. Continue to monitor. Follow up with cardiology. 8. Diabetes. Continue current insulin regimen. 9. Hypertension. Continue current blood pressure regimen. Dictated By: PADILLA MCNALLY DO NR/NTS Conf#: [id number] DID#: [id number] CC: MERVAT FERRO MD;*End*
[2018-11-23] MEDS ORDERED: METHYLPREDNISOLONE 125 MG INJ IV ONE (10:00)
--- NOTE | 2018-11-23 10:03 | NUR ---
Nurses notes: Pt voided 300ml yellow urine. bladder scan done 80ml residual.
--- NOTE | 2018-11-23 10:03 | PN ---
DATE: 11/22/2018 SUBJECTIVE: No new complaints, patient plans for heart catheterization today. PHYSICAL EXAMINATION VITAL SIGNS: Blood pressure 109/56, respirations 16, pulse 90, temperature 97.9. GENERAL: Alert and oriented, no distress, elderly male. HEENT: Head is normocephalic. Pupils equal and reactive. NECK: Supple. CHEST: Clear to auscultation with diminished breath sounds. CARDIOVASCULAR: Heart sounds S1 and S2 questionable systolic murmur. EXTREMITIES: Lower extremity, no edema. LABORATORY VALUES: Creatinine today is 1.6, calcium 7.5, phosphorus and mag normal. Leukocytosis, i mproved to 11,000. Continues to have a hypochromic microcytic anemia. Platelet count is normal. No new imaging studies to report. IMPRESSION: An 83-year-old male who had presented to the Emergency Room with shortness of breath, ma naged as follows: 1. Acute respiratory failure secondary to #2 and 3, resolved. 2. Hsf-EL-syilarng myocardial infarction. Plan for cardiac catheterization today, continued on aspi rin and Lovenox. 3. Congestive heart failure exacerbation, status post congestive heart failure exacerbation, current ly compensated. Lasix discontinued. 4. Diabetes mellitus type 2 with A1c 6.0 with good in-house control on sliding scale only and diabet ic diet. 5. Lactic acidosis, resolved. 6. Chronic obstructive pulmonary disease with status post mild exacerbation, resolved. 7. Acute transaminitis likely secondary to hepatic hypoperfusion with levels that are trending down. 8. Chronic hypochromic microcytic anemia, ongoing IV iron replacement therapy. 9. Hypertension with good in-house control. 10. Benign prostatic hypertrophy, stable on home alpha viji. 11. Dyslipidemia, on statin. 12. Acute kidney injury on chronic kidney disease, status post unremarkable renal ultrasound, baseli ne creatinine of 1.2 to 1.3. The patient is improving. 13. Chronic cardiomyopathy with EF of 30% to 35% on beta viji therapy. 14. Severe aortic stenosis with moderate to severe aortic regurgitation. Plan is to see if the carly ent is going to require surgical repair during catheterization today. 15. DO NOT RESUSCITATE/DO NOT INTUBATE. DISPOSITION: Cardiac catheterization today, continue supportive care. Dictated By: SHRUTHI MELENDREZ MD, BA/MARIA A Conf#: [id number] DID#: [id number] CC: MERVAT FERRO MD;*End*
[2018-11-23] MEDS ORDERED: NITR0.4T32 SL (10:04)
[2018-11-23] MEDS ORDERED: IPRA3AMP29 HHN (10:04)
[2018-11-23] MEDS ORDERED: ASPI-1044 PO (10:04)
[2018-11-23] MEDS ORDERED: PRED10TA PO (10:04)
[2018-11-23] MEDS ORDERED: LORA10TA3 PO (10:04)
--- NOTE | 2018-11-23 10:26 | DS ---
Date/Time of Note Date/Time of Note DATE: 11/23/18 TIME: 10:10 Discharge Summary Admission/Discharge Info Admit Date/Time Nov 19, 2018 at 02:06 Discharge Date/Time Discharge Diagnosis 83-year-old male with a history of hypertension, diabetes, dyslipidemia, COPD, BPH, moderate aortic stenosis, CHF who presented to ER complaining of shortness of breath. Symptoms started a few hours prior to arrival to the ER. 1. Acute on chronic respiratory failure 2/2 #2 and #3: patient on 2L O2 at home 2. Acute on chronic systolic and diastolic heart failure - -LVEF 30-35% with global hypokinesis, mild LVH with grade 2 diastolic dysfunction; improved with diuresis, now RAP 4 and PCWP 11 on cardiac catheterization 3. Severe aortic stenosis - calculated BERNICE 0.67 cm2, DI 0.21 4. NSTEMI - 2v CAD with SEARCH PLANNER of proximal circumflex and 95% mid RCA 5. Diabetes mellitus type 2 -Hemoglobin A1c 6.0 6. CAD -with ostial and mid RCA which are amenable to PCI and SEARCH PLANNER of Cx on Cath 7. Chronic COPD with ?mild exacerbatio 8. Transaminitis: Acute, statin ?Fatty liver, ?Hepatic hypoperfusion: levels trended down 9. Remote tobacco user, quit 15 years ago 10. Dyslipidemia on statin 11. BPH 12. Hypertension -borderline hypotensive, 13. Chronic hypochromic microcytic anemia secondary to iron deficiency rule out chronic GI blood loss -Intravenous iron replacement therapy for 5 days 14. Lactic acidosis: resolved 15. MIREYA on Chronic kidney disease: improved 16. Chronic cardiomyopathy with ejection fraction 30-35% 17. DNR/ DNI . Patient Condition: Stable Consults Cardiology: Catrina / lauren Nephrology: Whit Procedures Procedure Date: Nov 22, 2018 Preoperative Diagnosis NSTEMI,. severe Postoperative Diagnosis same Operation/Procedure Performed see details Surgeon see signature line Psychology Lecturer none Anesthesia Type: moderate sedation Estimated Blood Loss: minimal Transfusion none Specimen none Grafts/Implants none Complications none Procedure Description Procedure Date:11/22/18 Web Site Designer/surgeon:Dav Vega MD. Procedures Performed: 1)Left heart catheterization with selective left and right coronary angiography. 2)Right heart catheterization Pre-operative Diagnosis:NSTEMI, low-flow/low-gradient severe , cardiomyopathy Post-operative Diagnosis:same . Hospital Course Very pleasant 83-year-old male who was admitted with shortness of breath and was managed as above. He was treated initially with diuresis and full dose anticoagulation until he was able to undergo cardiac catheterization. At this time he does have multivessel coronary artery disease and severe aortic stenosis and is recommended for outpatient total aortic valve replacement and PCI which was family's choice as opposed to CABG. Dr. Vega had discussion with son regarding PCI/TAVR versus AVR/CABG. Patient felt to be high surgical risk and patient and his son would prefer PCI/TAVR. Recommend outpatient TAVR work up. Patient will need to follow up with his primary care provider for referral. He did have wheezing on exam and as such was treated for mild COPD exacerbation with steroids as well as empiric antibiotics. Is been evaluated in detail today and is stable for discharge. Was also seen by physical therapy inpatient. He does have home oxygen at home and home health physical therapy, but the family reports that he is very noncompliant with these. All the same was counseled on the need to use his medications and cooperative with therapy. He was verbalized understanding. Comorbidities were also aggressively managed as per Med records. Patient at this time has been evaluated and examined in detail and is assessed to be in stable condition and ready for discharge. . Home Meds Reported Medications Lovastatin* (Lovastatin*) 20 Mg Tablet, 20 MG PO HS, TAB 07/15/17 Albuterol Sulfate* (Proair HFA*) 8.5 Gm Hfa.aer.ad, 2 PUFF INH Q4H PRN for WHEEZING AND SOB, #1 INHALER 07/15/17 Terazosin Hcl* (Terazosin Hcl*) 10 Mg Capsule, 10 MG PO HS, CAP 07/15/17 Glipizide* (Glipizide*) 5 Mg Tablet, 5 MG PO AC BREAKFAST, TAB 07/15/17 Trazodone Hcl* (Trazodone Hcl*) 50 Mg Tablet, 50 MG PO QHS, #30 TAB 07/15/17 Lisinopril* (Lisinopril*) 20 Mg Tablet, 20 MG PO DAILY, #30 TAB 07/15/17 Budesonide-Formoterol Fumarate* (Symbicort*) 80-4.5 Inha, 2 PUFFS INHALATION BID, #1 EACH 07/15/17 Follow-up Plan Patient will followup with Dr Wolf as soon as possible for refferal to Cardiothoracic surgery for PCI / TAVR. I called [phone] and left this information on 11/23/18 @ 10.12 am. . Primary Care Provider Not On Staff Doctor Time spent on discharge: > 30 minutes Pending Labs Laboratory Tests Test 11/22/18 11:37 11/22/18 13:54 11/22/18 17:16 11/22/18 21:02 Bedside 127 287 169 162 Glucose mg/dL (70-220) mg/dL (70-220) mg/dL (70-220) mg/dL (70-220) Test 11/23/18 05:41 11/23/18 07:48 White Blood 8.1 Count 10^3/ul (4.8-10 .8) Red Blood 4.31 Count 10^6/ul (4.70-6 .10) Hemoglobin 9.2 g/dl (14.0-18.0 ) Hematocrit 30.5 % (42.0-52.0) Mean 70.8 Corpuscular fl (82.0-101.0) Volume Mean 21.3 Corpuscular pg (29.0-33.0) Hemoglobin Mean 30.2 Corpuscular g/dl (32.0-37.0 Hemoglobin Conc ) ent Red Cell 15.8 Distribution % (11.5-14.5) Width Platelet Count 179 10^3/UL (140-41 5) Mean Platelet 10.4 Volume fl (7.4-10.4) Immature 0.500 Granulocytes % % (0.001-0.429) Neutrophils % 75.0 % (39.0-77.0) Lymphocytes % 17.0 % (15.0-51.0) Monocytes % 6.9 % (0.0-11.0) Eosinophils % 0.5 % (0.0-7.0) Basophils % 0.1 % (0.0-2.0) Nucleated Red 0.0 Blood Cells % /100WBC (0.0-0. 0) Immature 0.040 Granulocytes # 10^3/ul (0.0-0. 031) Neutrophils # 6.1 10^3/ul (1.6-7. 5) Lymphocytes # 1.4 10^3/ul (0.8-2. 9) Monocytes # 0.6 10^3/ul (0.3-0. 9) Eosinophils # 0.0 10^3/ul (0.0-0. 5) Basophils # 0.0 10^3/ul (0.0-0. 1) Nucleated Red 0.0 Blood Cells # 10^3/ul (0.0-0. 0) Sodium Level 140 mmol/L (135-144 ) Potassium 4.8 Level mmol/L (3.5-5.1 ) Chloride Level 97 mmol/L (97-110) Carbon Dioxide 33 Level mmol/L (21-31) Anion Gap 10 (5-13) Blood Urea 65 mg/dl (7-20) Nitrogen Creatinine 1.36 mg/dl (0.61-1.2 4) Est Glomerular mL/min (>60) Filtrat Rate mL/min Glucose Level 134 mg/dl (70-220) Calcium Level 7.9 mg/dl (8.4-10.2 ) Phosphorus 3.7 Level mg/dl (2.5-4.9) Magnesium 2.1 Level mg/dl (1.7-2.5) Bedside 122 Glucose mg/dL (70-220) SHRUTHI MELENDREZ. Nov 23, 2018 10:21
--- NOTE | 2018-11-23 10:26 | PDOCDIS ---
Discharge Instructions DIAGNOSIS Discharge Diagnosis 83-year-old male with a history of hypertension, diabetes, dyslipidemia, COPD, BPH, moderate aortic stenosis, CHF who presented to ER complaining of shortness of breath. Symptoms started a few hours prior to arrival to the ER. 1. Acute on chronic respiratory failure 2/2 #2 and #3: patient on 2L O2 at home 2. Acute on chronic systolic and diastolic heart failure - -LVEF 30-35% with global hypokinesis, mild LVH with grade 2 diastolic dysfunction; improved with diuresis, now RAP 4 and PCWP 11 on cardiac catheterization 3. Severe aortic stenosis - calculated BERNICE 0.67 cm2, DI 0.21 4. NSTEMI - 2v CAD with DIRECTOR OF INTELLIGENCE of proximal circumflex and 95% mid RCA 5. Diabetes mellitus type 2 -Hemoglobin A1c 6.0 6. CAD -with ostial and mid RCA which are amenable to PCI and DIRECTOR OF INTELLIGENCE of Cx on Cath 7. Chronic COPD with ?mild exacerbatio 8. Transaminitis: Acute, statin ?Fatty liver, ?Hepatic hypoperfusion: levels trended down 9. Remote tobacco user, quit 15 years ago 10. Dyslipidemia on statin 11. BPH 12. Hypertension -borderline hypotensive, 13. Chronic hypochromic microcytic anemia secondary to iron deficiency rule out chronic GI blood loss -Intravenous iron replacement therapy for 5 days 14. Lactic acidosis: resolved 15. MIREYA on Chronic kidney disease: improved 16. Chronic cardiomyopathy with ejection fraction 30-35% 17. DNR/ DNI . CONDITION [id number] Patient Condition: Axopy3e Stable HOME CARE INSTRUCTIONS: [id number] Diet Instructions: [id number] Reduced Calorie ACTIVITY: [id number] Activity Restrictions: Jffgy8m Slowly Increase Activity Rest between Activity FOLLOW UP/APPOINTMENTS Follow-up Plan Patient will followup with Dr Wolf as soon as possible for refferal to Cardiothoracic surgery for PCI / TAVR. I called [phone] and left this information on 11/23/18 @ 10.12 am. . SHRUTHI MELENDREZ Nov 23, 2018 10:26
[2018-11-23] MEDS ORDERED: LEVO500T10 PO (10:29)
[2018-11-23] MEDS ORDERED: CEFEPIME 1GM/50 ML (PMX) 50 ML IVPB ONE (10:30)
--- NOTE | 2018-11-23 11:40 | NUR ---
CM NOTES: CM ORDERS FAXED TO [facility] ([phone]). MARY MILTON, RNCM [id number]
--- NOTE | 2018-11-23 13:48 | NUR ---
Nurses notes: Pt with 2 consecutive blood sugar above 180 2 hrs after meal. Texted Dr Blevins to notify. Addendum: 11/23/18 at 1525 by ALAN MCGINNIS RN Dr Blevins replied likely due to steroids. No new order.
--- NOTE | 2018-11-23 15:30 | NUR ---
Report received from Genoveva RN, pt discharged but waiting for oxygen delivery, alert and oriented and denies pain or SOB, anxious to go home
--- NOTE | 2018-11-23 15:43 | CONS ---
Date/Time of Note Date/Time of Note DATE: 11/23/18 TIME: 15:42 Assessment/Plan Assessment/Plan Hospital Course Assessment: Acute on chronic systolic and diastolic heart failure - LVEF 30-35% with global hypokinesis, mild LVH with grade 2 diastolic dysfunction; improved with diuresis, now RAP 4 and PCWP 11 on cardiac catheterization Severe aortic stenosis - calculated BERNICE 0.67 cm2, DI 0.21 NSTEMI - 2v CAD with MONUMENT MASON of proximal circumflex and 95% mid RCA Acute kidney injury History of hypertension Dyslipidemia Diabetes mellitus Chronic obstructive pulmonary disease Recommendations: -off Lasix -off lisinopril and metoprolol due to borderline blood pressures -continue aspirin 81mg daily -continue statin Dr. Vega had discussion with son regarding PCI/TAVR versus AVR/CABG. P atient felt to be high surgical risk and patient and his son would prefer PCI/TAVR. Recommend outpatient TAVR work up. Patient will need to follow up with his primary care provider for referral. Result Diagram: 11/23/18 0541 11/23/18 0541 Results 24hrs Laboratory Tests Test 11/22/18 17:16 11/22/18 21:02 11/23/18 05:41 11/23/18 07:48 Bedside Glucose 169 162 122 White Blood 8.1 # Count Red Blood Count 4.31 L Hemoglobin 9.2 L Hematocrit 30.5 L Mean Corpuscular 70.8 L Volume Mean Corpuscular 21.3 L Hemoglobin Mean Corpuscular 30.2 L Hemoglobin Laura nt Red Cell 15.8 H Distribution Width Platelet Count 179 Mean Platelet 10.4 Volume Immature 0.500 H Granulocytes % Neutrophils % 75.0 Lymphocytes % 17.0 Monocytes % 6.9 Eosinophils % 0.5 Basophils % 0.1 Nucleated Red 0.0 Blood Cells % Immature 0.040 H Granulocytes # Neutrophils # 6.1 Lymphocytes # 1.4 Monocytes # 0.6 Eosinophils # 0.0 Basophils # 0.0 Nucleated Red 0.0 Blood Cells # Sodium Level 140 Potassium Level 4.8 Chloride Level 97 Carbon Dioxide 33 H Level Anion Gap 10 Blood Urea 65 H Nitrogen Creatinine 1.36 H Est Glomerular Filtrat Rate mL/min Glucose Level 134 Calcium Level 7.9 L Phosphorus Level 3.7 Magnesium Level 2.1 Test 11/23/18 10:00 11/23/18 11:22 11/23/18 13:46 Bedside Glucose 182 171 249 H Consultation Date/Type/Reason Admit Date/Time Nov 19, 2018 at 02:06 Initial Consult Date Type of Consult Cardiology 24 HR Interval Summary Free Text/Dictation No acute events. Renal function stable. Detailed Summary Additional Comments 14 point review of systems without changes. Exam/Review of Systems Vital Signs Vitals Vital Signs Date Temp Pulse Resp B/P (MAP) Pulse Ox O2 O2 Flow FiO2 Time Delivery Rate 11/23/18 98.2 111 18 134/63 90 Nasal 15:05 (86) Cannula 11/23/18 2.0 08:00 Intake and Output 11/22/18 11/22/18 11/23/18 1515:00 23:00 07:00 IntakeIntake Total 560 ml OutputOutput Total 850 ml BalanceBalance -290 ml Exam Constitutional: alert, well developed Psych: no complaints, nl mood/affect Head: normocephalic, atraumatic Eyes: nl conjunctiva, nl lids ENMT: nl external ears & nose, nl nasal mucosa & septum Neck: supple, non-tender, jvd Respiratory: diminished breath sounds; No wheezing Cardiovascular: systolic murmur Gastrointestinal: soft, non-tender Musculoskeletal: nl extremities to inspection Extremities: No cyanosis, No clubbing, No edema Medications Medications Current Medications IV Flush (NS 3 ml) 3 ml PER PROTOCOL IV ; Start 11/19/18 at 05:30 Ondansetron HCl (Zofran Inj) 4 mg Q6H PRN IV NAUSEA AND/OR VOMITING; Start 11/19/18 at 05:30 Nitroglycerin (Nitroglycerin (Sl Tab) 0.4 Mg) 1 tab Q5M PRN SL CHEST PAIN; Start 11/19/18 at 05:30 Acetaminophen (Tylenol Tab) 650 mg Q6H PRN PO PAIN LEVEL 1-3 OR FEVER; Start 11/19/18 at 05:30 Albuterol/ Ipratropium (Duoneb) 3 ml Q2H RESP THERAPY PRN HHN SHORTNESS OF BREATH; Start 11/19/18 at 05:30 Albuterol (Ventolin Hfa) 2 puff Q4H RESP THERAPY PRN INH WHEEZING AND SOB; Start 11/19/18 at 05:30 Trazodone HCl (Desyrel) 50 mg QHS PO Last administered on 11/22/18at 21:08; Admin Dose 50 MG; Start 11/19/18 at 21:00 Atorvastatin Calcium (Lipitor) 10 mg DAILY@21 PO Last administered on 11/22/18at 21:08; Admin Dose 10 MG; Start 11/19/18 at 21:00 Enoxaparin Sodium (Lovenox) 50 mg Q24H SC Last administered on 11/23/18at 05:48; Admin Dose 50 MG; Start 11/19/18 at 06:00 Miscellaneous Information 1 ea NOTE XX ; Start 11/19/18 at 06:00 Glucose (Glutose) 15 gm Q15M PRN PO DECREASED GLUCOSE; Start 11/19/18 at 06:00 Glucose (Glutose) 22.5 gm Q15M PRN PO DECREASED GLUCOSE; Start 11/19/18 at 06:00 Dextrose (D50w Syringe) 25 ml Q15M PRN IV DECREASED GLUCOSE; Start 11/19/18 at 06:00 Dextrose (D50w Syringe) 50 ml Q15M PRN IV DECREASED GLUCOSE; Start 11/19/18 at 06:00 Glucagon (Glucagen) 1 mg Q15M PRN IM DECREASED GLUCOSE; Start 11/19/18 at 06:00 Glucose (Glutose) 15 gm Q15M PRN BUCCAL DECREASED GLUCOSE; Start 11/19/18 at 06:00 Alfuzosin HCl (Uroxatral) 10 mg HS PO Last administered on 11/22/18at 21:07; Admin Dose 10 MG; Start 11/19/18 at 21:00 Finasteride (Proscar) 5 mg DAILY PO Last administered on 11/23/18at 08:11; Admin Dose 5 MG; Start 11/19/18 at 11:30 Fluticasone/ Vilanterol (Breo Ellipta 100-25 Mcg Inh) 1 inh DAILY INH Last administered on 11/23/18at 08:12; Admin Dose 1 INH; Start 11/19/18 at 12:00 Diagnostic Test (Pha) (Accu-Chek) 1 ea 2 HOURS AFTER MEALS XX Last administered on 11/23/18at 13:49; Admin Dose 1 EA; Start 11/19/18 at 13:50 Diagnostic Test (Pha) (Accu-Chek) 1 ea AC MEALS XX Last administered on 10/29 06/14at 11:27; Admin Dose 1 EA; Start 11/19/18 at 17:25 Aspirin (Halfprin) 81 mg DAILY PO Last administered on 11/23/18at 08:11; Admin Dose 81 MG; Start 11/20/18 at 09:00 Insulin Aspart (Novolog Insulin Pen) (Adult SC Insulin - Mild Algorithm)... AC MEALS AND BEDTIME SC Last administered on 11/23/18at 11:27; Admin Dose 1 UNIT; Start 11/20/18 at 21:00 Loratadine (Claritin) 10 mg DAILY PO Last administered on 11/23/18at 08:11; Admin Dose 10 MG; Start 11/21/18 at 11:30 Acetylcysteine (Nac) 600 mg BID PO Last administered on 11/23/18at 08:11; Admin Dose 600 MG; Start 11/22/18 at 09:00 Miscellaneous Information (* Miscellaneous Pharmacy Order) HOLD all METFORMIN ... ONCE XX ; Start 11/22/18 at 09:00; Stop 11/24/18 at 08:59 KIKE RIBEIRO MD Nov 23, 2018 15:43
--- NOTE | 2018-11-23 18:44 | NUR ---
alert and oriented, continues waiting for O2 delivery
[2018-11-23] MEDS: traZODone 50 MG TAB PO SCH (20:52)
[2018-11-23] MEDS: ATORVASTATIN 10 MG TAB PO SCH (20:52)
[2018-11-23] MEDS: ALFUZOSIN (SR) 10 MG TAB PO SCH (20:53)
--- NOTE | 2018-11-23 23:47 | NUR ---
Pt is alert and oriented x4. On o2 via nasal cannula. Was supposed to get discharged this evening but the O2 delivery hasn't been done. pt aware he's going home tomorrow instead. Denies pain or discomfort. Pt calls appropriately using call light. Bed alarm on .
[2018-11-24] VITALS (8 sets, daily range): BP systolic 114–130; BP diastolic 55–62; PULSE 84–122; RESP 16–18
[2018-11-24] MEDS: ENOXAPARIN 60 MG/0.6 ML SYG SC SCH (05:29)
--- NOTE | 2018-11-24 06:20 | NUR ---
Pt slept fairly last noc. Keeps on removing his O2 and his o2 level drops to 60'-70'. Keep reminding him that he needed his O2. His O2 right now is on with 95% o2 sat. He's watching TV at this time.
[2018-11-24] MEDS: Insulin NOVOLOG SS MILD Algorithm (SS with meals and bedtime) SC SCH ×3 (07:34→17:06)
[2018-11-24] MEDS: ACCU-CHEK XX SCH ×5 (07:35→17:01)
[2018-11-24] MEDS: FLUTICASONE/VILANTEROL 100-25 INH SCH (08:01)
[2018-11-24] MEDS: ACETYLCYSTEINE 600 MG CAP PO SCH (08:02)
[2018-11-24] MEDS: FINASTERIDE 5 MG TAB PO SCH (08:02)
[2018-11-24] MEDS: LORATADINE 10 MG TAB PO SCH (08:02)
[2018-11-24] MEDS: ASPIRIN (EC) 81 MG TAB PO SCH (08:02)
--- NOTE | 2018-11-24 10:53 | NUR ---
[facility] Follow Up; Followed up with Jose from [employer] about home oxygen delivery and how it was not brought at bedside overnight. He will get in touch with their supplier and get back once they have arranged it, will inform Care Team with any updates. Addendum: 11/24/18 at 1524 by TEA CASAREZ RN CM Home Oxygen Supply: Followed up with [facility] about home oxygen setup. They received order from [employer] and en route for delivery of portable oxygen at bedside. However unable to give an estimated time of delivery, will standby for further assistance but they ensured oxygen will be brought to Patient today.
--- NOTE | 2018-11-24 11:24 | PN ---
DATE: 11/24/2018 SUBJECTIVE: The patient is stable. No events overnight. No fevers or chills. OBJECTIVE: VITAL SIGNS: Blood pressure is 114/55, pulse 100, respirations 16, temperature 98.1. HEENT: Head is normocephalic. NECK: Supple. HEART: Regular rate. LUNGS: Show diminished breath sounds at the base. ABDOMEN: Soft, nontender to palpation without rebound or guarding. EXTREMITIES: Negative for clubbing, cyanosis. No edema. DERMATOLOGIC: No rashes. MUSCULOSKELETAL: No joint effusion. NEUROLOGIC: No change in exam. MEDICATIONS: Have been reviewed. LABORATORY DATA: Show sodium 138, potassium 5.0, BUN 49, creatinine 1.08. ASSESSMENT AND PLAN: 1. Nonoliguric acute kidney injury on top of chronic kidney disease with previous baseline creatinin e of 1 to 1.2 mg/dL. Etiology of acute kidney injury is secondary to hemodynamics and diuretics. Th e patient's renal function improved. No evidence of contrast-associated nephropathy. Continue [facility] nt treatment plan, supportive care, renally dose all meds. 2. Anemia. Monitor hemoglobin and chills. 3. Mineral bone disorder. Monitor calcium and phosphorus levels. 4. Acute on chronic heart failure. The patient is currently compensated. Continue medical manageme nt, holding diuretic therapy. 5. Vws-DE-rdpndmpig myocardial infarction. The patient is status post cardiac catheterization. Shon antoine current treatment plan. 6. Hypertension. Continue current blood pressure regimen. 7. Severe aortic stenosis. Continue to monitor. Follow up with cardiology. 8. Diabetes. Continue current insulin regimen. Dictated By: PADILLA MCNALLY DO NR/NTS Conf#: [id number] DID#: [id number] CC: KIKE RIBEIRO MD; MERVAT FERRO MD;*End*
--- NOTE | 2018-11-24 13:26 | CONS ---
Date/Time of Note Date/Time of Note DATE: 11/24/18 TIME: 13:25 Assessment/Plan Assessment/Plan Hospital Course Assessment: Acute on chronic systolic and diastolic heart failure - LVEF 30-35% with global hypokinesis, mild LVH with grade 2 diastolic dysfunction; improved with diuresis, now RAP 4 and PCWP 11 on cardiac catheterization Severe aortic stenosis - calculated BERNICE 0.67 cm2, DI 0.21 NSTEMI - 2v CAD with CARPENTER WOODEN TANK ERECTING of proximal circumflex and 95% mid RCA Acute kidney injury History of hypertension Dyslipidemia Diabetes mellitus Chronic obstructive pulmonary disease Recommendations: -off Lasix -off lisinopril and metoprolol due to borderline blood pressures -continue aspirin 81mg daily -continue statin Dr. Vega had discussion with son regarding PCI/TAVR versus AVR/CABG. P atient felt to be high surgical risk and patient and his son would prefer PCI/TAVR. Recommend outpatient TAVR work up. Patient will need to follow up with his primary care provider for referral. Result Diagram: 11/24/18 0539 11/24/18 0539 Results 24hrs Laboratory Tests Test 11/23/18 13:46 11/23/18 17:07 11/23/18 20:55 11/24/18 01:54 Bedside Glucose 249 H 250 H 265 H 149 Test 11/24/18 05:39 11/24/18 07:30 11/24/18 10:07 11/24/18 11:52 White Blood 7.7 Count Red Blood Count 4.19 L Hemoglobin 8.9 L Hematocrit 29.0 L Mean Corpuscular 69.2 L Volume Mean Corpuscular 21.2 L Hemoglobin Mean Corpuscular 30.7 L Hemoglobin Laura nt Red Cell 15.7 H Distribution Width Platelet Count 163 Mean Platelet 9.5 Volume Immature 0.800 H Granulocytes % Neutrophils % 76.7 Lymphocytes % 15.9 Monocytes % 6.5 Eosinophils % 0.1 Basophils % 0.0 Nucleated Red 0.0 Blood Cells % Immature 0.060 H Granulocytes # Neutrophils # 5.9 Lymphocytes # 1.2 Monocytes # 0.5 Eosinophils # 0.0 Basophils # 0.0 Nucleated Red 0.0 Blood Cells # Sodium Level 138 Potassium Level 5.0 Chloride Level 98 Carbon Dioxide 33 H Level Anion Gap 7 Blood Urea 49 #H Nitrogen Creatinine 1.08 Est Glomerular Filtrat Rate mL/min Glucose Level 132 Calcium Level 8.2 L Phosphorus Level 3.0 Magnesium Level 2.1 Bedside Glucose 144 237 H 213 Consultation Date/Type/Reason Admit Date/Time Nov 19, 2018 at 02:06 Initial Consult Date Type of Consult Cardiology 24 HR Interval Summary Free Text/Dictation Awaiting discharge pending home oxygen setup. Detailed Summary Additional Comments 14 point review of systems without changes. Exam/Review of Systems Vital Signs Vitals Vital Signs Date Temp Pulse Resp B/P (MAP) Pulse Ox O2 O2 Flow FiO2 Time Delivery Rate 11/24/18 119 12:07 11/24/18 98.0 16 130/62 98 Nasal 11:06 (84) Cannula 11/24/18 2.0 08:00 Intake and Output 11/23/18 11/23/18 11/24/18 1515:00 23:00 07:00 IntakeIntake Total 950 ml 1000 ml OutputOutput Total 860 ml 900 ml BalanceBalance 90 ml 100 ml Exam Constitutional: alert, well developed Psych: no complaints, nl mood/affect Head: normocephalic, atraumatic Eyes: nl conjunctiva, nl lids ENMT: nl external ears & nose, nl nasal mucosa & septum Neck: supple, non-tender, jvd Respiratory: diminished breath sounds; No wheezing Cardiovascular: systolic murmur Gastrointestinal: soft, non-tender Musculoskeletal: nl extremities to inspection Extremities: No cyanosis, No clubbing, No edema Medications Medications Current Medications IV Flush (NS 3 ml) 3 ml PER PROTOCOL IV ; Start 11/19/18 at 05:30 Ondansetron HCl (Zofran Inj) 4 mg Q6H PRN IV NAUSEA AND/OR VOMITING; Start 11/19/18 at 05:30 Nitroglycerin (Nitroglycerin (Sl Tab) 0.4 Mg) 1 tab Q5M PRN SL CHEST PAIN; Start 11/19/18 at 05:30 Acetaminophen (Tylenol Tab) 650 mg Q6H PRN PO PAIN LEVEL 1-3 OR FEVER; Start 11/19/18 at 05:30 Albuterol/ Ipratropium (Duoneb) 3 ml Q2H RESP THERAPY PRN HHN SHORTNESS OF BREATH; Start 11/19/18 at 05:30 Albuterol (Ventolin Hfa) 2 puff Q4H RESP THERAPY PRN INH WHEEZING AND SOB; Start 11/19/18 at 05:30 Trazodone HCl (Desyrel) 50 mg QHS PO Last administered on 11/23/18at 20:52; Admin Dose 50 MG; Start 11/19/18 at 21:00 Atorvastatin Calcium (Lipitor) 10 mg DAILY@21 PO Last administered on at 20:52; Admin Dose 10 MG; Start 11/19/18 at 21:00 Enoxaparin Sodium (Lovenox) 50 mg Q24H SC Last administered on 11/24/18at 05:29; Admin Dose 50 MG; Start 11/19/18 at 06:00 Miscellaneous Information 1 ea NOTE XX ; Start 11/19/18 at 06:00 Glucose (Glutose) 15 gm Q15M PRN PO DECREASED GLUCOSE; Start 11/19/18 at 06:00 Glucose (Glutose) 22.5 gm Q15M PRN PO DECREASED GLUCOSE; Start 11/19/18 at 06:00 Dextrose (D50w Syringe) 25 ml Q15M PRN IV DECREASED GLUCOSE; Start 11/19/18 at 06:00 Dextrose (D50w Syringe) 50 ml Q15M PRN IV DECREASED GLUCOSE; Start 11/19/18 at 06:00 Glucagon (Glucagen) 1 mg Q15M PRN IM DECREASED GLUCOSE; Start 11/19/18 at 06:00 Glucose (Glutose) 15 gm Q15M PRN BUCCAL DECREASED GLUCOSE; Start 11/19/18 at 06:00 Alfuzosin HCl (Uroxatral) 10 mg HS PO Last administered on 11/23/18at 20:53; Admin Dose 10 MG; Start 11/19/18 at 21:00 Finasteride (Proscar) 5 mg DAILY PO Last administered on 11/24/18at 08:02; Admin Dose 5 MG; Start 11/19/18 at 11:30 Fluticasone/ Vilanterol (Breo Ellipta 100-25 Mcg Inh) 1 inh DAILY INH Last administered on 11/24/18at 08:01; Admin Dose 1 INH; Start 11/19/18 at 12:00 Diagnostic Test (Pha) (Accu-Chek) 1 ea 2 HOURS AFTER MEALS XX Last administered on 11/24/18at 10:08; Admin Dose 1 EA; Start 11/19/18 at 13:50 Diagnostic Test (Pha) (Accu-Chek) 1 ea AC MEALS XX Last administered on 11/24/18 11:53; Admin Dose 1 EA; Start 11/19/18 at 17:25 Aspirin (Halfprin) 81 mg DAILY PO Last administered on 11/24/18 08:02; Admin Dose 81 MG; Start 11/20/18 at 09:00 Insulin Aspart (Novolog Insulin Pen) (Adult SC Insulin - Mild Algorithm)... AC MEALS AND BEDTIME SC Last administered on 11/24/18 11:55; Admin Dose 2 UNIT; Start 11/20/18 at 21:00 Loratadine (Claritin) 10 mg DAILY PO Last administered on 11/24/18 08:02; Admin Dose 10 MG; Start 11/21/18 at 11:30 Acetylcysteine (Nac) 600 mg BID PO Last administered on 11/24/18 08:02; Admin Dose 600 MG; Start 11/22/18 at 09:00 KIKE RIBEIRO MD Nov 24, 2018 13:26
--- NOTE | 2018-11-24 16:55 | DS ---
DATE OF ADMISSION: 11/19/2018 DATE OF DISCHARGE: 11/24/2018 FINAL DIAGNOSES: 1. Acute on chronic respiratory failure: Improved. The patient is on 2 liters of oxygen at home. 2. Acute on chronic systolic and diastolic heart failure, status post diuresis, currently compensate d. 3. Severe aortic stenosis. Plan for outpatient workup for TAVR. 4. [id number]-hdlkayary myocardial infarction with 2-vessel coronary artery disease with chronic total o cclusion of the proximal circumflex and 95% occlusion in the mid RCA on angiogram: The patient is se en to be followed again outpatient for intervention. 5. Diabetes mellitus type 2: A1c is 6.0. 6. Coronary artery disease. 7. Chronic obstructive pulmonary disease with mild exacerbation, resolved. 8. Transaminitis, acute. Level is trending down. 9. Remote tobacco user. 10. Dyslipidemia, on statin. 11. Benign prostatic hypertrophy. 12. History of hypertension, currently with underlying hypotensive: Antihypertensives on hold. 13. Chronic hypochromic microcytic anemia secondary to iron deficiency, status post intravenous iron replacement therapy. 14. Lactic acidosis, resolved. 15. Acute kidney injury on chronic kidney disease, improved. 16. Chronic cardiomyopathy with ejection fraction of 30% to 35%. 17. Do not resuscitate/do not intubate. DISPOSITION: To home with family and home health care. HOSPITAL COURSE: Please review my discharge summary that was dictated 11/23/2018. FOLLOWUP: Follow up with primary care doctor as outpatient, follow up with cardiothoracic surgery. DISCHARGE MEDICATIONS: For complete list of his medications, please review the patient's discharge m edication list. DIET: Recommended diet is a cardiac diet. ACTIVITIES: As tolerated. The patient will also be discharged with home physical therapy. Note that the patient's discharge was held from 11/23/2018 due to awaiting the oxygen to be delivered . The patient is to be discharged . Time spent on coordination today so far has been less than half hour. Dictated By: SHRUTHI MELENDREZ MD BA/NTS Conf#: [id number] DID#: [id number] CC: MERVAT FERRO MD; KIKE RIBEIRO MD;*EndCC*
--- NOTE | 2018-11-24 20:00 | NUR ---
Pt being discharged. Discharge paperwork explained, signed and given to pt. No IV in place at time of report. 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 All ID bands were removed from pt. Pt was discharged with portable oxygen on 2 liters per nasal cannula. No acute distress noted or stated. Pt escorted down to front lobby via wheelchair by pt volunteer and accompanied by pt son.
== END 2018-11-24 19:58 | disposition home health service (06) | DRG 280 ==
LOC: E/R 00:06 → ICU 02:06 → TEL 09:32
PROVIDERS: ADMIT Internal Medicine; ATTEND Internal Medicine
PROC: B2041ZZ Plain Radiography of Right Heart using Low Osmolar Contrast (ICD-10-PCS; 2018-11-22)
PROC: 4A023N8 Measurement of Cardiac Sampling and Pressure, Bilateral, Percutaneous Approach (ICD-10-PCS; principal; 2018-11-22 07:30)
PROC: B2011ZZ Plain Radiography of Multiple Coronary Arteries using Low Osmolar Contrast (ICD-10-PCS; 2018-11-22 07:30)
DX: I21.4 Non-ST elevation (NSTEMI) myocardial infarction (principal); I50.43 Acute on chronic combined systolic (congestive) and diastolic (congestive) heart failure; J96.02 Acute respiratory failure with hypercapnia; J96.01 Acute respiratory failure with hypoxia; I13.0 Hypertensive heart and chronic kidney disease with heart failure and stage 1 through stage 4 chronic kidney disease, or unspecified chronic kidney disease; N17.9 Acute kidney failure, unspecified; E87.2 Acidosis; Z66 Do not resuscitate; E83.42 Hypomagnesemia; N18.3 Chronic kidney disease, stage 3 (moderate); I35.0 Nonrheumatic aortic (valve) stenosis; I25.119 Atherosclerotic heart disease of native coronary artery with unspecified angina pectoris; Z87.891 Personal history of nicotine dependence; E11.9 Type 2 diabetes mellitus without complications; J44.9 Chronic obstructive pulmonary disease, unspecified; D50.9 Iron deficiency anemia, unspecified
CPT/HCPCS: 36415; 36600; 71045; 76775; 80048; 80053; 80061; 81001; 81003; 82043; 82550; 82553; 82728; 82803; 82962; 83036; 83540; 83605; 83735; 83880; 84100; 84155; 84300; 84443; 84484; 85025; 85610; 85730; 86803; 87040; 87086; 87340; 87400; 93005; 93306; 93460; 94664; 96374; C1887; C1894; J0692; J1644; J1815; J1940; J1956; J2250; J2930; J3010; J3475; J7030; J7040; Q9967